=== PATIENT | female | born 1945 | race Caucasian/White ===

== ENCOUNTER 2016-12-03 13:10 | Inpatient (IN) | payer OTHER ==
[2016-12-03 13:33] VITALS: BMI 25.6
--- NOTE | 2016-12-03 13:40 | CT ---
CT HEAD WITHOUT CONTRAST CLINICAL HISTORY: 71-year-old female status post fall with loss of memory and combativeness. COMPARISON: CT head December 05, 2011. TECHNIQUE: Multiple, non-contrasted axial CT images were obtained from the skull base to the crania l vertex. Coronal and sagittal reformats were performed. FINDINGS: There are no abnormal intra- or extra-axial fluid collections, midline shift, or mass effe ct. Milton-white differentiation is normal. Global cortical involutional changes are present that are advanced for the patient's stated age. The ventricular system is enlarged but commensurate with the degree of sulcal prominence. Periventricular and supraventricular white matter hypodensity is presen t that is nonspecific in appearance, but most likely to represent microvascular ischemic changes. At herosclerotic vascular calcification is present within the carotid siphons and distal vertebral rosana morgan. The paranasal sinuses, mastoid air cells, and tympanic spaces are clear. Hyperostosis frontalis inte rna. IMPRESSION: 1. No definite evidence of an acute intracranial process. If clinical concern persists, consider MRI /MRA brain. 2. Moderate microvascular white matter ischemic changes, with associated volume loss. Reported By:
[2016-12-03] MEDS ORDERED: ADACEL TDaP IM ONE ×2 (13:58→14:42)
[2016-12-03] MEDS ORDERED: NS 1000 ML 1,000 ML IV SCH (14:00)
--- NOTE | 2016-12-03 14:07 | DR.AMS ---
HPI - Time Seen Time seen: 14:00 - PCP Primary Care Physician: DARREN MARQUEZ - Complaint Cheif Complaint Doctors Comments: EMS states they were called to unresponsive non breathing patient but when they got there the patient appeared post-ictal. Spouse state patient was walking by the tv and fell and hit her head and cut her right arm. States they are unsure of her last tetanus. EMS states patient became alert and was answering questions appropiately and they stated and IV and begin the load her in the truck and she had another unresponsive spell, hyperextended body, left facial drop with garbled speach. States patient became combative; pulled out her IV with garabled speech. Family members denies previous history of seizures. Spouse states the patient has been complaining of a headache for the past two days. Presently patient complains of hurting no matter where she is touched. Family states speech is back to normal. Patient denies nausea or vomiting. Chief Complaint:: EMS BRINGS IN PT. WITH AMS. THEY STATE UPON THEIR ARRIVAL, PT. WAS LYING IN THE FLOOR WITH AMS AND APPEARED TO HAVE A SEIZURE. AFTER EPISODE, PT. BECAME ALERT AND WAS SPEAKING WITH EMS PERSONNEL. PT. THEN HAD ANOTHER EPISODE AND HAD LEFT SIDED FACIAL DROOPING. AFTER 2ND EPSIODE, PT. BECAME COMBATIVE AND HAD GARBLED SPEECH. SPOUSE STATES PT. FELL THIS MORNING AND HIT HER HEAD AND HAD BEEN C/O HEADACHE. UNKNOWN LAST TIME NORMAL. - Reviewed Nurses Notes Reviewed: Yes - Source History Provided: Patient, Family Member, EMS - Mode of Arrival Mode of Arrival: EMS - Timing Onset of Chief Complaint: 12/03/16 Came On: Suddenly Symptom Onset: Unknown - Duration Duration: Intermittent How lon Duration: Days - Quality Quality: Decreased Alertness, Change in Behavior, Confusion - Severity Severity: Moderate, Unresponsive - Context Recent: Trauma (fell at home and hit head) History Of: None - Associated Signs and Symptoms Associated Signs and Symptoms: Headache, Slurred Speech, Change in Behavior, Unresponsiveness, Seizure PMH - PMH Past Medical History: Yes Past Medical History: Diabetes, Hypertension Past Surgical History: Yes Surgical History: Cholecystectomy, Hysterectomy Past Surgical History Comment: PACEMAKER - Family History History of Family Medical Conditions: Yes Family Medical History Comment: CVA - Social History Does patient currently use any type of tobacco product: No Have you used tobacco products in the last 12 months: No Type of Tobacco Use: None Does any household member use tobacco: No Alcohol Use: None Do you use any recreational Drugs:: No Lives With: Spouse Lives Where: Home - infectious screening In the last 2 months have you had wt loss of >10#?: NO Have you had fever, night sweats or hemotysis?: No Have you traveled outside the country in the last 6 months?: No Isolation: Standard ROS - Review of Systems Constitutional: No Symptoms Reported. negative: See HPI, Chills, Diaphoresis, Fever, Malaise, Weakness, Irritable, Fatigue, Loss of Appetite, Other Eyes: No Symptoms Reported ENTM: No Symptoms Reported. negative: See HPI, Ear Pain, Ear Discharge, Pulling on Ears, Hearing Loss, Nose Pain, Nose Discharge, Epistaxis, Nose Congestion, Mouth Pain, Mouth Swelling, Loose Teeth, Drooling, Throat Pain, Throat Swelling, Ear Foreign Body Respiratoy: No Symptoms Reported. negative: See HPI, Productive Cough, Non- Productive Cough, Moist Cough, Dry Cough, Hacking Cough, Barking Cough, Brassy Cough, Orthopnea, Short of Breath, Stridor, Wheezing, Hemoptysis, Other Cardiovascular: No Symptoms Reported Gastrointestinal/Abdominal: No Symptoms Reported. negative: See HPI, Abdominal Pain, Constipation, Diarrhea, Nausea, Vomiting, Food Intolerance, Other Genitourinary: No Symptoms Reported Neurological: No Symptoms Reported, Seizure, Speech Problem Musculoskeletal: Right, Forearm (6 cm linear laceration right arm) Integumentary: No Symptoms Reported, Wound (right arm with laceration) Hematologic/Lymphatic: No Symptoms Reported Endocrine: No Symptoms Reported Psychiatric: No Symptoms Reported. negative: See HPI, Anxiety, Depression, Hallucinations, Excessive crying, Suicidal, Other PE - Vitals Vital Signs: Pulse Pulse Resp BP BP Pulse Ox 12/03/16 15:11 86 18 146/77 97 12/03/16 14:17 103 H 20 137/78 97 12/03/16 13:47 99 H 20 139/79 100 12/03/16 13:25 121 H 17 142/66 96 07/16/15 16:40 165/94 - General Limitations: No Limitations General Appearance: Alert, In No Apparent Distress - Head Head Exam: Normal Inspection, Normocephalic. negative: Atraumatic (right forehead with ecchymotic area 3 cm; right parietal nodule) Head Exam Physical: Contusion, Hematoma. negative: Laceration, Abrasion, Raccoon Eyes, Amado's Sign, Tenderness of Temporal Artery, CSF Rhinorrhea, CSF Otorrhea, Other - Eyes Eye exam: Normal Appearance, PERRL, EOMI. negative: Scleral Icterus, Conjunctival Injection, Nystagmus, Miosis, Mydrasis, Periorbital Swelling, Periorbital Tenderness, Other Pupils: Regular, Round: Bilateral - ENT ENT Exam: Normal Exam, Normal Oropharynx, Normal External Ear Exam, Mucous Membranes Moist, TM's Normal Bilaterally External Ear Exam: Normal External Inspection TM/Canal Exam: Bilateral Normal Nose Exam: Normal Nose Exam Mouth Exam: Normal Inspection Throat Exam: Normal Inspection - Neck Neck Exam: Normal Inspection, Full ROM, Trachea Midline. negative: Tenderness, Meningismus, Lymphadenopathy, Thyromegaly, Other - Chest Chest Inspection: Normal Inspection, Symmetric Chest Wall Rise - Respiratory Respiratory Exam: Normal Lung Sounds Bilat Respiratory Exam: Bilateral Clear to Auscultation - Cardiovascular Cardiovascular Exam: Regular Rate, Normal Rhythm, Normal Heart Sounds - Abdominal Exam Abdominal Exam: Normal Inspection, Normal Bowel Sounds, Soft. negative: Distention, Tenderness, Guarding, Rebound, Rigidity, Dimnished Bowel Sounds, Hyperactive Bowel Sounds, Hypoactive Bowel Sounds, Organomegaly, Trauma, Incision, Ascites, Mass, Bruit, Pulsatile Mass, Hernia, Other Abdominal Tenderness: negative: RUQ, RLQ, LUQ, LLQ, Epigastrium, Suprapubic, Diffuse, Mild, Moderate, Severe, Other - Extremities Extremities Exam: Normal Inspection, Full ROM, Tenderness (right arm with 6 cm laceration), Normal Capillary Refill. negative: Edema, Joint Swelling, Calf Tenderness, Other - Back Back Exam: Normal Inspection, Full ROM. negative: Tenderness, (R) CVA Tenderness, (L) CVA Tenderness, Muscle Spasm, Paraspinal Tenderness, Vertebral Tenderness, Rashes, (R) Sciatic Notch Tenderness, (L) Sciatic Notch Tendern, (R ) Straight Leg Raise, (L) Straight Leg Raise, Other - Neurological Neurological Exam: Alert, CN II-XII Intact, Reflexes Normal. negative: Oriented X3 (orientated to person and olace), Normal Gait (gait not tested), Motor Sensory Deficit Patient Oriented To: Person, Place Speech: Expressive Aphasia Cranial Nerve Exam: EOM Function (II, III, IV, ): Normal, Facial Sensation (V) : Normal, Facial Palsy (VII): Normal, Gag reflex (XI): Normal, Spinal Accessory Function (XI): Normal, Tongue Deviation: Normal Cerebellar Function: negative: Normal Gait (gait not tested) Motor Strength - LUE: 5/5 Motor Strength - RUE: 5/5 Motor Strength - LLE: 5/5 Motor Strength - RLE: 5/5 Upper Motor Neuron Exam: Babinski Sign: Normal Sensory Exam Upper Extremity: Light Touch: Normal, Pin Prick: Normal DTR: achilles tendon (L): 2+, achilles tendon (R): 2+, Patellar (L): 2+, patellar (R): 2+ - Psychological Psychiatric Exam: Normal Affect, Normal Mood, Flat Affect. negative: Depressed , Agitated, Anxious, Manic, Homicidal Ideation, Suicidal Ideation, Other Expanded Psychiatric Exam: Confabulating - Skin Skin Exam: Warm, Dry, Intact, Normal Color Course - Consultation Called: 16:04 Call Returned: 16:04 (Dr. Hidalgo to admit) - Education/Counseling Education/Counseling: Patient, Family Educated On: Treatment, Diagnosis, Needs for Follow Up ROR - Labs Reviewed Laboratory Results Reviewed?: Yes (all labs and x-ray results reviewed and discussed with patient and family) Result Diagrams: 12/03/16 13:35 12/03/16 13:35 Laboratory: WBC 11.2 X10^3/uL (3.6-10.0) H 12/03/16 13:35 RBC 4.29 X10^6/uL (3.5-5.4) 12/03/16 13:35 Hgb 12.4 g/dL (12.0-16.0) 12/03/16 13:35 Hct 36.9 % (36.0-47.0) 12/03/16 13:35 MCV 86.2 fL (80.0-100.0) 12/03/16 13:35 MCH 28.9 pg (27.0-34.0) 12/03/16 13:35 MCHC 33.6 g/dL (33.0-35.0) 12/03/16 13:35 RDW 13.7 % (11.6-16.5) 12/03/16 13:35 Plt Count 328 X10^3/uL (150.0-450.0) 12/03/16 13:35 MPV 7.0 fL (7.4-11.0) L 12/03/16 13:35 Neut % 83.4 % (42.0-75.0) H 12/03/16 13:35 Lymph % 12.2 % (21.0-51.0) L 12/03/16 13:35 [place] % 4.1 % (0.0-13.0) 12/03/16 13:35 Eos % 0.0 % (0.9-2.9) L 12/03/16 13:35 Baso % 0.3 % (0.2-1.0) 12/03/16 13:35 Neut # 9.3 x10^3/uL (2.2-4.8) H 12/03/16 13:35 Lymph # 1.4 X10^3/uL (1.3-2.9) 12/03/16 13:35 [place] # 0.5 x10^3/uL (0.3-0.8) 12/03/16 13:35 Eos # 0.0 x10^3/uL (0.0-0.2) 12/03/16 13:35 Baso # 0.0 X10^3/uL (0.0-0.1) 12/03/16 13:35 Absolute Nucleated RBC 0.0 /100WBC 12/03/16 13:35 INR Target Range - 12/03/16 13:35 INR 1.28 (0.8-1.3) 12/03/16 13:35 PTT 23.5 SECONDS (22.9-36.5) 12/03/16 13:35 PTT Comment - 12/03/16 13:35 Sodium 141 mmol/L (136-145) 12/03/16 13:35 Corrected Sodium 143 mmol/L (136-145) 12/03/16 13:35 Potassium 2.9 mmol/L (3.5-5.1) L* 12/03/16 13:35 Chloride 103 mmol/L (98-107) 12/03/16 13:35 Carbon Dioxide 16.4 mmol/L (21-32) L 12/03/16 13:35 BUN 15 mg/dL (7-18) 12/03/16 13:35 Creatinine 1.46 mg/dL (0.55-1.02) H 12/03/16 13:35 Est GFR (MDRD) Af Amer 45 (>60) L 12/03/16 13:35 Est GFR (MDRD) Non-Af 38 (>60) L 12/03/16 13:35 Glucose 202 mg/dL (65-99) H 12/03/16 13:35 Calcium 8.2 mg/dL (8.5-10.1) L 12/03/16 13:35 Corrected Calcium TNP 12/03/16 13:35 Magnesium 2.4 mg/dL (1.7-2.9) 12/03/16 13:35 Total Bilirubin 1.40 mg/dL (0.2-1.0) H 12/03/16 13:35 AST 51 Units/L (15-37) H 12/03/16 13:35 ALT 47 Units/L (12-78) 12/03/16 13:35 Alkaline Phosphatase 110 Units/L (46-116) 12/03/16 13:35 Creatine Kinase 132 Units/L (26-192) 12/03/16 13:35 CK-MB (CK-2) 3.5 ng/mL (0-4.0) 12/03/16 13:35 CK/CKMB % Calc 2.7 % (<4) 12/03/16 13:35 Troponin I 0.35 ng/mL (0-1.5) 12/03/16 13:35 Total Protein 8.1 g/dL (6.4-8.2) 12/03/16 13:35 Albumin 3.8 g/dL (3.4-5.0) 12/03/16 13:35 Globulin 4.3 g/dL (2.5-4.5) 12/03/16 13:35 Albumin/Globulin Ratio 0.9 Ratio (1.1-2.1) L 12/03/16 13:35 Specimen Type Catherized urine 12/03/16 14:11 Urine Color Yellow (YELLOW) 12/03/16 14:11 Urine Appearance Clear (CLEAR) 12/03/16 14:11 Urine pH 6.5 (5.0 - 8.0) 12/03/16 14:11 Ur Specific [place] 1.020 (1.000-1.030) 12/03/16 14:11 Urine Protein 2+ (NEGATIVE) 12/03/16 14:11 Urine Glucose (UA) Negative (NEGATIVE) 12/03/16 14:11 Urine Ketones 1+ (NEGATIVE) 12/03/16 14:11 Urine Occult Blood 4+ (NEGATIVE) 12/03/16 14:11 Urine Nitrite Negative (NEGATIVE) 12/03/16 14:11 Urine Bilirubin Negative (NEGATIVE) 12/03/16 14:11 Urine Urobilinogen 2+ (NORMAL) 12/03/16 14:11 Ur Leukocyte Esterase 1+ (NEGATIVE) 12/03/16 14:11 Urine RBC 02 - 04 /HPF (NEGATIVE) 12/03/16 14:11 Urine WBC 01 - 04 /HPF (NEGATIVE) 12/03/16 14:11 Ur Squamous Epith Cells Few /HPF (NEGATIVE) 12/03/16 14:11 Ur Renal Epithelial Cell Rare /HPF (NEGATIVE) 12/03/16 14:11 Amorphous Sediment 1+ /HPF (NEGATIVE) 12/03/16 14:11 Urine Bacteria Negative /HPF (NEGATIVE) 12/03/16 14:11 Urine Mucus Moderate /HPF (NEGATIVE) 12/03/16 14:11 Ur Culture Indicated? No/not indicated 12/03/16 14:11 - XRAY XRAY Interpreted by: Radiologist (CT head: No definite evidence of acute intracranial process. Moderate microvasculat white matter ischemic changes.) XRAY Findings: CXR: No radiographic evidence of acute cardiopulmonary process - Diagnosis Discharge Problem: Prob seizure disorder, new onset, Hypokalemia, Contusion of head, Laceration of right upper arm, Fall against object, Chronic kidney disease Altered mental status Qualifiers: Altered mental status type: transient alteration of awareness Qualified Code(s) : R40.4 - Transient alteration of awareness - Discharge Plan Disposition: ADMITTED INPATIENT Condition: Stable - Follow ups/Referrals Follow ups/Referrals: DARREN MARQUEZ [Primary Care Provider] - 3 days - Instructions
[2016-12-03 14:12] LABS: BASOPHILS % (AUTO) 0.3 % (0.2-1.0); HEMATOCRIT 36.9 % (36.0-47.0); HEMOGLOBIN 12.4 g/dL (12.0-16.0); LYMPHOCYTES # (AUTO) 1.4 X10^3/uL (1.3-2.9); LYMPHOCYTES % (AUTO) 12.2 % (21.0-51.0); MEAN CORPUSCULAR HEMOGLOBIN 28.9 pg (27.0-34.0); MEAN CORPUSCULAR HGB CONC 33.6 g/dL (33.0-35.0); MEAN CORPUSCULAR VOLUME 86.2 fL (80.0-100.0); MONOCYTES # (AUTO) 0.5 x10^3/uL (0.3-0.8); MONOCYTES % (AUTO) 4.1 % (0.0-13.0); NEUTROPHILS # (AUTO) 9.3 x10^3/uL (2.2-4.8); NEUTROPHILS % (AUTO) 83.4 % (42.0-75.0); PLATELET COUNT 328 X10^3/uL (150.0-450.0); RED BLOOD COUNT 4.29 X10^6/uL (3.5-5.4); RED CELL DISTRIBUTION WIDTH 13.7 % (11.6-16.5); WHITE BLOOD COUNT 11.2 X10^3/uL (3.6-10.0)
[2016-12-03 14:21] LABS: BILIRUBIN,URINE NEGATIVE (NEGATIVE); BLOOD/HEMOGLOBIN,URINE 4+ (NEGATIVE); GLUCOSE, URINE NEGATIVE (NEGATIVE); KETONES,URINE 1+ (NEGATIVE); LEUKOCYTE ESTERASE ,URINE 1+ (NEGATIVE); NITRITES,URINE NEGATIVE (NEGATIVE); PH,URINE 6.5 (5.0 - 8.0); PROTEIN,URINE 2+ (NEGATIVE); UROBILINOGEN,URINE 2+ (NORMAL)
[2016-12-03 14:26] LABS: ALANINE AMINOTRANSFERASE 47 Units/L (12-78); ALBUMIN 3.8 g/dL (3.4-5.0); ALKALINE PHOSPHATASE 110 Units/L (46-116); ASPARTATE AMINO TRANSFERASE 51 Units/L (15-37); BLOOD UREA NITROGEN 15 mg/dL (7-18); CALCIUM 8.2 mg/dL (8.5-10.1); CARBON DIOXIDE 16.4 mmol/L (21-32); CHLORIDE 103 mmol/L (98-107); CKMB % 2.7 % (<4); COR NA(FOR HYPERGLY) 143 mmol/L (136-145); CREATINE KINASE 132 Units/L (26-192); CREATINE KINASE MB 3.5 ng/mL (0-4.0); CREATININE 1.46 mg/dL (0.55-1.02); GLUCOSE 202 mg/dL (65-99); MAGNESIUM 2.4 mg/dL (1.7-2.9); SODIUM 141 mmol/L (136-145); TOTAL PROTEIN 8.1 g/dL (6.4-8.2); TROPONIN I 0.35 ng/mL (0-1.5); eGFR BLACK RACES 45 (>60); eGFR NON BLACK RACES 38 (>60)
[2016-12-03 14:33] LABS: APPEARANCE,URINE CLEAR (CLEAR); COLOR,URINE YELLOW (YELLOW)
[2016-12-03 14:37] LABS: AMORPHOUS SEDIMENT,UR 1+ /HPF (NEGATIVE); BACTERIA,URINE NEGATIVE /HPF (NEGATIVE); MUCUS,URINE MODERATE /HPF (NEGATIVE); RENAL EPITHELIAL CELLS,URINE RARE /HPF (NEGATIVE); SQUAMOUS EPITHELIAL CELL,UR FEW /HPF (NEGATIVE)
[2016-12-03] MEDS ORDERED: ZOFRAN INJ 4 MG VIAL IVP ONE (14:41)
[2016-12-03] MEDS ORDERED: ZOFRAN INJ 4 MG VIAL ONE (14:42)
--- NOTE | 2016-12-03 15:03 | RAD ---
HISTORY: Chest pain. Status post fall, altered mental status. Study: AP chest Comparison: 12/05/2011 Findings: There is a dual lead pacemaker device present. No acute displaced rib fractures are demonstrated, ho wever nondisplaced rib fractures may be radiographically occult. The lungs are clear. No consolidation. There are no pleural effusions. The tushar and cardiomediastinal silhouette appear normal. IMPRESSION: 1. No radiographic evidence of an acute cardiopulmonary process. Reported By:
[2016-12-03] MEDS ORDERED: NS 1/2 1000 ML IV 1,000 ML IV ONE (15:25)
[2016-12-03] MEDS: K-LYTE EFFERVESCENT PO SCH (15:36)
[2016-12-03] MEDS: NS 1/2 + KCL 20 MEQ/L 1,000 ML IV SCH (15:36)
[2016-12-03] MEDS ORDERED: HumuLIN R SC PRN (16:13)
[2016-12-03] MEDS: PROTONIX INJ 40 MG VIAL IVP SCH (17:18)
[2016-12-03] MEDS ORDERED: CEREBYX IVP ONE ×2 (21:30)
[2016-12-03] MEDS ORDERED: NS IVP ONE ×2 (21:30)
[2016-12-03] MEDS ORDERED: ATIVAN INJ 2 MG VIAL IVP PRN (22:24)
[2016-12-04] MEDS ORDERED: ZOFRAN INJ 4 MG VIAL IVP PRN (00:18)
[2016-12-04] MEDS: NS 1/2 + KCL 20 MEQ/L 1,000 ML IV SCH ×3 (00:33→15:54)
[2016-12-04 05:52] LABS: BASOPHILS # (AUTO) 0.1 X10^3/uL (0.0-0.1); BASOPHILS % (AUTO) 0.5 % (0.2-1.0); EOSINOPHILS % (AUTO) 0.2 % (0.9-2.9); HEMATOCRIT 34.7 % (36.0-47.0); HEMOGLOBIN 11.8 g/dL (12.0-16.0); LYMPHOCYTES # (AUTO) 1.2 X10^3/uL (1.3-2.9); LYMPHOCYTES % (AUTO) 8.3 % (21.0-51.0); MEAN CORPUSCULAR HEMOGLOBIN 28.8 pg (27.0-34.0); MEAN CORPUSCULAR VOLUME 84.8 fL (80.0-100.0); MEAN PLATELET VOLUME 7.4 fL (7.4-11.0); MONOCYTES # (AUTO) 0.9 x10^3/uL (0.3-0.8); MONOCYTES % (AUTO) 6.6 % (0.0-13.0); NEUTROPHILS # (AUTO) 11.7 x10^3/uL (2.2-4.8); NEUTROPHILS % (AUTO) 84.4 % (42.0-75.0); PLATELET COUNT 279 X10^3/uL (150.0-450.0); RED BLOOD COUNT 4.09 X10^6/uL (3.5-5.4); RED CELL DISTRIBUTION WIDTH 13.8 % (11.6-16.5); WHITE BLOOD COUNT 13.9 X10^3/uL (3.6-10.0)
[2016-12-04 06:16] LABS: ALANINE AMINOTRANSFERASE 46 Units/L (12-78); ALBUMIN 3.7 g/dL (3.4-5.0); ALKALINE PHOSPHATASE 99 Units/L (46-116); ASPARTATE AMINO TRANSFERASE 65 Units/L (15-37); BLOOD UREA NITROGEN 20 mg/dL (7-18); CALCIUM 8.1 mg/dL (8.5-10.1); CARBON DIOXIDE 26.2 mmol/L (21-32); CHLORIDE 102 mmol/L (98-107); CHOLESTEROL 147 mg/dL (0-200); COR NA(FOR HYPERGLY) 138 mmol/L (136-145); CREATININE 1.48 mg/dL (0.55-1.02); GLUCOSE 125 mg/dL (65-99); HDL CHOLESTEROL 49 mg/dL (40-60); SODIUM 137 mmol/L (136-145); TOTAL PROTEIN 7.8 g/dL (6.4-8.2); TRIGLYCERIDES 59 mg/dL (0-150); TROPONIN I 0.26 ng/mL (0-1.5); eGFR BLACK RACES 45 (>60); eGFR NON BLACK RACES 37 (>60)
[2016-12-04 06:22] LABS: CKMB % 0.3 % (<4); CREATINE KINASE MB 6.3 ng/mL (0-4.0)
[2016-12-04 06:23] LABS: CREATINE KINASE 2268 Units/L (26-192)
[2016-12-04] MEDS: K-LYTE EFFERVESCENT PO SCH (08:16)
[2016-12-04] MEDS: PROTONIX INJ 40 MG VIAL IVP SCH (08:27)
[2016-12-04] MEDS ORDERED: ATIVAN INJ 2 MG VIAL IVP PRN (08:59)
[2016-12-05] MEDS: NS 1/2 + KCL 20 MEQ/L 1,000 ML IV SCH ×4 (00:10→20:39)
[2016-12-05 05:01] LABS: BASOPHILS % (AUTO) 0.4 % (0.2-1.0); EOSINOPHILS % (AUTO) 0.1 % (0.9-2.9); HEMATOCRIT 33.1 % (36.0-47.0); HEMOGLOBIN 11.3 g/dL (12.0-16.0); LYMPHOCYTES # (AUTO) 1.3 X10^3/uL (1.3-2.9); LYMPHOCYTES % (AUTO) 14.8 % (21.0-51.0); MEAN CORPUSCULAR VOLUME 85.3 fL (80.0-100.0); MEAN PLATELET VOLUME 7.7 fL (7.4-11.0); MONOCYTES # (AUTO) 0.6 x10^3/uL (0.3-0.8); MONOCYTES % (AUTO) 7.1 % (0.0-13.0); NEUTROPHILS # (AUTO) 7.1 x10^3/uL (2.2-4.8); NEUTROPHILS % (AUTO) 77.6 % (42.0-75.0); PLATELET COUNT 220 X10^3/uL (150.0-450.0); RED BLOOD COUNT 3.88 X10^6/uL (3.5-5.4); RED CELL DISTRIBUTION WIDTH 13.7 % (11.6-16.5); WHITE BLOOD COUNT 9.1 X10^3/uL (3.6-10.0)
[2016-12-05 05:10] LABS: ALANINE AMINOTRANSFERASE 49 Units/L (12-78); ALBUMIN 3.3 g/dL (3.4-5.0); ALKALINE PHOSPHATASE 85 Units/L (46-116); ASPARTATE AMINO TRANSFERASE 74 Units/L (15-37); BLOOD UREA NITROGEN 21 mg/dL (7-18); CALCIUM 7.8 mg/dL (8.5-10.1); CARBON DIOXIDE 24.6 mmol/L (21-32); CHLORIDE 105 mmol/L (98-107); COR CA(FOR HYPOALB) 8.4 mg/dL (8.5-10.1); CREATININE 1.33 mg/dL (0.55-1.02); GLUCOSE 93 mg/dL (65-99); SODIUM 137 mmol/L (136-145); eGFR BLACK RACES 51 (>60); eGFR NON BLACK RACES 42 (>60)
[2016-12-05 05:48] LABS: TROPONIN I 0.25 ng/mL (0-1.5)
[2016-12-05 05:51] LABS: CKMB % 0.3 % (<4)
[2016-12-05 05:53] LABS: CREATINE KINASE MB 8.1 ng/mL (0-4.0)
[2016-12-05] MEDS: PROTONIX INJ 40 MG VIAL IVP SCH (08:06)
[2016-12-05] MEDS: K-LYTE EFFERVESCENT PO SCH (08:08)
[2016-12-05] MEDS ORDERED: ATIVAN INJ 2 MG VIAL IVP PRN (08:51)
[2016-12-05] MEDS ORDERED: SNACK - Diabetic Appropriate PO SCH (20:00)
[2016-12-06 05:21] LABS: BASOPHILS % (AUTO) 0.3 % (0.2-1.0); EOSINOPHILS % (AUTO) 0.3 % (0.9-2.9); HEMATOCRIT 34.2 % (36.0-47.0); HEMOGLOBIN 11.6 g/dL (12.0-16.0); LYMPHOCYTES # (AUTO) 1.1 X10^3/uL (1.3-2.9); LYMPHOCYTES % (AUTO) 11.5 % (21.0-51.0); MEAN CORPUSCULAR VOLUME 85.2 fL (80.0-100.0); MEAN PLATELET VOLUME 7.6 fL (7.4-11.0); MONOCYTES # (AUTO) 0.6 x10^3/uL (0.3-0.8); MONOCYTES % (AUTO) 6.7 % (0.0-13.0); NEUTROPHILS # (AUTO) 7.9 x10^3/uL (2.2-4.8); NEUTROPHILS % (AUTO) 81.2 % (42.0-75.0); PLATELET COUNT 253 X10^3/uL (150.0-450.0); RED BLOOD COUNT 4.01 X10^6/uL (3.5-5.4); RED CELL DISTRIBUTION WIDTH 13.5 % (11.6-16.5); WHITE BLOOD COUNT 9.7 X10^3/uL (3.6-10.0)
[2016-12-06 05:32] LABS: ALANINE AMINOTRANSFERASE 62 Units/L (12-78); ALBUMIN 3.4 g/dL (3.4-5.0); ALKALINE PHOSPHATASE 85 Units/L (46-116); ASPARTATE AMINO TRANSFERASE 103 Units/L (15-37); BLOOD UREA NITROGEN 21 mg/dL (7-18); CALCIUM 8.1 mg/dL (8.5-10.1); CARBON DIOXIDE 21.6 mmol/L (21-32); CHLORIDE 104 mmol/L (98-107); GLUCOSE 92 mg/dL (65-99); SODIUM 137 mmol/L (136-145); TOTAL PROTEIN 7.3 g/dL (6.4-8.2); eGFR BLACK RACES > 60 (>60); eGFR NON BLACK RACES 52 (>60)
[2016-12-06] MEDS: NS 1/2 + KCL 20 MEQ/L 1,000 ML IV SCH ×2 (06:23→08:11)
[2016-12-06] MEDS: K-LYTE EFFERVESCENT PO SCH (08:05)
[2016-12-06] MEDS: PROTONIX INJ 40 MG VIAL IVP SCH (08:11)
[2016-12-06 08:13] VITALS: BP 150/69
== END 2016-12-06 10:30 | disposition home or self-care (01) | DRG 884 ==
LOC: ER 13:12 → ICU 16:10 → OBSVTOIN 12-04 08:30
PROVIDERS: ADMIT Obstetrics & Gynecology Obstetrics; ATTEND Obstetrics & Gynecology Obstetrics
PROC: 3E0234Z Introduction of Serum, Toxoid and Vaccine into Muscle, Percutaneous Approach (ICD-10-PCS; principal; 2016-12-03)
DX: R40.4 Transient alteration of awareness (principal); S00.83XA Contusion of other part of head, initial encounter; S41.111A Laceration without foreign body of right upper arm, initial encounter; G40.802 Other epilepsy, not intractable, without status epilepticus; R51 Headache; W18.09XA Striking against other object with subsequent fall, initial encounter; E11.65 Type 2 diabetes mellitus with hyperglycemia; I12.9 Hypertensive chronic kidney disease with stage 1 through stage 4 chronic kidney disease, or unspecified chronic kidney disease; Z95.0 Presence of cardiac pacemaker; D72.828 Other elevated white blood cell count; E87.6 Hypokalemia; Y92.098 Other place in other non-institutional residence as the place of occurrence of the external cause; N18.9 Chronic kidney disease, unspecified; R94.4 Abnormal results of kidney function studies; F19.931 Other psychoactive substance use, unspecified with withdrawal delirium; R26.89 Other abnormalities of gait and mobility; Z23 Encounter for immunization
CPT/HCPCS: 36415; 51702; 70450; 71010; 80053; 80061; 80307; 81001; 82550; 82553; 83735; 84132; 84484; 85025; 85610; 85730; 93005; 93010; 96365; 96372; 96374; 99284; A4222; C9113; J7030; S0078; G0378; G0434; J1815; J2060; J2405

== ENCOUNTER 2016-12-11 07:08 | Emergency (ER) | payer OTHER ==
[2016-12-11 07:16] VITALS: BP 164/92; BMI 23.4
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
[2016-12-11 08:06] LABS: BASOPHILS # (AUTO) 0.1 X10^3/uL (0.0-0.1); BASOPHILS % (AUTO) 0.9 % (0.2-1.0); EOSINOPHILS # (AUTO) 0.1 x10^3/uL (0.0-0.2); EOSINOPHILS % (AUTO) 1.1 % (0.9-2.9); HEMATOCRIT 36.7 % (36.0-47.0); HEMOGLOBIN 12.9 g/dL (12.0-16.0); LYMPHOCYTES # (AUTO) 1.8 X10^3/uL (1.3-2.9); LYMPHOCYTES % (AUTO) 20.7 % (21.0-51.0); MEAN CORPUSCULAR HEMOGLOBIN 29.4 pg (27.0-34.0); MEAN CORPUSCULAR HGB CONC 35.2 g/dL (33.0-35.0); MEAN CORPUSCULAR VOLUME 83.4 fL (80.0-100.0); MEAN PLATELET VOLUME 7.5 fL (7.4-11.0); MONOCYTES # (AUTO) 0.6 x10^3/uL (0.3-0.8); MONOCYTES % (AUTO) 7.2 % (0.0-13.0); NEUTROPHILS # (AUTO) 6.2 x10^3/uL (2.2-4.8); NEUTROPHILS % (AUTO) 70.1 % (42.0-75.0); PLATELET COUNT 336 X10^3/uL (150.0-450.0); RED CELL DISTRIBUTION WIDTH 13.6 % (11.6-16.5); WHITE BLOOD COUNT 8.9 X10^3/uL (3.6-10.0)
--- NOTE | 2016-12-11 08:11 | RAD ---
HISTORY: Chest pain. Study: Portable chest. Comparison: Chest x-ray dated December 03, 2016. Findings: Study is slightly limited secondary to the lung apices off the field of view. Stable cardiac silhoue tte. Multilead left chest cardiac pacemaker appears unchanged. No obvious focal consolidation, pleur al effusion, or pneumothorax. The osseous structures appear unchanged. Moderate-sized hiatal hernia. IMPRESSION: 1. No acute cardiopulmonary disease. Reported By:
--- NOTE | 2016-12-11 08:14 | CT ---
HISTORY: Fall. Study: CT brain without contrast Comparison: CT head dated December 05, 2011. Technique: Multiple axial images of the brain were obtained from the skull base to the vertex without administr ation of IV contrast. Dose reduction techniques including Automated Exposure Control (AEC) and adju stment of mA and kV were utilized. Findings: Age related cortical atrophy and chronic small vessel ischemic changes. No acute intraparenchymal he morrhage or mass can be identified. No extra-axial fluid collections are seen. No alteration in th e attenuation of the brain parenchyma can be identified to suggest acute or subacute ischemic change . The ventricular system is symmetric and nondilated. The extracranial structures are grossly unre markable. IMPRESSION: 1. No acute intracranial process can be identified. Reported By:
[2016-12-11 08:31] LABS: ALANINE AMINOTRANSFERASE 70 Units/L (12-78); ALKALINE PHOSPHATASE 83 Units/L (46-116); ASPARTATE AMINO TRANSFERASE 35 Units/L (15-37); BLOOD UREA NITROGEN 19 mg/dL (7-18); CALCIUM 8.4 mg/dL (8.5-10.1); CARBON DIOXIDE 27.7 mmol/L (21-32); CHLORIDE 103 mmol/L (98-107); CKMB % 1.1 % (<4); CREATINE KINASE 123 Units/L (26-192); CREATINE KINASE MB 1.4 ng/mL (0-4.0); CREATININE 0.94 mg/dL (0.55-1.02); GLUCOSE 125 mg/dL (65-99); TOTAL PROTEIN 7.6 g/dL (6.4-8.2); eGFR BLACK RACES > 60 (>60); eGFR NON BLACK RACES > 60 (>60)
--- NOTE | 2016-12-11 08:31 | CT ---
HISTORY: Fall. Study: CT cervical spine without contrast Comparison: None. Technique: Multiple axial images of the cervical spine were obtained from the skull base to the thor acic inlet without administration of IV contrast. Sagittal and coronal reformats were performed and reviewed. Dose reduction techniques including Automated Exposure Control (AEC) and adjustment of mA and kV were utilized. Findings: Anatomic alignment without acute fracture or listhesis. The vertebral body heights and disc spaces a re maintained. No significant neural foraminal narrowing or spinal canal stenosis. The prevertebral soft tissues and lung apices appear normal. IMPRESSION: 1. No evidence for traumatic injury of the cervical spine. Reported By:
[2016-12-11 08:47] LABS: ALBUMIN 3.8 g/dL (3.4-5.0); MAGNESIUM 1.6 mg/dL (1.7-2.9); TROPONIN I 0.19 ng/mL (0-1.5)
[2016-12-11 08:55] LABS: COR NA(FOR HYPERGLY) 142 mmol/L (136-145); SODIUM 141 mmol/L (136-145)
[2016-12-11] MEDS ORDERED: K-LYTE EFFERVESCENT ONE (09:18)
[2016-12-11] MEDS ORDERED: NS 1000 ML 1,000 ML IV ONE (09:27)
[2016-12-11] MEDS ORDERED: NS 1000 ML 1,000 ML ONE (09:36)
[2016-12-11] MEDS ORDERED: MICRO K EXTEN CAP 10 MEQ PO ONE (09:48)
[2016-12-11] MEDS ORDERED: NS 1000 ML 1,000 ML IV SCH (10:00)
[2016-12-12] MEDS ORDERED: K-LYTE EFFERVESCENT PO ONE (09:17)
== END 2016-12-11 11:05 | disposition home or self-care (01) ==
LOC: ER 07:11
DX: E87.6 Hypokalemia (principal); R79.1 Abnormal coagulation profile; R51 Headache; I10 Essential (primary) hypertension; W19.XXXA Unspecified fall, initial encounter; Y92.009 Unspecified place in unspecified non-institutional (private) residence as the place of occurrence of the external cause
CPT/HCPCS: 36415; 70450; 71010; 72125; 80053; 82550; 82553; 83735; 84484; 85025; 85610; 85730; 93005; 93010; 96374; 99283; A4222

== ENCOUNTER 2017-02-09 10:31 | Emergency (ER) | payer OTHER ==
[2017-02-09 10:43] VITALS: BMI 20.7
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
[2017-02-09] MEDS ORDERED: ADACEL TDaP IM ONE ×2 (11:56→11:58)
[2017-02-09] MEDS ORDERED: XYLOCAINE 1 % (PLAIN) ONE (13:13)
[2017-02-09 15:49] VITALS: BP 116/81
== END 2017-02-09 15:51 | disposition home or self-care (01) ==
LOC: ER 10:35
DX: S01.81XA Laceration without foreign body of other part of head, initial encounter (principal); S00.83XA Contusion of other part of head, initial encounter; H11.31 Conjunctival hemorrhage, right eye; S09.8XXA Other specified injuries of head, initial encounter; W19.XXXA Unspecified fall, initial encounter; Y92.9 Unspecified place or not applicable
CPT/HCPCS: 70450; 70486; 90471; 99282; 99283; J2001

== ENCOUNTER 2017-08-14 00:31 | Emergency (ER) | payer OTHER ==
[2017-08-14 00:39] VITALS: BMI 20.7
[2017-08-14] MEDS ORDERED: ATIVAN INJ 2 MG VIAL ONE (00:46)
[2017-08-14] MEDS ORDERED: ATIVAN INJ 2 MG VIAL IVP ONE (00:55)
[2017-08-14 01:06] LABS: BILIRUBIN,URINE NEGATIVE (NEGATIVE); BLOOD/HEMOGLOBIN,URINE 2+ (NEGATIVE); GLUCOSE, URINE NEGATIVE (NEGATIVE); KETONES,URINE 1+ (NEGATIVE); LEUKOCYTE ESTERASE ,URINE NEGATIVE (NEGATIVE); NITRITES,URINE NEGATIVE (NEGATIVE); PROTEIN,URINE 2+ (NEGATIVE); UROBILINOGEN,URINE NORMAL (NORMAL)
[2017-08-14 01:11] LABS: APPEARANCE,URINE CLEAR (CLEAR); COLOR,URINE YELLOW (YELLOW)
[2017-08-14 01:12] LABS: BACTERIA,URINE NEGATIVE /HPF (NEGATIVE); RBC,URINE 0-2 /HPF (NONE SEEN); SQUAMOUS EPITHELIAL CELL,UR RARE /HPF (NEGATIVE)
--- NOTE | 2017-08-14 01:17 | DR.GENAD ---
HPI - PCP Primary Care Physician: sg - HPI Comment HPI Comment: SHE IS NOT FEELING GOOD AND IS CONFUSE IN ED. NO FEVER. NAUSEA BUT NO VOMITING. DURING EXAMINATION, PATIENT TONIC, CLONIC SEIZURE AND WAS POST ICTAL. ON METHADON AND XANAX FOR CHRONIC PAIN AND ANXIETY. - Complaint/Symptoms Chief Complaint Doctors Comments: HERE VIA EMS FOR POSSIBLE STROKE. PATIENT DONT FEEL GOOD. Chief Complaint:: EMS CALLED TO POSSIBLE STROKE PT HAS EQUAL HAND DOCK BOSS NO WEAKNESS OR FACIAL DROOP PT STATES" I JUST DON'T FEEL GOOD" - Nurses notes reviewed Nurses Notes Review: Yes - Source History Provided: EMS - Mode of Arrival Mode of Arrival: EMS - Timing Onset of Chief Complaint: 08/14/17 Came on: Gradually - Duration Duration: Intermittent Duration: Hours - Severity Severity: Moderate PMH - PMH Past Medical History: Yes Past Medical History: Diabetes, Hypertension Past Surgical History: Yes Surgical History: Cholecystectomy, Hysterectomy - Family History History of Family Medical Conditions: Yes Family Medical History: Diabetes Mellitus, Cancer, [place], Hypertension - Social History Do you use any recreational Drugs:: No Lives With: Family Lives Where: Home - infectious screening In the last 2 months have you had wt loss of >10#?: NO Have you had fever, night sweats or hemotysis?: No Have you traveled outside the country in the last 6 months?: No Isolation: Standard ROS - Review of Systems Constitutional: Weakness, Fatigue, Other (POST IC) Eyes: No Symptoms Reported. negative: Eye Pain, Discharge ENTM: negative: Ear Pain, Nose Discharge, Nose Congestion, Throat Pain Respiratoy: Non-Productive Cough. negative: Productive Cough, Short of Breath, Wheezing, Hemoptysis Cardiovascular: Chest Pain. negative: Edema, Palpitations Gastrointestinal/Abdominal: No Symptoms Reported. negative: Abdominal Pain, Constipation, Diarrhea, Nausea, Vomiting Genitourinary: negative: Dysuria, Hematuria Neurological: No Symptoms Reported, Headache, Weakness, Dizziness Musculoskeletal: Back Pain, Muscle Pain, Back Integumentary: No Symptoms Reported. negative: Change in Color Hematologic/Lymphatic: No Symptoms Reported Endocrine: No Symptoms Reported All Other Systems: Reviewed and Negative PE - Vital Signs Vitals: Temperature 98.4 F Pulse Rate [Apical] 87 Pulse Rate 62 Respiratory Rate 24 Blood Pressure [Left Arm] 147/82 Blood Pressure 134/85 O2 Sat by Pulse Oximetry 100 - General Limitations: Altered Mental Status General Appearance: Alert - Head Head Exam: Atraumatic - Eyes Eye exam: PERRL. negative: Scleral Icterus, Conjunctival Injection - ENT ENT Exam: Normal Oropharynx, Normal External Ear Exam, TM's Normal Bilaterally External Ear Exam: Normal External Inspection TM/Canal Exam: Bilateral Normal Nose Exam: Normal Nose Exam Mouth Exam: Normal Inspection. negative: Tongue Swelling Throat Exam: Normal Inspection. negative: Tonsillar Erythema, Tonsillomegaly - Neck Neck Exam: Trachea Midline. negative: Tenderness, Meningismus, Lymphadenopathy - Chest Chest Inspection: Symmetric Chest Wall Rise - Respiratory Respiratory Exam: Normal Lung Sounds Bilat Respiratory Exam: Bilateral Rhonchi, Upper Rhonchi, Lower Rhonchi - Cardiovascular Cardiovascular Exam: Regular Rate, Normal Rhythm, Normal Heart Sounds - Abdominal Exam Abdominal Exam: Normal Bowel Sounds, Soft. negative: Tenderness - Extremities Extremities Exam: negative: Edema, Calf Tenderness - Back Back Exam: Tenderness (LOWER BACK TENDERNESS.) - Neurologic Neurological Exam: Alert, Other (CONFUSE.). negative: Motor Sensory Deficit - Psychiatric Psychiatric Exam: Anxious - Skin Skin Exam: Erythema MDM - Additional Information Additional Information Obtained From: Family - Differential Diagnosis Differential Diagnosis: SEIZURE, AMS, MD, CVA, TIA, UTI Course - Treatment Treatment: SEE ORDERS. - Consultation Consultation Comments: DR. BEST AT [facility] ACCEPTED PATIENT FOR TRANSFER. - Education/Counseling Education/Counseling: Patient, Family Educated On: Diagnosis ROR - Labs Reviewed Laboratory Results Reviewed?: Yes Result Diagrams: 08/14/17 01:15 08/14/17 01:15 Laboratory: WBC 9.7 X10^3/uL (3.6-10.0) 08/14/17 01:15 RBC 4.23 X10^6/uL (3.5-5.4) 08/14/17 01:15 Hgb 12.5 g/dL (12.0-16.0) 08/14/17 01:15 Hct 37.5 % (36.0-47.0) 08/14/17 01:15 MCV 88.6 fL (80.0-100.0) 08/14/17 01:15 MCH 29.6 pg (27.0-34.0) 08/14/17 01:15 MCHC 33.4 g/dL (33.0-35.0) 08/14/17 01:15 RDW 13.5 % (11.6-16.5) 08/14/17 01:15 Plt Count 359 X10^3/uL (150.0-450.0) 08/14/17 01:15 MPV 7.0 fL (7.4-11.0) L 08/14/17 01:15 Neut % (Auto) 73.3 % (42.0-75.0) 08/14/17 01:15 Lymph % (Auto) 18.9 % (21.0-51.0) L 08/14/17 01:15 Delta % (Auto) 7.2 % (0.0-13.0) 08/14/17 01:15 Eos % (Auto) 0.2 % (0.9-2.9) L 08/14/17 01:15 Baso % (Auto) 0.4 % (0.2-1.0) 08/14/17 01:15 Neut # (Auto) 7.1 x10^3/uL (2.2-4.8) H 08/14/17 01:15 Lymph # (Auto) 1.8 X10^3/uL (1.3-2.9) 08/14/17 01:15 Delta # (Auto) 0.7 x10^3/uL (0.3-0.8) 08/14/17 01:15 Eos # (Auto) 0.0 x10^3/uL (0.0-0.2) 08/14/17 01:15 Baso # (Auto) 0.0 X10^3/uL (0.0-0.1) 08/14/17 01:15 Absolute Nucleated RBC 0.0 /100WBC 08/14/17 01:15 Sodium 138 mmol/L (136-145) 08/14/17 01:15 Corrected Sodium 140 mmol/L (136-145) 08/14/17 01:15 Potassium 3.4 mmol/L (3.5-5.1) L 08/14/17 01:15 Chloride 100 mmol/L (98-107) 08/14/17 01:15 Carbon Dioxide 12.2 mmol/L (21-32) L* 08/14/17 01:15 BUN 14 mg/dL (7-18) 08/14/17 01:15 Creatinine 1.41 mg/dL (0.55-1.02) H 08/14/17 01:15 Est GFR (MDRD) Af Amer 47 (>60) L 08/14/17 01:15 Est GFR (MDRD) Non-Af 39 (>60) L 08/14/17 01:15 Glucose 170 mg/dL (65-99) H 08/14/17 01:15 Calcium 8.8 mg/dL (8.5-10.1) 08/14/17 01:15 Corrected Calcium TNP 08/14/17 01:15 Total Bilirubin 1.00 mg/dL (0.2-1.0) 08/14/17 01:15 AST 27 Units/L (15-37) 08/14/17 01:15 ALT 23 Units/L (12-78) 08/14/17 01:15 Alkaline Phosphatase 92 Units/L (46-116) 08/14/17 01:15 Creatine Kinase 71 Units/L (26-192) 08/14/17 03:35 CK-MB (CK-2) 1.6 ng/mL (0-4.0) 08/14/17 03:35 CK/CKMB % Calc 2.3 % (<4) 08/14/17 03:35 Troponin I 0.31 ng/mL (0-1.5) 08/14/17 03:35 Total Protein 8.5 g/dL (6.4-8.2) H 08/14/17 01:15 Albumin 4.2 g/dL (3.4-5.0) 08/14/17 01:15 Globulin 4.3 g/dL (2.5-4.5) 08/14/17 01:15 Albumin/Globulin Ratio 1.0 Ratio (1.1-2.1) L 08/14/17 01:15 Specimen Type Catherized urine 08/14/17 00:55 Urine Color Yellow (YELLOW) 08/14/17 00:55 Urine Appearance Clear (CLEAR) 08/14/17 00:55 Urine pH 5.0 (5.0 - 8.0) 08/14/17 00:55 Ur Specific [place] 1.020 (1.000-1.030) 08/14/17 00:55 Urine Protein 2+ (NEGATIVE) 08/14/17 00:55 Urine Glucose (UA) Negative (NEGATIVE) 08/14/17 00:55 Urine Ketones 1+ (NEGATIVE) 08/14/17 00:55 Urine Occult Blood 2+ (NEGATIVE) 08/14/17 00:55 Urine Nitrite Negative (NEGATIVE) 08/14/17 00:55 Urine Bilirubin Negative (NEGATIVE) 08/14/17 00:55 Urine Urobilinogen Normal (NORMAL) 08/14/17 00:55 Ur Leukocyte Esterase Negative (NEGATIVE) 08/14/17 00:55 Urine RBC 0-2 /HPF (NONE SEEN) 08/14/17 00:55 Urine WBC None seen /HPF (NONE SEEN) 08/14/17 00:55 Ur Squamous Epith Cells Rare /HPF (NEGATIVE) 08/14/17 00:55 Urine Bacteria Negative /HPF (NEGATIVE) 08/14/17 00:55 Ur Culture Indicated? No/not indicated 08/14/17 00:55 Urine Opiates Screen Negative (NEG=<300) 08/14/17 00:44 Urine Methadone Screen Positive (NEG=<300) A 08/14/17 00:44 Ur Barbiturates Screen Negative (NEG=<200) 08/14/17 00:44 Ur Phencyclidine Scrn Negative (NEG=<25) 08/14/17 00:44 Ur Amphetamines Screen Negative (NEG=<1000) 08/14/17 00:44 U Benzodiazepines Scrn Negative (NEG=<200) 08/14/17 00:44 Urine Cocaine Screen Negative (NEG=<300) 08/14/17 00:44 U Marijuana (THC) Screen Negative (NEG=<50) 08/14/17 00:44 - XRAY XRAY Interpreted by: Radiologist XRAY Findings: REPORT DISCUSS WITH PATIENT AND HER DAUGHTER. - EKG Rhythm: NSR ST: Ischemia (EKG NOTED.) - Diagnosis Discharge Problem: Seizure, Abnormal cardiac enzyme level Altered mental status Qualifiers: Altered mental status type: transient alteration of awareness Qualified Code(s) : R40.4 - Transient alteration of awareness - Discharge Plan Disposition: XFER OTHER Condition: Stable - Follow ups/Referrals Follow ups/Referrals: DARLINE GILLILAND [Primary Care Provider] - 3 days - Instructions
[2017-08-14 01:34] LABS: BASOPHILS % (AUTO) 0.4 % (0.2-1.0); EOSINOPHILS % (AUTO) 0.2 % (0.9-2.9); HEMATOCRIT 37.5 % (36.0-47.0); HEMOGLOBIN 12.5 g/dL (12.0-16.0); LYMPHOCYTES # (AUTO) 1.8 X10^3/uL (1.3-2.9); LYMPHOCYTES % (AUTO) 18.9 % (21.0-51.0); MEAN CORPUSCULAR HEMOGLOBIN 29.6 pg (27.0-34.0); MEAN CORPUSCULAR HGB CONC 33.4 g/dL (33.0-35.0); MEAN CORPUSCULAR VOLUME 88.6 fL (80.0-100.0); MONOCYTES # (AUTO) 0.7 x10^3/uL (0.3-0.8); MONOCYTES % (AUTO) 7.2 % (0.0-13.0); NEUTROPHILS # (AUTO) 7.1 x10^3/uL (2.2-4.8); NEUTROPHILS % (AUTO) 73.3 % (42.0-75.0); PLATELET COUNT 359 X10^3/uL (150.0-450.0); RED BLOOD COUNT 4.23 X10^6/uL (3.5-5.4); RED CELL DISTRIBUTION WIDTH 13.5 % (11.6-16.5); WHITE BLOOD COUNT 9.7 X10^3/uL (3.6-10.0)
[2017-08-14 01:52] LABS: ALANINE AMINOTRANSFERASE 23 Units/L (12-78); ALBUMIN 4.2 g/dL (3.4-5.0); ALKALINE PHOSPHATASE 92 Units/L (46-116); ASPARTATE AMINO TRANSFERASE 27 Units/L (15-37); BLOOD UREA NITROGEN 14 mg/dL (7-18); CALCIUM 8.8 mg/dL (8.5-10.1); CHLORIDE 100 mmol/L (98-107); CKMB % 2.2 % (<4); COR NA(FOR HYPERGLY) 140 mmol/L (136-145); CREATINE KINASE 49 Units/L (26-192); CREATINE KINASE MB 1.1 ng/mL (0-4.0); CREATININE 1.41 mg/dL (0.55-1.02); SODIUM 138 mmol/L (136-145); TOTAL PROTEIN 8.5 g/dL (6.4-8.2); TROPONIN I 0.19 ng/mL (0-1.5); eGFR BLACK RACES 47 (>60); eGFR NON BLACK RACES 39 (>60)
[2017-08-14 01:54] LABS: CARBON DIOXIDE 12.2 mmol/L (21-32)
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
[2017-08-14 04:16] LABS: CKMB % 2.3 % (<4); CREATINE KINASE MB 1.6 ng/mL (0-4.0); TROPONIN I 0.31 ng/mL (0-1.5)
[2017-08-14 05:02] VITALS: BP 147/82
[2017-08-14] MEDS ORDERED: ASPIRIN 81 MG CHEWTAB ONE (05:06)
--- NOTE | 2017-08-14 05:43 | RAD ---
Chest AP portable Indication altered mental status and seizure Comparison: 12/11/2016 Findings: There is no pneumothorax or effusion. There is no consolidation. Heart size is normal. Pace maker leads project as expected. Monitoring leads obscure some detail. Impression: COPD change without other acute abnormality. Reported By:
[2017-08-14] MEDS ORDERED: ASPIRIN 81 MG CHEWTAB PO SCH (06:00)
== END 2017-08-14 05:33 | disposition short-term general hospital (02) ==
LOC: ER 00:31
DX: R40.4 Transient alteration of awareness (principal); R74.8 Abnormal levels of other serum enzymes; R56.9 Unspecified convulsions; J44.9 Chronic obstructive pulmonary disease, unspecified
CPT/HCPCS: 36415; 51702; 70450; 71045; 80053; 80307; 81001; 82550; 82553; 84484; 85025; 93005; 93010; 93041; 96365; 96374; 99285; G0434; J2060

== ENCOUNTER 2017-11-02 19:51 | Inpatient (IN) ==
[2017-11-02] MEDS ORDERED: NARCAN INJ ONE (19:54)
[2017-11-02] MEDS ORDERED: NARCAN INJ IVP ONE ×2 (19:59→21:35)
--- NOTE | 2017-11-02 20:03 | DR.AMS ---
HPI - Time Seen Time seen: 19:55 - HPI Comment HPI Comment: HERE VIA EMS ON NR [facility] AND SEMI RESPONSIVE. PATIENT FALLING FREQUENTLY PAST SEVERAL DAYS. RELATIVES SHE SLEEP ALL DAY YERTERDAY AND TODAY. SHE WAS FOUND TONIGHT UNRESPONSIVE. RELATIVE CONCERN SHE MAY HAVE TAKEN MORE PAIN MED THAN SHE IS PRESCRIBE. SHE IS CONFUSE AND NOT SPEAKING CLEARLY. NO FEVER. - Complaint Cheif Complaint Doctors Comments: AMS, UNRESPONSIVE AT HOME. - Reviewed Nurses Notes Reviewed: Yes - Source History Provided: Patient, Family Member, EMS - Mode of Arrival Mode of Arrival: Stretcher - Timing Came On: Suddenly Symptoms: Worsening - Duration Duration: Constant Duration: Days - Quality Quality: Change in Behavior, Confusion - Severity Severity: Unresponsive - Context Recent: None History Of: None - Associated Signs and Symptoms Associated Signs and Symptoms: Generalized Weakness, Slurred Speech, Change in Behavior, Confusion, Decreased LOC, Unresponsiveness PMH - PMH Past Medical History: Diabetes, Hypertension Past Surgical History: Yes Surgical History: Cholecystectomy, Hysterectomy - Family History Family Medical History: Diabetes Mellitus, Cancer, [place], Hypertension - Social History Do you use any recreational Drugs:: No ROS - Review of Systems Constitutional: Weakness, Fatigue, Loss of Appetite. negative: Chills, Fever Eyes: Other (SLEEPY). negative: Eye Pain, Discharge ENTM: negative: Ear Pain, Nose Discharge, Nose Congestion, Throat Pain Respiratoy: Moist Cough, Short of Breath, Wheezing, Other (PATIENT HAVE SECREATIONS AT BACK OF HER MOUTH.). negative: Hemoptysis Cardiovascular: Palpitations. negative: Edema Gastrointestinal/Abdominal: negative: Abdominal Pain, Constipation, Diarrhea, Nausea, Vomiting Genitourinary: Other (URINARY INCONTINENCE.) Neurological: Headache, Weakness, Dizziness Musculoskeletal: Back Pain, Muscle Pain Integumentary: Change in Color, Dryness Hematologic/Lymphatic: Easy Bleeding, Easy Bruising Endocrine: No Symptoms Reported All Other Systems: Reviewed and Negative PE - General Limitations: No Limitations General Appearance: Alert - Head Head Exam: Other (OLD BRUISES ON FACE.) Head Exam Physical: Other - Eyes Eye exam: PERRL Pupils: Regular, Round: Bilateral, Reactive: Bilateral - ENT ENT Exam: Normal External Ear Exam External Ear Exam: Normal External Inspection TM/Canal Exam: Bilateral Normal Nose Exam: Normal Nose Exam Mouth Exam: Normal Inspection Throat Exam: Normal Inspection - Neck Neck Exam: Trachea Midline - Chest Chest Inspection: Symmetric Chest Wall Rise - Respiratory Respiratory Exam: Normal Lung Sounds Bilat Respiratory Exam: Bilateral Wheezing, Bilateral Rhonchi, Right Rhonchi, Upper Rhonchi, Lower Wheezing, Lower Rhonchi - Cardiovascular Cardiovascular Exam: Tachycardia - Abdominal Exam Abdominal Exam: Normal Bowel Sounds, Soft. negative: Tenderness - Extremities Extremities Exam: Edema (TRACE) - Back Back Exam: Paraspinal Tenderness - Neurological Neurological Exam: Other (SLEEPY) Patient Oriented To: negative: Person, Place, Time Speech: Other (SPEECH NOT CLEAR.) Cranial Nerve Exam: Gag reflex (XI): Normal - Psychological Psychiatric Exam: Other (SLEEPY) - Skin Skin Exam: Erythema - Vitals Vital Signs: Pulse Pulse Resp BP BP Pulse Ox 11/02/17 20:50 102 H 24 120/69 88 L 11/02/17 20:40 100 H 98/63 11/02/17 20:38 102 H 100/60 83 L 11/02/17 20:10 105 H 117/68 96 11/02/17 20:00 120 H 132/70 96 11/02/17 19:51 113 H 16 139/81 95 08/14/17 05:00 147/82 147/82 [facility] - Additional Information Obtained Additional Information Obtained From: Family - Differential Diagnosis Metabolic: Dehydration, Hypercalcemia, Hypernatremia, Hypoglycemia, Hyponatremia , Hypoxemia, Post-ictal Structural: C-spine Injury, Closed Head Injury, CVA, Mass Lesion Toxicologic: Drug Overdose Infectious: Sepsis, UTI Course - Treatment Treatment: SEE ORDERS. - Education/Counseling Education/Counseling: Patient, Family, Education Educated On: Diagnosis, Needs for Follow Up ROR - Labs Reviewed Laboratory Results Reviewed?: Yes Result Diagrams: 11/03/17 08:20 11/03/17 08:20 - XRAY XRAY Interpreted by: Radiologist XRAY Findings: REPORT DISCUSS WITH FAMILY. - EKG Rhythm: NSR (EKG NOTED) - Labs Reviewed Laboratory: WBC 10.1 X10^3/uL (3.6-10.0) H 11/02/17 19:54 RBC 4.10 X10^6/uL (3.5-5.4) 11/02/17 19:54 Hgb 12.3 g/dL (12.0-16.0) 11/02/17 19:54 Hct 36.8 % (36.0-47.0) 11/02/17 19:54 MCV 89.9 fL (80.0-100.0) 11/02/17 19:54 MCH 30.1 pg (27.0-34.0) 11/02/17 19:54 MCHC 33.5 g/dL (33.0-35.0) 11/02/17 19:54 RDW 13.7 % (11.6-16.5) 11/02/17 19:54 Plt Count 276 X10^3/uL (150.0-450.0) 11/02/17 19:54 MPV 6.7 fL (7.4-11.0) L 11/02/17 19:54 Neut % (Auto) 88.4 % (42.0-75.0) H 11/02/17 19:54 Lymph % (Auto) 5.1 % (21.0-51.0) L 11/02/17 19:54 [place] % (Auto) 6.1 % (0.0-13.0) 11/02/17 19:54 Eos % (Auto) 0.0 % (0.9-2.9) L 11/02/17 19:54 Baso % (Auto) 0.4 % (0.2-1.0) 11/02/17 19:54 Neut # (Auto) 8.9 x10^3/uL (2.2-4.8) H 11/02/17 19:54 Lymph # (Auto) 0.5 X10^3/uL (1.3-2.9) L 11/02/17 19:54 [place] # (Auto) 0.6 x10^3/uL (0.3-0.8) 11/02/17 19:54 Eos # (Auto) 0.0 x10^3/uL (0.0-0.2) 11/02/17 19:54 Baso # (Auto) 0.0 X10^3/uL (0.0-0.1) 11/02/17 19:54 Absolute Nucleated RBC 0.0 /100WBC 11/02/17 19:54 Sample Site Rbra 11/02/17 19:58 ABG pH 7.280 (7.35-7.45) L 11/02/17 19:58 ABG pCO2 62.0 mmHg (35.0-45.0) H* 11/02/17 19:58 ABG pO2 72.0 mmHg (80.0-100.0) L 11/02/17 19:58 ABG HCO3 29.1 mmol/L (22-26) H 11/02/17 19:58 ABG O2 Saturation 92.0 % (90-100) 11/02/17 19:58 ABG Base Excess 1.0 mmol/L (-2.0-2.0) 11/02/17 19:58 Roberto Test Na 11/02/17 19:58 A-a Gradient 421.0 mmHg 11/02/17 19:58 FiO2 80.000 11/02/17 19:58 Blood Gas Comments Sheila abg well-mtf 11/02/17 19:58 Sodium 136 mmol/L (136-145) 11/02/17 19:54 Corrected Sodium 138 mmol/L (136-145) 11/02/17 19:54 Potassium 5.1 mmol/L (3.5-5.1) 11/02/17 19:54 Chloride 100 mmol/L (98-107) 11/02/17 19:54 Carbon Dioxide 27.5 mmol/L (21-32) 11/02/17 19:54 BUN 18 mg/dL (7-18) 11/02/17 19:54 Creatinine 0.99 mg/dL (0.55-1.02) 11/02/17 19:54 Est GFR (MDRD) Af Amer > 60 (>60) 11/02/17 19:54 Est GFR (MDRD) Non-Af 59 (>60) 11/02/17 19:54 Glucose 167 mg/dL (65-99) H 11/02/17 19:54 Lactic Acid 1.3 mmol/L (0.4-2.0) 11/02/17 19:54 Calcium 8.5 mg/dL (8.5-10.1) 11/02/17 19:54 Corrected Calcium TNP 11/02/17 19:54 Total Bilirubin 2.20 mg/dL (0.2-1.0) H 11/02/17 19:54 AST 196 Units/L (15-37) H 11/02/17 19:54 ALT 84 Units/L (12-78) H 11/02/17 19:54 Alkaline Phosphatase 88 Units/L (46-116) 11/02/17 19:54 Creatine Kinase 3399 Units/L (26-192) H 11/02/17 19:54 CK-MB (CK-2) 26.6 ng/mL (0-4.0) H* 11/02/17 19:54 CK/CKMB % Calc 0.8 % (<4) 11/02/17 19:54 Troponin I 0.17 ng/mL (0-1.5) 11/02/17 19:54 C-Reactive Protein 56.60 mg/L (0-3.0) H 11/02/17 19:54 Total Protein 7.4 g/dL (6.4-8.2) 11/02/17 19:54 Albumin 3.5 g/dL (3.4-5.0) 11/02/17 19:54 Globulin 3.9 g/dL (2.5-4.5) 11/02/17 19:54 Albumin/Globulin Ratio 0.9 Ratio (1.1-2.1) L 11/02/17 19:54 Specimen Type Catherized urine 11/02/17 20:20 Urine Color Yellow (YELLOW) 11/02/17 20:20 Urine Appearance Clear (CLEAR) 11/02/17 20:20 Urine pH 5.0 (5.0 - 8.0) 11/02/17 20:20 Ur Specific [place] 1.020 (1.000-1.030) 11/02/17 20:20 Urine Protein 1+ (NEGATIVE) 11/02/17 20:20 Urine Glucose (UA) Negative (NEGATIVE) 11/02/17 20:20 Urine Ketones Negative (NEGATIVE) 11/02/17 20:20 Urine Occult Blood 2+ (NEGATIVE) 11/02/17 20:20 Urine Nitrite Negative (NEGATIVE) 11/02/17 20:20 Urine Bilirubin Negative (NEGATIVE) 11/02/17 20:20 Urine Urobilinogen Normal (NORMAL) 11/02/17 20:20 Ur Leukocyte Esterase Negative (NEGATIVE) 11/02/17 20:20 Urine RBC 0-2 /HPF (NONE SEEN) 11/02/17 20:20 Urine WBC 0-2 /HPF (NONE SEEN) 11/02/17 20:20 Ur Squamous Epith Cells Few /HPF (NEGATIVE) 11/02/17 20:20 Urine Bacteria Negative /HPF (NEGATIVE) 11/02/17 20:20 Ur Culture Indicated? No/not indicated 11/02/17 20:20 Urine Opiates Screen Negative (NEG=<300) 11/02/17 20:20 Urine Methadone Screen Positive (NEG=<300) A 11/02/17 20:20 Ur Barbiturates Screen Negative (NEG=<200) 11/02/17 20:20 Ur Phencyclidine Scrn Negative (NEG=<25) 11/02/17 20:20 Ur Amphetamines Screen Negative (NEG=<1000) 11/02/17 20:20 U Benzodiazepines Scrn Positive (NEG=<200) A 11/02/17 20:20 Urine Cocaine Screen Negative (NEG=<300) 11/02/17 20:20 U Marijuana (THC) Screen Negative (NEG=<50) 11/02/17 20:20 - Diagnosis Discharge Problem: Respiratory insufficiency, Bronchitis Altered mental status Qualifiers: Altered mental status type: transient alteration of awareness Qualified Code(s) : R40.4 - Transient alteration of awareness Aspiration into airway Qualifiers: Encounter type: subsequent encounter Qualified Code(s): T17.908D - Unspecified foreign body in respiratory tract, part unspecified causing other injury, subsequent encounter - Discharge Plan Disposition: ADMITTED INPATIENT Condition: Stable
[2017-11-02 20:08] LABS: ABG HCO3 29.1 mmol/L (22-26)
[2017-11-02] MEDS ORDERED: NS 1000 ML 1,000 ML ONE (20:09)
[2017-11-02] MEDS: NS 1000 ML 1,000 ML IV SCH (20:12)
[2017-11-02 20:22] LABS: BASOPHILS % (AUTO) 0.4 % (0.2-1.0); HEMATOCRIT 36.8 % (36.0-47.0); HEMOGLOBIN 12.3 g/dL (12.0-16.0); LYMPHOCYTES # (AUTO) 0.5 X10^3/uL (1.3-2.9); LYMPHOCYTES % (AUTO) 5.1 % (21.0-51.0); MEAN CORPUSCULAR HEMOGLOBIN 30.1 pg (27.0-34.0); MEAN CORPUSCULAR HGB CONC 33.5 g/dL (33.0-35.0); MEAN CORPUSCULAR VOLUME 89.9 fL (80.0-100.0); MEAN PLATELET VOLUME 6.7 fL (7.4-11.0); MONOCYTES # (AUTO) 0.6 x10^3/uL (0.3-0.8); MONOCYTES % (AUTO) 6.1 % (0.0-13.0); NEUTROPHILS # (AUTO) 8.9 x10^3/uL (2.2-4.8); NEUTROPHILS % (AUTO) 88.4 % (42.0-75.0); PLATELET COUNT 276 X10^3/uL (150.0-450.0); RED CELL DISTRIBUTION WIDTH 13.7 % (11.6-16.5); WHITE BLOOD COUNT 10.1 X10^3/uL (3.6-10.0)
[2017-11-02 20:32] LABS: BLOOD UREA NITROGEN 18 mg/dL (7-18); CALCIUM 8.5 mg/dL (8.5-10.1); CARBON DIOXIDE 27.5 mmol/L (21-32); CHLORIDE 100 mmol/L (98-107); COR NA(FOR HYPERGLY) 138 mmol/L (136-145); CREATININE 0.99 mg/dL (0.55-1.02); SODIUM 136 mmol/L (136-145); TROPONIN I 0.17 ng/mL (0-1.5); eGFR NON BLACK RACES 59 (>60)
[2017-11-02 20:38] LABS: BILIRUBIN,URINE NEGATIVE (NEGATIVE); BLOOD/HEMOGLOBIN,URINE 2+ (NEGATIVE); GLUCOSE, URINE NEGATIVE (NEGATIVE); KETONES,URINE NEGATIVE (NEGATIVE); LEUKOCYTE ESTERASE ,URINE NEGATIVE (NEGATIVE); NITRITES,URINE NEGATIVE (NEGATIVE); PROTEIN,URINE 1+ (NEGATIVE); UROBILINOGEN,URINE NORMAL (NORMAL)
--- NOTE | 2017-11-02 20:41 | RAD ---
AP chest. Indication: Unresponsive Comparison: 08/14/2017 Findings: There is subsegmental atelectasis within both lung bases. No focal airspace opacity, pleura l effusion or pneumothorax. Heart size is within normal limits with stable positioning of left chest wall pacemaker. No acute osseous abnormality. Impression: No acute cardiopulmonary abnormality or significant change from prior exam. Reported By:
--- NOTE | 2017-11-02 20:41 | CT ---
HISTORY: Unresponsive. Study: CT brain without contrast. Comparison: 08/14/2017. Technique: Multiple axial images of the brain were obtained from the skull base to the vertex without administra tion of IV contrast. Findings: No acute intraparenchymal hemorrhage or mass can be identified. [place]-white differentiation is main[place]on. No extra-axial fluid collections are seen. No alteration in the attenuation of the brain paren chyma can be identified to suggest acute or subacute ischemic change. The basilar cisterns are patent . The ventricular system is symmetric and nondilated. The extracranial structures are grossly unrem arkable. IMPRESSION: No acute intracranial process can be identified. Reported By:
[2017-11-02 20:45] LABS: APPEARANCE,URINE CLEAR (CLEAR); BACTERIA,URINE NEGATIVE /HPF (NEGATIVE); COLOR,URINE YELLOW (YELLOW); RBC,URINE 0-2 /HPF (NONE SEEN); SQUAMOUS EPITHELIAL CELL,UR FEW /HPF (NEGATIVE)
[2017-11-02 20:58] LABS: ALANINE AMINOTRANSFERASE 84 Units/L (12-78); ALBUMIN 3.5 g/dL (3.4-5.0); ALKALINE PHOSPHATASE 88 Units/L (46-116); ASPARTATE AMINO TRANSFERASE 196 Units/L (15-37); CKMB % 0.8 % (<4); CREATINE KINASE 3399 Units/L (26-192); TOTAL PROTEIN 7.4 g/dL (6.4-8.2)
[2017-11-02 21:00] LABS: CREATINE KINASE MB 26.6 ng/mL (0-4.0)
[2017-11-02 21:16] LABS: LACTIC ACID 1.3 mmol/L (0.4-2.0)
[2017-11-02] MEDS ORDERED: NS 1000 ML 1,000 ML IV ONE (21:42)
[2017-11-02 22:15] LABS: ABG BASE EXCESS 0.9 mmol/L (-2.0-2.0); ABG HCO3 28.2 mmol/L (22-26)
[2017-11-02] MEDS: ROCEPHIN 1 GRAM IV PREMIX IV SCH (23:00)
[2017-11-02] MEDS: CLEOCIN 300 MG IV PREMIX 300 MG/50 ML BAG IV SCH (23:09)
[2017-11-03] MEDS: DUONEB 0.5 MG/3 MG NEB SCH ×6 (01:19→21:40)
[2017-11-03 03:06] LABS: TROPONIN I 0.15 ng/mL (0-1.5)
[2017-11-03 03:14] LABS: CREATINE KINASE MB 19.4 ng/mL (0-4.0)
[2017-11-03 03:15] LABS: CKMB % 0.7 % (<4)
[2017-11-03] MEDS: CLEOCIN 300 MG IV PREMIX 300 MG/50 ML BAG IV SCH (05:34)
[2017-11-03] MEDS: NS 1000 ML 1,000 ML IV SCH ×3 (05:34→21:45)
[2017-11-03 08:28] LABS: BASOPHILS % (AUTO) 0.2 % (0.2-1.0); HEMATOCRIT 32.2 % (36.0-47.0); HEMOGLOBIN 11.1 g/dL (12.0-16.0); LYMPHOCYTES # (AUTO) 0.6 X10^3/uL (1.3-2.9); LYMPHOCYTES % (AUTO) 5.5 % (21.0-51.0); MEAN CORPUSCULAR HEMOGLOBIN 30.8 pg (27.0-34.0); MEAN CORPUSCULAR HGB CONC 34.5 g/dL (33.0-35.0); MEAN CORPUSCULAR VOLUME 89.5 fL (80.0-100.0); MEAN PLATELET VOLUME 6.8 fL (7.4-11.0); MONOCYTES # (AUTO) 0.8 x10^3/uL (0.3-0.8); MONOCYTES % (AUTO) 8.1 % (0.0-13.0); NEUTROPHILS # (AUTO) 8.9 x10^3/uL (2.2-4.8); NEUTROPHILS % (AUTO) 86.2 % (42.0-75.0); PLATELET COUNT 165 X10^3/uL (150.0-450.0); RED CELL DISTRIBUTION WIDTH 14.1 % (11.6-16.5); WHITE BLOOD COUNT 10.3 X10^3/uL (3.6-10.0)
[2017-11-03 08:49] LABS: ALANINE AMINOTRANSFERASE 80 Units/L (12-78); ALKALINE PHOSPHATASE 73 Units/L (46-116); ASPARTATE AMINO TRANSFERASE 150 Units/L (15-37); BLOOD UREA NITROGEN 19 mg/dL (7-18); CALCIUM 7.8 mg/dL (8.5-10.1); CARBON DIOXIDE 31.4 mmol/L (21-32); CHLORIDE 104 mmol/L (98-107); COR CA(FOR HYPOALB) 8.6 mg/dL (8.5-10.1); COR NA(FOR HYPERGLY) 138 mmol/L (136-145); CREATININE 0.81 mg/dL (0.55-1.02); MAGNESIUM 1.8 mg/dL (1.7-2.9); SODIUM 138 mmol/L (136-145); TOTAL PROTEIN 6.4 g/dL (6.4-8.2); eGFR NON BLACK RACES > 60 (>60)
[2017-11-03] MEDS ORDERED: ROCEPHIN VIAL 1 GRAM ONE (08:51)
[2017-11-03] MEDS ORDERED: NS 100 ML IV + SPIKE MINIBAG* 100 ML IV ONE (08:53)
[2017-11-03] MEDS ORDERED: ROCEPHIN VIAL 1 GRAM IM SCH (09:00)
[2017-11-03] MEDS ORDERED: ROCEPHIN VIAL 1 GRAM IV SCH (09:00)
[2017-11-03] MEDS: ROCEPHIN 1 GRAM IV PREMIX IV SCH ×3 (09:03→09:04)
[2017-11-03 09:17] LABS: TROPONIN I 0.22 ng/mL (0-1.5)
[2017-11-03 09:35] LABS: CKMB % 0.5 % (<4)
[2017-11-03 09:38] LABS: CREATINE KINASE MB 12.4 ng/mL (0-4.0)
[2017-11-04] MEDS: DUONEB 0.5 MG/3 MG NEB SCH ×5 (00:27→16:05)
[2017-11-04 05:20] LABS: BASOPHILS % (AUTO) 0.2 % (0.2-1.0); EOSINOPHILS % (AUTO) 1.1 % (0.9-2.9); HEMATOCRIT 23.9 % (36.0-47.0); HEMOGLOBIN 8.4 g/dL (12.0-16.0); LYMPHOCYTES # (AUTO) 0.7 X10^3/uL (1.3-2.9); LYMPHOCYTES % (AUTO) 15.7 % (21.0-51.0); MEAN CORPUSCULAR HEMOGLOBIN 31.5 pg (27.0-34.0); MEAN CORPUSCULAR HGB CONC 35.3 g/dL (33.0-35.0); MEAN CORPUSCULAR VOLUME 89.1 fL (80.0-100.0); MEAN PLATELET VOLUME 7.2 fL (7.4-11.0); MONOCYTES # (AUTO) 0.4 x10^3/uL (0.3-0.8); NEUTROPHILS # (AUTO) 3.5 x10^3/uL (2.2-4.8); PLATELET COUNT 120 X10^3/uL (150.0-450.0); RED BLOOD COUNT 2.68 X10^6/uL (3.5-5.4); RED CELL DISTRIBUTION WIDTH 14.2 % (11.6-16.5); WHITE BLOOD COUNT 4.6 X10^3/uL (3.6-10.0)
[2017-11-04 05:37] LABS: ALANINE AMINOTRANSFERASE 59 Units/L (12-78); ALBUMIN 2.4 g/dL (3.4-5.0); ALKALINE PHOSPHATASE 54 Units/L (46-116); ASPARTATE AMINO TRANSFERASE 97 Units/L (15-37); BLOOD UREA NITROGEN 11 mg/dL (7-18); CALCIUM 7.5 mg/dL (8.5-10.1); CARBON DIOXIDE 28.4 mmol/L (21-32); CHLORIDE 108 mmol/L (98-107); COR CA(FOR HYPOALB) 8.8 mg/dL (8.5-10.1); CREATININE 0.57 mg/dL (0.55-1.02); SODIUM 141 mmol/L (136-145); TOTAL PROTEIN 5.3 g/dL (6.4-8.2); eGFR NON BLACK RACES > 60 (>60)
[2017-11-04] MEDS: NS 1000 ML 1,000 ML IV SCH ×3 (06:04→22:15)
--- NOTE | 2017-11-04 06:46 | RAD ---
Examination: Portable AP chest History: Bronchitis Comparison reference 11/02/2017 Findings: Continued normal heart size. Essentially clear lungs. There may be a small developing infil trate in the medial right lung base. No consolidation, pulmonary edema or pleural fluid. Impression: Probably no acute findings. See above description of right lower lung. Follow-up suggeste d as appropriate. Reported By:
--- NOTE | 2017-11-04 07:10 | DR.H&P ---
H&P - History & Physical for Day of: H&P Date: 11/02/17 - Chief Complaint Chief Complaint: unresponsive - History of Present Illness History of Present Illness: is a 71 year old patient of ours who presented to the emergency room via EMS with reports of being unresponsive. On arrival to patients home by EMS, EMS reports oxygen saturation of less than 50% . Patients family reports patient has been falling frequently over the last couple of days and has been semi responsive, however, they report that patient was found unresponsive tonight. They fear that she may have taken too much pain medication. On arrival to the hospital, patient responds to painful stimuli only. She is noted with slurred speech. Medical History includes: Cataracts, Glaucoma, Seizures, Pacemaker, Hypertension, Pneumonia, COPD, Gerd, Pancreatitis , UTIs, Muscle Weakness, Rheumatoid Arthritis, DM type II, Anxiety. On arrival , vitals were 98.8, 113, 16, 80% Non-Rebreather, 139/81. Two doses of Narcan was administered and patient became more alert. On auscultation of lung kennedy patient noted with coarse wheezing and rhonchi throughout. Carter catheter inserted on arrival noted to be light perry in color with a strong odor. Patients family reports patient has been having frequent falls recently and has lost about 30 pounds this year due to decreased appetite. Labs were obtained. Abnormal Labs include the following: WBC 10.1, MPV 6.7, Neut% 88.4, Lymph% 5.1, Eos% 0.0, Neut# 8.9, Lymph# 0.5, Glucose 167, Total Bilirubin 2.20, AST 196, ALT 84, Creatine Kinase 3399, 2963, CKMB 26.6, 19.4, CRP 56.60, A/G Ratio 0.9. Toxicology: Methadone Screen Positive; Benzodiazepines Screen Positive. Urinalysis: Catherized, Protein 1+, Occult Blood 2+, RBC 0-2, WBC 0- 2. Blood Cultures x2 Pending. ABG: @1958 pH 7.280, pCO2 62.0, pO2 72.0, HCO3 29.1; @2205 pH 7.310, pCO2 56.0, pO2 58.0, HCO3 28.2, O2 Sat 87.0. EKG: Sinus Tachycardia. Hujx=820. Brain CT revealed: No acute intracranial process can be identified. Chest X-Ray revealed: No acute cardiopulmonary abnormality or significant change from prior exam. We admitted her to ICU and placed on continuous quality assurance monitor final, NIBP and pulse oximetry. Patient placed on Bi-Pap at 16/8 at 50%. She was started on IV fluids and IV antibiotics. Will follow up with labs in the morning. - Past Medical History Past Medical History: Diabetes, Hypertension - Past Surgical History Surgical History: Cholecystectomy, Hysterectomy - Family History Family Medical History: Diabetes Mellitus, Cancer, HI, Hypertension - Social History Does patient currently use any type of tobacco product: No Have you used tobacco products in the last 12 months: No Type of Tobacco Use: None Does any household member use tobacco: No Alcohol Use: None Drug Use: None - Medications Home Medications: prochlorperazine [From Compazine] Allergy (Verified 12/11/16 07:10) CONTINUE taking the following medications alprazolam 1 tab PO QID 11/03/17 [History] citalopram [Celexa] 1 tab PO DAILY 11/03/17 [History] methadone 1 tab PO TID 11/03/17 [History] - Review of Systems Constitutional: Weakness Eyes: No Symptoms Reported ENT: No Symptoms Reported Respiratory: Cough, Shortness of Breath, Wheezing Cardiovascular: No Symptoms Reported Gastrointestinal: No Symptoms Reported Musculoskeletal: No Symptoms Reported Skin: No Symptoms Reported Neurological: See HPI, Weakness, Incoordination, Change in Speech, Confusion - Physical Exam Vital Signs: Temperature 99.1 F Pulse Rate [Apical] 90 Pulse Rate 87 Respiratory Rate 21 Blood Pressure [Left Arm] 103/55 Blood Pressure 139/81 O2 Sat by Pulse Oximetry 100 Oriented: Unable to test Eyes: Normal Ear: Normal Nose: Normal Throat: Normal Respiratory: Rhonchi Throughout, Wheezes Throughout Cardiovascular: Tachycardia. negative: S3, S4, Murmur : Normal Auscultation: Bowel Sounds: Normal Palpation: Normal Tenderness: Normal Skin: Normal Musculoskeletal: Right, Left, Leg, Tender Psychiatric: Normal Mood Description: Flat Affect: Flat Speech Pattern: Inappropriate, Delayed, Slurred - Assessment/Plan (1) Respiratory insufficiency Status: Acute Plan: admit, bipap, quality assurance monitor final, iv fluids, iv antibiotics, continue to monitor (2) Altered mental status Qualifiers: Altered mental status type: transient alteration of awareness Qualified Code(s): R40.4 - Transient alteration of awareness Status: Acute (3) Bronchitis Status: Acute Plan: iv antibiotics, bipap/supplemental oxygen, continue to monitor (4) Rhabdomyolysis Qualifiers: Rhabdomyolysis type: non-traumatic Qualified Code(s): M62.82 - Rhabdomyolysis Status: Acute Plan: normal saline at 125ml/hr, continue to monitor - Allergies Allergies/Adverse Reactions: Allergies Allergy/AdvReac Type Severity Reaction Status Date / Time prochlorperazine Allergy Verified 12/11/16 07:10 [From Compazine]
[2017-11-04 08:34] LABS: TROPONIN I 0.23 ng/mL (0-1.5)
[2017-11-04] MEDS: ROCEPHIN VIAL 1 GRAM 1 G in NS 100 ML IV + SPIKE MINIBAG* 100 ML IV SCH (08:44)
[2017-11-04 08:49] LABS: CKMB % 0.3 % (<4); CREATINE KINASE MB 4.9 ng/mL (0-4.0)
[2017-11-04 10:03] VITALS: BMI 22.3
[2017-11-04] MEDS: ZOFRAN INJ 4 MG VIAL IVP PRN (20:25)
[2017-11-04 23:13] LABS: HEMATOCRIT 25.9 % (36.0-47.0); HEMOGLOBIN 8.9 g/dL (12.0-16.0)
[2017-11-05] MEDS: DUONEB 0.5 MG/3 MG NEB SCH ×5 (00:08→20:10)
[2017-11-05] MEDS ORDERED: TYLENOL 325 MG TAB PO PRN (04:10)
[2017-11-05] MEDS: NS 1000 ML 1,000 ML IV SCH ×3 (06:12→21:35)
[2017-11-05] MEDS ORDERED: AYR NASAL DROPS PRN (06:13)
[2017-11-05 07:00] LABS: BASOPHILS % (AUTO) 0.3 % (0.2-1.0); EOSINOPHILS # (AUTO) 0.1 x10^3/uL (0.0-0.2); EOSINOPHILS % (AUTO) 2.1 % (0.9-2.9); HEMATOCRIT 24.4 % (36.0-47.0); HEMOGLOBIN 8.5 g/dL (12.0-16.0); LYMPHOCYTES # (AUTO) 0.6 X10^3/uL (1.3-2.9); LYMPHOCYTES % (AUTO) 16.2 % (21.0-51.0); MEAN CORPUSCULAR HEMOGLOBIN 30.9 pg (27.0-34.0); MEAN CORPUSCULAR HGB CONC 34.7 g/dL (33.0-35.0); MEAN CORPUSCULAR VOLUME 89.2 fL (80.0-100.0); MONOCYTES # (AUTO) 0.4 x10^3/uL (0.3-0.8); MONOCYTES % (AUTO) 9.7 % (0.0-13.0); NEUTROPHILS # (AUTO) 2.9 x10^3/uL (2.2-4.8); NEUTROPHILS % (AUTO) 71.7 % (42.0-75.0); PLATELET COUNT 166 X10^3/uL (150.0-450.0); RED BLOOD COUNT 2.74 X10^6/uL (3.5-5.4); RED CELL DISTRIBUTION WIDTH 13.9 % (11.6-16.5)
--- NOTE | 2017-11-05 07:03 | RAD ---
Examination: Portable AP chest History: SOB Comparison reference 11/04/2017 Findings: Continued normal heart size. The lungs are essentially clear. There is no convincing eviden ce for infiltrate or atelectasis. No developing pleural fluid or complicating pneumothorax. Impression: No acute chest findings at this time. Reported By:
[2017-11-05 07:46] LABS: BLOOD UREA NITROGEN 2 mg/dL (7-18); CALCIUM 7.8 mg/dL (8.5-10.1); CARBON DIOXIDE 27.4 mmol/L (21-32); CHLORIDE 107 mmol/L (98-107); CREATININE 0.67 mg/dL (0.55-1.02); SODIUM 140 mmol/L (136-145); eGFR NON BLACK RACES > 60 (>60)
[2017-11-05] MEDS: ROCEPHIN VIAL 1 GRAM 1 G in NS 100 ML IV + SPIKE MINIBAG* 100 ML IV SCH (09:00)
[2017-11-05 12:14] LABS: ALANINE AMINOTRANSFERASE 58 Units/L (12-78); ALBUMIN 2.5 g/dL (3.4-5.0); ALKALINE PHOSPHATASE 60 Units/L (46-116); ASPARTATE AMINO TRANSFERASE 68 Units/L (15-37); TOTAL PROTEIN 5.6 g/dL (6.4-8.2)
[2017-11-05 12:35] LABS: CKMB % 0.2 % (<4); CREATINE KINASE MB 1.6 ng/mL (0-4.0); TROPONIN I 0.1 ng/mL (0-1.5)
[2017-11-05] MEDS ORDERED: XANAX PO PRN (17:38)
[2017-11-05] MEDS: NORCO 7.5/325 MG TAB PO PRN (17:49)
[2017-11-05] MEDS: ZESTRIL TAB 10 MG PO SCH (17:49)
[2017-11-05] MEDS ORDERED: POTASSIUM CHL 60 MEQ/NS 0.45% 500 ML IV PRN (19:41)
[2017-11-05] MEDS ORDERED: POTASSIUM CHLORIDE LIQ 20 MEQ UDC PO PRN (19:41)
[2017-11-05] MEDS ORDERED: POTASSIUM CHL 40 MEQ/NS 0.45% 500 ML IV PRN (19:41)
[2017-11-05] MEDS ORDERED: K-LYTE EFFERVESCENT PO PRN (19:41)
--- NOTE | 2017-11-05 20:37 | PCM.PROG ---
Progress Note - Progress Note for Day of Date of Exam: 11/03/17 - Subjective Subjective: is being treated for acute bronchitis, AMS, and rhabdomyolysis. Today, she is alert and oriented, lying in bed on morning rounds. Patient noted with continued shortness of breath and a non-productive cough. She also complains of weakness and bilateral lower extremity cramps. Patient remained on the Bi-Pap during the night and transitioned this morning to nasal cannula at 3L/min. Patient noted with a temperature of 100 degrees at midnight. Labs were obtained this morning. Abnormal lab values include the following: WBC 10.3, Hgb 11.1, Hct 32.2, MPV 6.8, Neut% 86.2, Lymph% 5.5, Eos% 0.0, Neut# 8.9, Lymph# 0.6, BUN 19, Glucose 120, Calcium 7.8, Total Bilirubin 1.20, AST 150, ALT 80, Creatine Kinase 2539, CKMB 12.4, Albumin 3.0, A/G ratio 0.9. Her vitals this morning are 99.0-85-14-100%-85/51. Lungs are noted with scattered wheezing this morning. Today, we will continue with IV fluids, IV antibiotics and aggressive neb treatments. Otherwise, we will follow up with AM labs and continue to monitor patient. - Past Medical Family Social History Past Med/Fam/Surg Hx: No changes since H&P Allergies: Allergies prochlorperazine [From Compazine] Allergy (Verified 12/11/16 07:10) - Review of Systems ROS: No change since H&P - Vital Signs and I&O's Vital Signs: Temperature 98.1 F Pulse Rate [Apical] 94 Pulse Rate 92 Respiratory Rate 19 Blood Pressure [Left Arm] 165/80 Blood Pressure 139/81 O2 Sat by Pulse Oximetry 100 Intake and Output: Intake & Output 11/03/17 11/04/17 11/05/17 11/06/17 11:59 11:59 11:59 11:59 Intake Total 2095 / 2095 5408 / 5408 5254 / 5254 2079 / 2079 Output Total 400 / 400 3250 / 3250 4725 / 4725 2400 / 2400 Balance 1695 / 1695 2158 / 2158 529 / 529 -320 / -320 - Physical Exam Oriented: Normal Eyes: Normal Ear: Normal Nose: Normal Throat: Normal Respiratory: Generalized, Wheezes Cardiovascular: Normal. negative: S3, S4, Murmur : Normal Auscultation: Bowel Sounds: Normal Palpation: Normal Tenderness: Normal Skin: Normal Musculoskeletal: Right, Left, Leg, Tender Psychiatric: Normal Mood Description: Flat Affect: Flat Speech Pattern: Clear, Appropriate - Laboratory and Diagnostics Result Diagrams: 11/05/17 06:33 11/05/17 06:33 Labs: 11/02/17 20:48 Blood Blood Culture - Preliminary Laboratory WBC 4.0 X10^3/uL (3.6-10.0) 11/05/17 06:33 RBC 2.74 X10^6/uL (3.5-5.4) L 11/05/17 06:33 Hgb 8.5 g/dL (12.0-16.0) L 11/05/17 06:33 Hct 24.4 % (36.0-47.0) L 11/05/17 06:33 MCV 89.2 fL (80.0-100.0) 11/05/17 06:33 MCH 30.9 pg (27.0-34.0) 11/05/17 06:33 MCHC 34.7 g/dL (33.0-35.0) 11/05/17 06:33 RDW 13.9 % (11.6-16.5) 11/05/17 06:33 Plt Count 166 X10^3/uL (150.0-450.0) 11/05/17 06:33 MPV 7.0 fL (7.4-11.0) L 11/05/17 06:33 Neut % (Auto) 71.7 % (42.0-75.0) 11/05/17 06:33 Lymph % (Auto) 16.2 % (21.0-51.0) L 11/05/17 06:33 [place] % (Auto) 9.7 % (0.0-13.0) 11/05/17 06:33 Eos % (Auto) 2.1 % (0.9-2.9) 11/05/17 06:33 Baso % (Auto) 0.3 % (0.2-1.0) 11/05/17 06:33 Neut # (Auto) 2.9 x10^3/uL (2.2-4.8) 11/05/17 06:33 Lymph # (Auto) 0.6 X10^3/uL (1.3-2.9) L 11/05/17 06:33 [place] # (Auto) 0.4 x10^3/uL (0.3-0.8) 11/05/17 06:33 Eos # (Auto) 0.1 x10^3/uL (0.0-0.2) 11/05/17 06:33 Baso # (Auto) 0.0 X10^3/uL (0.0-0.1) 11/05/17 06:33 Absolute Nucleated RBC 0.1 /100WBC 11/05/17 06:33 Sample Site Rbra 11/02/17 22:05 ABG pH 7.310 (7.35-7.45) L 11/02/17 22:05 ABG pCO2 56.0 mmHg (35.0-45.0) H* 11/02/17 22:05 ABG pO2 58.0 mmHg (80.0-100.0) L 11/02/17 22:05 ABG HCO3 28.2 mmol/L (22-26) H 11/02/17 22:05 ABG O2 Saturation 87.0 % (90-100) L 11/02/17 22:05 ABG Base Excess 0.9 mmol/L (-2.0-2.0) 11/02/17 22:05 Roberto Test Na 11/02/17 22:05 A-a Gradient 229.0 mmHg 11/02/17 22:05 FiO2 50.000 11/02/17 22:05 Blood Gas Comments Sheila abg well-mtf 11/02/17 22:05 Sodium 140 mmol/L (136-145) 11/05/17 06:33 Corrected Sodium TNP 11/05/17 06:33 Potassium 3.5 mmol/L (3.5-5.1) 11/05/17 06:33 Chloride 107 mmol/L (98-107) 11/05/17 06:33 Carbon Dioxide 27.4 mmol/L (21-32) 11/05/17 06:33 BUN 2 mg/dL (7-18) L 11/05/17 06:33 Creatinine 0.67 mg/dL (0.55-1.02) 11/05/17 06:33 Est GFR (MDRD) Af Amer > 60 (>60) 11/05/17 06:33 Est GFR (MDRD) Non-Af > 60 (>60) 11/05/17 06:33 Glucose 93 mg/dL (65-99) 11/05/17 06:33 Lactic Acid 1.3 mmol/L (0.4-2.0) 11/02/17 19:54 Calcium 7.8 mg/dL (8.5-10.1) L 11/05/17 06:33 Corrected Calcium 9.0 mg/dL (8.5-10.1) 11/05/17 06:33 Magnesium 1.6 mg/dL (1.7-2.9) L 11/05/17 06:33 Total Bilirubin 0.50 mg/dL (0.2-1.0) 11/05/17 06:33 AST 68 Units/L (15-37) H 11/05/17 06:33 ALT 58 Units/L (12-78) 11/05/17 06:33 Alkaline Phosphatase 60 Units/L (46-116) 11/05/17 06:33 Creatine Kinase 843 Units/L (26-192) H 11/05/17 06:33 CK-MB (CK-2) 1.6 ng/mL (0-4.0) 11/05/17 06:33 CK/CKMB % Calc 0.2 % (<4) 11/05/17 06:33 Troponin I 0.10 ng/mL (0-1.5) 11/05/17 06:33 C-Reactive Protein 56.60 mg/L (0-3.0) H 11/02/17 19:54 Total Protein 5.6 g/dL (6.4-8.2) L 11/05/17 06:33 Albumin 2.5 g/dL (3.4-5.0) L 11/05/17 06:33 Globulin 3.1 g/dL (2.5-4.5) 11/05/17 06:33 Albumin/Globulin Ratio 0.8 Ratio (1.1-2.1) L 11/05/17 06:33 Specimen Type Catherized urine 11/02/17 20:20 Urine Color Yellow (YELLOW) 11/02/17 20:20 Urine Appearance Clear (CLEAR) 11/02/17 20:20 Urine pH 5.0 (5.0 - 8.0) 11/02/17 20:20 Ur Specific [place] 1.020 (1.000-1.030) 11/02/17 20:20 Urine Protein 1+ (NEGATIVE) 11/02/17 20:20 Urine Glucose (UA) Negative (NEGATIVE) 11/02/17 20:20 Urine Ketones Negative (NEGATIVE) 11/02/17 20:20 Urine Occult Blood 2+ (NEGATIVE) 11/02/17 20:20 Urine Nitrite Negative (NEGATIVE) 11/02/17 20:20 Urine Bilirubin Negative (NEGATIVE) 11/02/17 20:20 Urine Urobilinogen Normal (NORMAL) 11/02/17 20:20 Ur Leukocyte Esterase Negative (NEGATIVE) 11/02/17 20:20 Urine RBC 0-2 /HPF (NONE SEEN) 11/02/17 20:20 Urine WBC 0-2 /HPF (NONE SEEN) 11/02/17 20:20 Ur Squamous Epith Cells Few /HPF (NEGATIVE) 11/02/17 20:20 Urine Bacteria Negative /HPF (NEGATIVE) 11/02/17 20:20 Ur Culture Indicated? 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
[2017-11-05] MEDS: MAGNESIUM SULFATE 1 GRAM/100 mL PREMIX 1 GM/100 ML BAG IV PRN ×2 (21:35→23:19)
[2017-11-05] MEDS: K-RIDER 10 MEQ/NS 100 ML 10 MEQ/100 ML BAG IV PRN ×2 (21:40→23:31)
[2017-11-05] MEDS ORDERED: BACITRACIN ZINC ONE (21:47)
--- NOTE | 2017-11-05 22:06 | PCM.PROG ---
Progress Note - Progress Note for Day of Date of Exam: 11/05/17 - Subjective Subjective: 71YO WF ADMITTED FOR ACUTE BRONCHITIS AND RHABDO. IS RESTING QUIETLY IN BED. AROUSES EASILY. REMAINS IN ICU SETTING. STATES SHE IS FEELLING BETTER. DENIES SOB, CP OR MUSCLE CRAMPS. DOES ASK TO HAVE METHADONE CHANGED TO NORCO. STATES SHE DOESN'T LIKE THE WAY SHE FEELS WITH IT. DENIES ANY OTHER COMPLAINTS. - Past Medical Family Social History Past Med/Fam/Surg Hx: No changes since H&P Allergies: Allergies prochlorperazine [From Compazine] Allergy (Verified 12/11/16 07:10) - Review of Systems ROS: No change since H&P - Vital Signs and I&O's Vital Signs: Temperature 98.1 F Pulse Rate [Apical] 94 Pulse Rate 92 Respiratory Rate 19 Blood Pressure [Left Arm] 165/80 Blood Pressure 139/81 O2 Sat by Pulse Oximetry 100 Intake and Output: Intake & Output 11/03/17 11/04/17 11/05/17 11/06/17 11:59 11:59 11:59 11:59 Intake Total 5 / 5 5408 / 5408 5254 / 5254 2079 / 2079 Output Total 400 / 400 3250 / 3250 4725 / 4725 2400 / 2400 Balance 1695 / 1695 2158 / 2158 529 / 529 -320 / -320 - Physical Exam Oriented: Normal Eyes: Normal Ear: Normal Nose: Normal Throat: Normal Respiratory: Generalized, Diminished Cardiovascular: Normal. negative: S3, S4, Murmur : Normal Auscultation: Bowel Sounds: Normal Palpation: Normal Tenderness: Normal Skin: Normal Musculoskeletal: Right, Left, Leg, Tender Psychiatric: Normal Mood Description: Calm Affect: Flat Speech Pattern: Clear, Appropriate - Laboratory and Diagnostics Result Diagrams: 11/05/17 06:33 11/05/17 06:33 Labs: 11/02/17 20:48 Blood Blood Culture - Preliminary Laboratory WBC 4.0 X10^3/uL (3.6-10.0) 11/05/17 06:33 RBC 2.74 X10^6/uL (3.5-5.4) L 11/05/17 06:33 Hgb 8.5 g/dL (12.0-16.0) L 11/05/17 06:33 Hct 24.4 % (36.0-47.0) L 11/05/17 06:33 MCV 89.2 fL (80.0-100.0) 11/05/17 06:33 MCH 30.9 pg (27.0-34.0) 11/05/17 06:33 MCHC 34.7 g/dL (33.0-35.0) 11/05/17 06:33 RDW 13.9 % (11.6-16.5) 11/05/17 06:33 Plt Count 166 X10^3/uL (150.0-450.0) 11/05/17 06:33 MPV 7.0 fL (7.4-11.0) L 11/05/17 06:33 Neut % (Auto) 71.7 % (42.0-75.0) 11/05/17 06:33 Lymph % (Auto) 16.2 % (21.0-51.0) L 11/05/17 06:33 [place] % (Auto) 9.7 % (0.0-13.0) 11/05/17 06:33 Eos % (Auto) 2.1 % (0.9-2.9) 11/05/17 06:33 Baso % (Auto) 0.3 % (0.2-1.0) 11/05/17 06:33 Neut # (Auto) 2.9 x10^3/uL (2.2-4.8) 11/05/17 06:33 Lymph # (Auto) 0.6 X10^3/uL (1.3-2.9) L 11/05/17 06:33 [place] # (Auto) 0.4 x10^3/uL (0.3-0.8) 11/05/17 06:33 Eos # (Auto) 0.1 x10^3/uL (0.0-0.2) 11/05/17 06:33 Baso # (Auto) 0.0 X10^3/uL (0.0-0.1) 11/05/17 06:33 Absolute Nucleated RBC 0.1 /100WBC 11/05/17 06:33 Sample Site Rbra 11/02/17 22:05 ABG pH 7.310 (7.35-7.45) L 11/02/17 22:05 ABG pCO2 56.0 mmHg (35.0-45.0) H* 11/02/17 22:05 ABG pO2 58.0 mmHg (80.0-100.0) L 11/02/17 22:05 ABG HCO3 28.2 mmol/L (22-26) H 11/02/17 22:05 ABG O2 Saturation 87.0 % (90-100) L 11/02/17 22:05 ABG Base Excess 0.9 mmol/L (-2.0-2.0) 11/02/17 22:05 Roberto Test Na 11/02/17 22:05 A-a Gradient 229.0 mmHg 11/02/17 22:05 FiO2 50.000 11/02/17 22:05 Blood Gas Comments Sheila abg well-mtf 11/02/17 22:05 Sodium 140 mmol/L (136-145) 11/05/17 06:33 Corrected Sodium TNP 11/05/17 06:33 Potassium 3.5 mmol/L (3.5-5.1) 11/05/17 06:33 Chloride 107 mmol/L (98-107) 11/05/17 06:33 Carbon Dioxide 27.4 mmol/L (21-32) 11/05/17 06:33 BUN 2 mg/dL (7-18) L 11/05/17 06:33 Creatinine 0.67 mg/dL (0.55-1.02) 11/05/17 06:33 Est GFR (MDRD) Af Amer > 60 (>60) 11/05/17 06:33 Est GFR (MDRD) Non-Af > 60 (>60) 11/05/17 06:33 Glucose 93 mg/dL (65-99) 11/05/17 06:33 Lactic Acid 1.3 mmol/L (0.4-2.0) 11/02/17 19:54 Calcium 7.8 mg/dL (8.5-10.1) L 11/05/17 06:33 Corrected Calcium 9.0 mg/dL (8.5-10.1) 11/05/17 06:33 Magnesium 1.6 mg/dL (1.7-2.9) L 11/05/17 06:33 Total Bilirubin 0.50 mg/dL (0.2-1.0) 11/05/17 06:33 AST 68 Units/L (15-37) H 11/05/17 06:33 ALT 58 Units/L (12-78) 11/05/17 06:33 Alkaline Phosphatase 60 Units/L (46-116) 11/05/17 06:33 Creatine Kinase 843 Units/L (26-192) H 11/05/17 06:33 CK-MB (CK-2) 1.6 ng/mL (0-4.0) 11/05/17 06:33 CK/CKMB % Calc 0.2 % (<4) 11/05/17 06:33 Troponin I 0.10 ng/mL (0-1.5) 11/05/17 06:33 C-Reactive Protein 56.60 mg/L (0-3.0) H 11/02/17 19:54 Total Protein 5.6 g/dL (6.4-8.2) L 11/05/17 06:33 Albumin 2.5 g/dL (3.4-5.0) L 11/05/17 06:33 Globulin 3.1 g/dL (2.5-4.5) 11/05/17 06:33 Albumin/Globulin Ratio 0.8 Ratio (1.1-2.1) L 11/05/17 06:33 Specimen Type Catherized urine 11/02/17 20:20 Urine Color Yellow (YELLOW) 11/02/17 20:20 Urine Appearance Clear (CLEAR) 11/02/17 20:20 Urine pH 5.0 (5.0 - 8.0) 11/02/17 20:20 Ur Specific [place] 1.020 (1.000-1.030) 11/02/17 20:20 Urine Protein 1+ (NEGATIVE) 11/02/17 20:20 Urine Glucose (UA) Negative (NEGATIVE) 11/02/17 20:20 Urine Ketones Negative (NEGATIVE) 11/02/17 20:20 Urine Occult Blood 2+ (NEGATIVE) 11/02/17 20:20 Urine Nitrite Negative (NEGATIVE) 11/02/17 20:20 Urine Bilirubin Negative (NEGATIVE) 11/02/17 20:20 Urine Urobilinogen Normal (NORMAL) 11/02/17 20:20 Ur Leukocyte Esterase Negative (NEGATIVE) 11/02/17 20:20 Urine RBC 0-2 /HPF (NONE SEEN) 11/02/17 20:20 Urine WBC 0-2 /HPF (NONE SEEN) 11/02/17 20:20 Ur Squamous Epith Cells Few /HPF (NEGATIVE) 11/02/17 20:20 Urine Bacteria Negative /HPF (NEGATIVE) 11/02/17 20:20 Ur Culture Indicated? No/not indicated 11/02/17 20:20 Urine Opiates Screen Negative (NEG=<300) 11/02/17 20:20 Urine Methadone Screen Positive (NEG=<300) A 11/02/17 20:20 Ur Barbiturates Screen Negative (NEG=<200) 11/02/17 20:20 Ur Phencyclidine Scrn Negative (NEG=<25) 11/02/17 20:20 Ur Amphetamines Screen Negative (NEG=<1000) 11/02/17 20:20 U Benzodiazepines Scrn Positive (NEG=<200) A 11/02/17 20:20 Urine Cocaine Screen Negative (NEG=<300) 11/02/17 20:20 U Marijuana (THC) Screen Negative (NEG=<50) 11/02/17 20:20 Radiology Reviewed: Yes EKG Reviewed: Yes - Plan (1) Anemia Status: Acute Plan: MONITOR CBC (2) Altered mental status Status: Resolved Qualifiers: Altered mental status type: transient alteration of awareness Qualified Code(s): R40.4 - Transient alteration of awareness (3) Respiratory insufficiency Status: Acute Plan: supplemental oxygen, case monitor, iv fluids, iv antibiotics, continue to monitor (4) Bronchitis Status: Acute Plan: iv antibiotics, bipap/supplemental oxygen, continue to monitor (5) Rhabdomyolysis Status: Acute Qualifiers: Rhabdomyolysis type: non-traumatic Qualified Code(s): M62.82 - Rhabdomyolysis Plan: normal saline at 75ml/hr, continue to monitor
[2017-11-06] MEDS: DUONEB 0.5 MG/3 MG NEB SCH ×4 (00:54→11:47)
[2017-11-06] MEDS: NORCO 7.5/325 MG TAB PO PRN ×2 (02:20→12:02)
[2017-11-06] MEDS: ZOFRAN INJ 4 MG VIAL IVP PRN (04:32)
[2017-11-06] MEDS: NS 1000 ML 1,000 ML IV SCH (04:32)
[2017-11-06 05:15] LABS: BASOPHILS % (AUTO) 0.3 % (0.2-1.0); EOSINOPHILS # (AUTO) 0.1 x10^3/uL (0.0-0.2); EOSINOPHILS % (AUTO) 1.9 % (0.9-2.9); HEMATOCRIT 24.3 % (36.0-47.0); HEMOGLOBIN 8.6 g/dL (12.0-16.0); LYMPHOCYTES # (AUTO) 0.6 X10^3/uL (1.3-2.9); LYMPHOCYTES % (AUTO) 13.4 % (21.0-51.0); MEAN CORPUSCULAR HEMOGLOBIN 31.1 pg (27.0-34.0); MEAN CORPUSCULAR HGB CONC 35.2 g/dL (33.0-35.0); MEAN CORPUSCULAR VOLUME 88.6 fL (80.0-100.0); MEAN PLATELET VOLUME 6.8 fL (7.4-11.0); MONOCYTES # (AUTO) 0.4 x10^3/uL (0.3-0.8); MONOCYTES % (AUTO) 8.3 % (0.0-13.0); NEUTROPHILS # (AUTO) 3.6 x10^3/uL (2.2-4.8); NEUTROPHILS % (AUTO) 76.1 % (42.0-75.0); PLATELET COUNT 202 X10^3/uL (150.0-450.0); RED BLOOD COUNT 2.75 X10^6/uL (3.5-5.4); RED CELL DISTRIBUTION WIDTH 14.3 % (11.6-16.5); WHITE BLOOD COUNT 4.8 X10^3/uL (3.6-10.0)
[2017-11-06 05:48] LABS: ALANINE AMINOTRANSFERASE 47 Units/L (12-78); ALBUMIN 2.4 g/dL (3.4-5.0); ALKALINE PHOSPHATASE 60 Units/L (46-116); ASPARTATE AMINO TRANSFERASE 44 Units/L (15-37); BLOOD UREA NITROGEN 7 mg/dL (7-18); CALCIUM 7.6 mg/dL (8.5-10.1); CARBON DIOXIDE 25.4 mmol/L (21-32); CHLORIDE 108 mmol/L (98-107); CKMB % 0.3 % (<4); COR CA(FOR HYPOALB) 8.9 mg/dL (8.5-10.1); CREATINE KINASE 381 Units/L (26-192); CREATININE 0.66 mg/dL (0.55-1.02); SODIUM 142 mmol/L (136-145); TOTAL PROTEIN 5.5 g/dL (6.4-8.2); TROPONIN I 0.12 ng/mL (0-1.5); eGFR NON BLACK RACES > 60 (>60)
--- NOTE | 2017-11-06 07:11 | RAD ---
HISTORY: Shortness of breath Study: Chest AP portable Comparison: 11/05/2016, 11/04/2016 Findings: The patient is rotated to the left. There is a pacemaker present on the left. The heart is within nor mal limits in size. There has been interval development since the prior examination of a right lower lobe infiltrate most consistent with pneumonia. The remainder of the lung kennedy are clear. No pleura l effusions are identified. The bony thorax is unremarkable. IMPRESSION: Interval development since the prior examination of right lower lobe infiltrate most consistent with pneumonia. Reported By:
[2017-11-06] MEDS: ZESTRIL TAB 10 MG PO SCH (08:56)
[2017-11-06] MEDS: ROCEPHIN VIAL 1 GRAM 1 G in NS 100 ML IV + SPIKE MINIBAG* 100 ML IV SCH (08:57)
[2017-11-06] MEDS ORDERED: CELEXA PO SCH (09:00)
[2017-11-06 13:06] VITALS: BP 159/83
--- NOTE | 2017-11-21 20:37 | DR.CARTERD ---
- Discharge Summary for: Discharge Summary for Date of:: 11/06/17 - Admission Date Date of Admission: 11/02/17 - Admission Diagnoses Admission Diagnosis: (1) Unresponsive (2) Respiratory distress (3) Hypoxia (4) Rhabdomyolysis (5) Altered mental status (6) Bronchitis - Discharge Date Discharge Date: 11/06/17 - Discharge Diagnoses Discharge Diagnosis: (1) Unresponsive (2) Respiratory distress (3) Hypoxia (4) Rhabdomyolysis (5) Altered mental status (6) Bronchitis - Hospital Course Hospital Course: Day one, Ms. Sanders is a 71 year old patient of ours who presented to the emergency room via EMS with reports of being unresponsive. On arrival to patients home by EMS, EMS reports oxygen saturation of less than 50%. Patient s family reported patient had been falling frequently over the last couple of days and had been semi responsive; however, they reported that patient was found unresponsive earlier this night. They feared that she may have taken too much pain medication. On arrival to the hospital, patient responded to painful stimuli only. She was noted with slurred speech. Medical History included: Cataracts, Glaucoma, Seizures, Pacemaker, Hypertension, Pneumonia, COPD, Gerd, Pancreatitis, UTIs, Muscle Weakness, Rheumatoid Arthritis, DM type II, Anxiety. On arrival, vitals were 98.8, 113, 16, 80% Non-Rebreather, 139/81. Two doses of Narcan were administered and patient became more alert. On auscultation of lung kennedy patient noted with coarse wheezing and rhonchi throughout. Carter catheter inserted on arrival noted to be light [place] in color with a strong odor. Patients family reported patient had been having frequent falls recently and had lost about 30 pounds this year due to decreased appetite. Labs were obtained. Abnormal Labs included the following: WBC 10.1, MPV 6.7, Neut% 88.4, Lymph% 5.1, Eos% 0.0, Neut# 8.9, Lymph# 0.5, Glucose 167, Total Bilirubin 2.20, AST 196, ALT 84, Creatine Kinase 3399, 2963, CKMB 26.6, 19.4, CRP 56.60, A/G Ratio 0.9. Toxicology: Methadone Screen Positive; Benzodiazepines Screen Positive. Urinalysis: Catherized, Protein 1+, Occult Blood 2+, RBC 0-2, WBC 0-2. Blood Cultures x2 Pending. ABG: @1958 pH 7.280, pCO2 62.0, pO2 72.0, HCO3 29.1; @2205 pH 7.310, pCO2 56.0, pO2 58.0, HCO3 28.2, O2 Sat 87.0. EKG: Sinus Tachycardia, islg=143. Brain CT revealed: No acute intracranial process can be identified. Chest X-Ray revealed: No acute cardiopulmonary abnormality or significant change from prior exam. We admitted her to ICU and placed on continuous potline monitor, NIBP, and pulse oximetry. Patient placed on Bi-Pap at 16/8 at 50%. She was started on IV fluids and IV antibiotics. Day two, Patient noted with continued shortness of breath and a non-productive cough. She was alert and oriented. She also complained of weakness and bilateral lower extremity cramps. Patient remained on the Bi-Pap during the night and transitioned earlier this day to nasal cannula at 3L/min. Patient noted with a temperature of 100 degrees at midnight. Labs were obtained. Abnormal lab values included the following: WBC 10.3, Hgb 11.1, Hct 32.2, MPV 6.8, Neut% 86.2, Lymph% 5.5, Eos% 0.0, Neut# 8.9, Lymph# 0.6, BUN 19, Glucose 120, Calcium 7.8, Total Bilirubin 1.20, AST 150, ALT 80, Creatine Kinase 2539, CKMB 12.4, Albumin 3.0, A/G ratio 0.9. Her vitals were 99.0-85-14-100%-85/51. Lungs were noted with scattered wheezing. We continued with IV fluids, IV antibiotics, and aggressive neb treatments. Day three and four, Dr. Mercer covered: Patient continued treatment for Rhabdomyolysis and acute bronchitis. Patient aroused easily. She remained in ICU for close monitoring. She stated that she was feeling better. She denied shortness of breath, chest pain, or muscle cramps. She denied any other complaints. Treatment was continued. Day five, Patient was doing well. No acute distress was noted. Vital signs stable. Labs wnl. Patient reported she was feeling much better. She denied shortness of breath or chest pain. We planned for discharge. Instructions for medications and follow up were discussed with patient and family, both voiced understanding. Patient discharged home in stable condition with family. - Discharge Medications Discharge Medications: Home Medication List alprazolam 1 tab PO QID 11/03/17 [History] citalopram [Celexa] 1 tab PO DAILY 11/03/17 [History] methadone 1 tab PO TID 11/03/17 [History] dextromethorphan-guaifenesin [Mucinex DM] 1 tab PO Q12H PRN #20 tab 11/06/17 [Rx ] ipratropium-albuterol 1 ea NEB TID #50 ml 11/06/17 [Rx] levofloxacin [Levaquin] 750 mg PO DAILY #10 tab 11/06/17 [Rx] Prescriptions: dextromethorphan-guaifenesin [Mucinex DM] Viraj Wilkins ipratropium-albuterol Viraj Wilkins levofloxacin [Levaquin] Viraj Wilkins amoxicillin-pot clavulanate [Augmentin] 1 tab PO BID #10 tab 11/10/17 - Discharge Disposition Discharge Disposition: Patient is to follow up in our office in one week.
== END 2017-11-06 12:50 | disposition home or self-care (01) | DRG 202 ==
LOC: ER 19:51 → ICU 22:10
PROVIDERS: ADMIT Internal Medicine; ATTEND Internal Medicine
DX: J20.9 Acute bronchitis, unspecified; M62.82 Rhabdomyolysis; R06.89 Other abnormalities of breathing; E83.51 Hypocalcemia; R47.81 Slurred speech; R26.81 Unsteadiness on feet; E11.8 Type 2 diabetes mellitus with unspecified complications; R82.99 Other abnormal findings in urine; R06.02 Shortness of breath; Z91.81 History of falling; R41.82 Altered mental status, unspecified; I10 Essential (primary) hypertension
CPT/HCPCS: 36415; 36600; 51702; 70450; 71010; 71045; 80053; 80307; 81001; 82550; 82553; 82803; 83605; 83735; 84484; 85014; 85018; 85025; 86140; 87040; 93005; 93041; 94640; 94660; 96365; 96367; 96374; 96375; 97163; 97167; 99231; 99284; 99285; A4218; A4222; A4618; A7030; S0077; G0434; J0696; J2310; J2405; J3475; J3480; J3490; J7030; J7050; J7620; J8499

== ENCOUNTER 2018-04-07 20:01 | Observation (INO) ==
--- NOTE | 2018-04-07 20:43 | DR.SEIZA ---
HPI - Time Seen Time seen: 20:42 - Complaints Chief Complaint Doctors Comments: Patient dropped off by family members stating she had a seizure yesterday around 4pm but refused to go with EMS. Family states she has not been acting right and has been confused. patient denies history of seizures and states she has been having chest pain and headache. She denies any recent trauma. Family members not with patient. Family member states she was drinking coffee yesterday and she threw the cup in the air and started shaking all over with her hands drawn up. States patient urinated on her self during the episode. Patient denies seizure activity. Family states she has had several episodes but she is not on any medicine for seizures. States she has been taking out of her head and did not know her after the seizure episode. - Reviewed Nurses Notes Reviewed: Yes - Source History Provided: Patient, Family Member - Mode of Arrival Mode of Arrival: Wheelchair - Duration Since Onset: Intermittent Duration: Days - Quality Quality: Shaking - Location Location: Generalized - Context Prior to Seizure:: Normal During Seizure: None Immediately After Seizure: Confusion History of:: None Medication Compliance: Yes - Associated Signs and Symptoms Associated Signs and Symptoms:: Headache - Severity Subjective or Unknown: Unknown PMH - PMH Past Medical History: Hypertension, Diabetes Past Surgical History: Yes Surgical History: Cholecystectomy, Hysterectomy - Family History Family Medical History: Diabetes Mellitus, Cancer, ID, Hypertension - Social History Do you use any recreational Drugs:: No ROS - Review of Systems Constitutional: No Symptoms Reported Eyes: No Symptoms Reported ENTM: No Symptoms Reported Respiratoy: No Symptoms Reported, Non-Productive Cough Cardiovascular: No Symptoms Reported, Chest Pain Gastrointestinal/Abdominal: No Symptoms Reported, Abdominal Pain Genitourinary: No Symptoms Reported Neurological: No Symptoms Reported, Headache Musculoskeletal: No Symptoms Reported Integumentary: No Symptoms Reported Hematologic/Lymphatic: No Symptoms Reported Endocrine: No Symptoms Reported Psychiatric: No Symptoms Reported PE - General Limitations: No Limitations General Appearance: Alert, In No Apparent Distress - Head Head Exam: Normal Inspection, Atraumatic, Normocephalic Head Exam Physical: negative: Laceration, Abrasion, Contusion, Hematoma, Raccoon Eyes, Amado's Sign, Tenderness of Temporal Artery, CSF Rhinorrhea, CSF Otorrhea, Other - Eyes Eye exam: Normal Appearance, PERRL, EOMI. negative: Scleral Icterus, Conjunctival Injection, Nystagmus, Miosis, Mydrasis, Periorbital Swelling, Periorbital Tenderness, Other Eyelids: Normal Inspection: Bilateral Pupils: Regular, Round: Bilateral Sclera/Conjunctival: Normal Inspection: Bilateral Anterior Chamber: Normal Inspection: Bilateral - ENT ENT Exam: Normal Exam, Normal Oropharynx, Normal External Ear Exam, Mucous Mem branes Moist, TM's Normal Bilaterally Mouth Exam: Normal Inspection - Neck Neck Exam: Normal Inspection, Full ROM, Trachea Midline - Chest Chest Inspection: Normal Inspection, Symmetric Chest Wall Rise - Respiratory Respiratory Exam: Normal Lung Sounds Bilat Respiratory Exam: Bilateral Clear to Auscultation - Cardiovascular Cardiovascular Exam: Regular Rate, Normal Rhythm, Normal Heart Sounds - Abdominal Exam Abdominal Exam: Normal Inspection, Normal Bowel Sounds, Soft Abdominal Tenderness: Epigastrium, Mild - Extremities Extremities Exam: Normal Inspection, Full ROM, Normal Capillary Refill. negative: Tenderness, Edema, Joint Swelling, Calf Tenderness, Other - Back Back Exam: Normal Inspection, Full ROM - Neurologic Neurological Exam: Alert, Oriented X3, CN II-XII Intact, Reflexes Normal Patient Oriented To: Person, Place, Time Speech: Fluid Speech Cranial Nerve Exam: EOM Function (II, III, IV, ): Normal, Facial Sensation (V): Normal, Facial Palsy (VII): Normal, Spinal Accessory Function (XI): Normal, Tongue Deviation: Normal Motor Strength - LUE: 5/5 Motor Strength - RUE: 5/5 Motor Strength - LLE: 5/5 Motor Strength - RLE: 5/5 Upper Motor Neuron Exam: Babinski Sign: Normal Sensory Exam Upper Extremity: Light Touch: Normal DTR: achilles tendon (L): 2+, achilles tendon (R): 2+, bicep (L): 2+, bicep (R): 2+ - Psychiatric Psychiatric Exam: Normal Affect, Normal Mood - Skin Skin Exam: Warm, Dry, Intact, Normal Color - Vital Signs Vitals: Temperature 98.6 F Pulse Rate [Left] 80 Pulse Rate 85 Respiratory Rate 18 Blood Pressure [Left Arm] 162/84 Blood Pressure 171/84 O2 Sat by Pulse Oximetry 99 Course - Reevaluation 1st: Improved - Consultation Called: 23:17 Call Returned: 23:17 (Dr. Wilkins to admit) - Education/Counseling Education/Counseling: Patient, Family Educated On: Treatment, Diagnosis, Needs for Follow Up ROR - Labs Reviewed Laboratory Results Reviewed?: Yes (All labs and x-ray results reviewed and discussed with patient) Result Diagrams: 04/07/18 21:07 04/07/18 21:07 - XRAY XRAY Interpreted by: Radiologist (CT head: No acute intracranial pathology.) XRAY Findings: CXR: no acute cardiopulmonary changes noted - Labs Reviewed Laboratory: WBC 12.3 X10^3/uL (3.6-10.0) H 04/07/18 21:07 RBC 3.78 X10^6/uL (3.5-5.4) 04/07/18 21:07 Hgb 11.1 g/dL (12.0-16.0) L 04/07/18 21:07 Hct 32.4 % (36.0-47.0) L 04/07/18 21:07 MCV 85.7 fL (80.0-100.0) 04/07/18 21:07 MCH 29.3 pg (27.0-34.0) 04/07/18 21:07 MCHC 34.2 g/dL (33.0-35.0) 04/07/18 21:07 RDW 15.5 % (11.6-16.5) 04/07/18 21:07 Plt Count 335 X10^3/uL (150.0-450.0) 04/07/18 21:07 Plt Count Comment Adequate (ADEQUATE) 04/07/18 21:07 MPV 6.8 fL (7.4-11.0) L 04/07/18 21:07 Neut % (Auto) 78.6 % (42.0-75.0) H 04/07/18 21:07 Lymph % (Auto) 12.9 % (21.0-51.0) L 04/07/18 21:07 [place] % (Auto) 7.2 % (0.0-13.0) 04/07/18 21:07 Eos % (Auto) 0.1 % (0.9-2.9) L 04/07/18 21:07 Baso % (Auto) 1.2 % (0.2-1.0) H 04/07/18 21:07 Neut # (Auto) 9.7 x10^3/uL (2.2-4.8) H 04/07/18 21:07 Lymph # (Auto) 1.6 X10^3/uL (1.3-2.9) 04/07/18 21:07 [place] # (Auto) 0.9 x10^3/uL (0.3-0.8) H 04/07/18 21:07 Eos # (Auto) 0.0 x10^3/uL (0.0-0.2) 04/07/18 21:07 Baso # (Auto) 0.1 X10^3/uL (0.0-0.1) 04/07/18 21:07 Absolute Nucleated RBC 0.0 /100WBC 04/07/18 21:07 Plt Morphology Comment Normal (NORMAL) 04/07/18 21:07 RBC Morphology Normal (NORMAL) 04/07/18 21:07 INR Target Range - 04/07/18 21:07 INR 1.02 (0.8-1.3) 04/07/18 21:07 APTT 20.0 SECONDS (22.9-36.5) L 04/07/18 21:07 PTT Comment - 04/07/18 21:07 Sodium 139 mmol/L (136-145) 04/07/18 21:07 Corrected Sodium 139 mmol/L (136-145) 04/07/18 21:07 Potassium 3.2 mmol/L (3.5-5.1) L 04/07/18 21:07 Chloride 102 mmol/L (98-107) 04/07/18 21:07 Carbon Dioxide 20.5 mmol/L (21-32) L 04/07/18 21:07 BUN 14 mg/dL (7-18) 04/07/18 21:07 Creatinine 0.67 mg/dL (0.55-1.02) 04/07/18 21:07 Est GFR (MDRD) Af Amer > 60 (>60) 04/07/18 21:07 Est GFR (MDRD) Non-Af > 60 (>60) 04/07/18 21:07 Glucose 120 mg/dL (65-99) H 04/07/18 21:07 Calcium 8.4 mg/dL (8.5-10.1) L 04/07/18 21:07 Corrected Calcium TNP 04/07/18 21:07 Magnesium 1.9 mg/dL (1.7-2.9) 04/07/18 21:07 Total Bilirubin 1.10 mg/dL (0.2-1.0) H 04/07/18 21:07 AST 18 Units/L (15-37) 04/07/18 21:07 ALT 23 Units/L (12-78) 04/07/18 21:07 Alkaline Phosphatase 77 Units/L (46-116) 04/07/18 21:07 Creatine Kinase 83 Units/L (26-192) 04/07/18 21:07 CK-MB (CK-2) 1.1 ng/mL (0-4.0) 04/07/18 21:07 CK/CKMB % Calc 1.3 % (<4) 04/07/18 21:07 Troponin I 0.14 ng/mL (0-1.5) 04/07/18 21:07 Total Protein 7.5 g/dL (6.4-8.2) 04/07/18 21:07 Albumin 3.9 g/dL (3.4-5.0) 04/07/18 21:07 Globulin 3.6 g/dL (2.5-4.5) 04/07/18 21:07 Albumin/Globulin Ratio 1.1 Ratio (1.1-2.1) 04/07/18 21:07 - Diagnosis Discharge Problem: Altered mental status, Seizure disorder, secondary, Essential hypertension, Hypokalemia, Hiatal hernia, Chest pain, Seizure disorder - Discharge Plan Disposition: ADMITTED INPATIENT Condition: Stable - Follow ups/Referrals Follow ups/Referrals: Viraj Wilkins [Primary Care Provider] - 3 days - Instructions
[2018-04-07 21:23] LABS: BASOPHILS # (AUTO) 0.1 X10^3/uL (0.0-0.1); BASOPHILS % (AUTO) 1.2 % (0.2-1.0); EOSINOPHILS % (AUTO) 0.1 % (0.9-2.9); HEMATOCRIT 32.4 % (36.0-47.0); HEMOGLOBIN 11.1 g/dL (12.0-16.0); LYMPHOCYTES # (AUTO) 1.6 X10^3/uL (1.3-2.9); LYMPHOCYTES % (AUTO) 12.9 % (21.0-51.0); MEAN CORPUSCULAR HEMOGLOBIN 29.3 pg (27.0-34.0); MEAN CORPUSCULAR HGB CONC 34.2 g/dL (33.0-35.0); MEAN CORPUSCULAR VOLUME 85.7 fL (80.0-100.0); MEAN PLATELET VOLUME 6.8 fL (7.4-11.0); MONOCYTES # (AUTO) 0.9 x10^3/uL (0.3-0.8); MONOCYTES % (AUTO) 7.2 % (0.0-13.0); NEUTROPHILS # (AUTO) 9.7 x10^3/uL (2.2-4.8); NEUTROPHILS % (AUTO) 78.6 % (42.0-75.0); PLATELET COUNT 335 X10^3/uL (150.0-450.0); RED BLOOD COUNT 3.78 X10^6/uL (3.5-5.4); RED CELL DISTRIBUTION WIDTH 15.5 % (11.6-16.5); WHITE BLOOD COUNT 12.3 X10^3/uL (3.6-10.0)
[2018-04-07] MEDS: NS 1000 ML 1,000 ML IV SCH (21:25)
--- NOTE | 2018-04-07 21:31 | CT ---
HISTORY: Seizure and fall yesterday. Study: CT brain without contrast Comparison: CT head dated March 21, 2018. Technique: Multiple axial images of the brain were obtained from the skull base to the vertex without administration of IV contrast. Dose reduction techniques including Automated Exposure Control (AEC) and adjustment of mA and kV were utilized. Findings: Age-related cortical atrophy and chronic small vessel ischemic changes. No acute intraparenchymal hemorrhage or mass can be identified. No extra-axial fluid collections are seen. No alteration in the attenuation of the brain parenchyma can be identified to suggest acute or subacute ischemic change. The ventricular system is symmetric and nondilated. The extracranial structures are grossly unremarkable. IMPRESSION: No obvious acute intracranial pathology. If clinically concerned for acute ischemia/infarction MRI brain is more sensitive. Reported By:
[2018-04-07 21:34] LABS: BLOOD UREA NITROGEN 14 mg/dL (7-18); CALCIUM 8.4 mg/dL (8.5-10.1); CARBON DIOXIDE 20.5 mmol/L (21-32); CHLORIDE 102 mmol/L (98-107); COR NA(FOR HYPERGLY) 139 mmol/L (136-145); CREATININE 0.67 mg/dL (0.55-1.02); SODIUM 139 mmol/L (136-145); TROPONIN I 0.14 ng/mL (0-1.5); eGFR NON BLACK RACES > 60 (>60)
[2018-04-07 21:38] LABS: ALANINE AMINOTRANSFERASE 23 Units/L (12-78); ALBUMIN 3.9 g/dL (3.4-5.0); ALKALINE PHOSPHATASE 77 Units/L (46-116); ASPARTATE AMINO TRANSFERASE 18 Units/L (15-37); CKMB % 1.3 % (<4); CREATINE KINASE 83 Units/L (26-192); CREATINE KINASE MB 1.1 ng/mL (0-4.0); MAGNESIUM 1.9 mg/dL (1.7-2.9); TOTAL PROTEIN 7.5 g/dL (6.4-8.2)
--- NOTE | 2018-04-07 21:38 | RAD ---
HISTORY: Seizure and fall yesterday. Study: Portable chest. Comparison: Chest x-ray dated March 21, 2018. Findings: The trachea is midline. The cardiac silhouette is at the upper limits of normal. Stable appearance of a multi lead left chest cardiac pacemaker. Large hiatal hernia appears unchanged given technique. No obvious focal consolidation, pleural effusion, or pneumothorax. The bony thorax is unremarkable. IMPRESSION: No acute cardiopulmonary disease. Reported By:
[2018-04-07 21:49] LABS: PLATELET MORPHOLOGY COMMENT NORMAL (NORMAL)
[2018-04-07] MEDS ORDERED: K-LYTE EFFERVESCENT PO STA (21:59)
[2018-04-07] MEDS ORDERED: K-LYTE EFFERVESCENT ONE (22:25)
[2018-04-08 03:45] LABS: CHOL/HDL RATIO 3.1 (0.0-5.0); CKMB % 1.9 % (<4); CREATINE KINASE MB 1.5 ng/mL (0-4.0)
[2018-04-08 03:59] LABS: TROPONIN I 0.13 ng/mL (0-1.5)
[2018-04-08 06:19] LABS: BASOPHILS # (AUTO) 0.1 X10^3/uL (0.0-0.1); BASOPHILS % (AUTO) 1.1 % (0.2-1.0); EOSINOPHILS % (AUTO) 0.4 % (0.9-2.9); HEMATOCRIT 30.8 % (36.0-47.0); HEMOGLOBIN 10.7 g/dL (12.0-16.0); LYMPHOCYTES # (AUTO) 1.6 X10^3/uL (1.3-2.9); LYMPHOCYTES % (AUTO) 16.1 % (21.0-51.0); MEAN CORPUSCULAR HGB CONC 34.6 g/dL (33.0-35.0); MEAN CORPUSCULAR VOLUME 86.7 fL (80.0-100.0); MEAN PLATELET VOLUME 7.3 fL (7.4-11.0); MONOCYTES # (AUTO) 0.7 x10^3/uL (0.3-0.8); MONOCYTES % (AUTO) 6.9 % (0.0-13.0); NEUTROPHILS # (AUTO) 7.4 x10^3/uL (2.2-4.8); NEUTROPHILS % (AUTO) 75.5 % (42.0-75.0); PLATELET COUNT 250 X10^3/uL (150.0-450.0); RED BLOOD COUNT 3.55 X10^6/uL (3.5-5.4); RED CELL DISTRIBUTION WIDTH 15.6 % (11.6-16.5)
[2018-04-08 06:46] LABS: ALANINE AMINOTRANSFERASE 21 Units/L (12-78); ALBUMIN 3.6 g/dL (3.4-5.0); ALKALINE PHOSPHATASE 73 Units/L (46-116); ASPARTATE AMINO TRANSFERASE 18 Units/L (15-37); BLOOD UREA NITROGEN 13 mg/dL (7-18); CALCIUM 8.2 mg/dL (8.5-10.1); CARBON DIOXIDE 21.1 mmol/L (21-32); CHLORIDE 103 mmol/L (98-107); COR NA(FOR HYPERGLY) 138 mmol/L (136-145); CREATININE 0.64 mg/dL (0.55-1.02); SODIUM 138 mmol/L (136-145); WHITE BLOOD COUNT 9.8 X10^3/uL (3.6-10.0); eGFR NON BLACK RACES > 60 (>60)
[2018-04-08 06:47] LABS: GIANT PLATELET RARE; PLATELET MORPHOLOGY COMMENT ABNORMAL (NORMAL)
[2018-04-08] MEDS ORDERED: K-DUR TAB 20 MEQ PO PRN (09:22)
[2018-04-08] MEDS ORDERED: MICRO K EXTEN CAP 10 MEQ PO PRN (09:22)
[2018-04-08] MEDS ORDERED: K-RIDER 10 MEQ/NS 100 ML 10 MEQ/100 ML BAG IV PRN (09:22)
[2018-04-08] MEDS ORDERED: KLOR-CON PO PRN (09:22)
[2018-04-08] MEDS ORDERED: POTASSIUM CHL 60 MEQ/NS 0.45% 500 ML IV PRN (09:22)
[2018-04-08] MEDS ORDERED: POTASSIUM CHL 40 MEQ/NS 0.45% 500 ML IV PRN (09:22)
[2018-04-08] MEDS ORDERED: POTASSIUM CHLORIDE LIQ 20 MEQ UDC PO PRN (09:22)
[2018-04-08] MEDS: PROTONIX INJ 40 MG VIAL IVP SCH (09:27)
[2018-04-08 09:37] LABS: CKMB % 2.4 % (<4); CREATINE KINASE MB 2.1 ng/mL (0-4.0); TROPONIN I 0.13 ng/mL (0-1.5)
[2018-04-08] MEDS ORDERED: KLOR-CON PO ONE (10:07)
[2018-04-08] MEDS: NS 1000 ML 1,000 ML IV SCH ×2 (11:21→20:10)
[2018-04-08] MEDS ORDERED: CELEXA ONE (16:28)
[2018-04-08] MEDS ORDERED: METHADONE HCL PO ONE (16:29)
[2018-04-08] MEDS: METHADONE HCL PO SCH ×2 (16:36→21:36)
[2018-04-08] MEDS: CELEXA PO SCH (16:38)
[2018-04-08] MEDS: XANAX PO SCH ×2 (17:55→21:35)
[2018-04-08] MEDS: DEPAKOTE D.R. TAB PO SCH (21:35)
[2018-04-09] MEDS ORDERED: APRESOLINE TAB 10 MG PO ONE ×2 (00:30→23:30)
[2018-04-09] MEDS ORDERED: APRESOLINE TAB 10 MG ONE (01:07)
[2018-04-09] MEDS: NS 1000 ML 1,000 ML IV SCH ×4 (01:17→22:10)
[2018-04-09 05:26] LABS: BASOPHILS % (AUTO) 0.3 % (0.2-1.0); EOSINOPHILS # (AUTO) 0.1 x10^3/uL (0.0-0.2); EOSINOPHILS % (AUTO) 1.1 % (0.9-2.9); HEMATOCRIT 29.7 % (36.0-47.0); HEMOGLOBIN 10.5 g/dL (12.0-16.0); LYMPHOCYTES # (AUTO) 1.7 X10^3/uL (1.3-2.9); LYMPHOCYTES % (AUTO) 15.9 % (21.0-51.0); MEAN CORPUSCULAR HEMOGLOBIN 30.6 pg (27.0-34.0); MEAN CORPUSCULAR HGB CONC 35.3 g/dL (33.0-35.0); MEAN CORPUSCULAR VOLUME 86.9 fL (80.0-100.0); MEAN PLATELET VOLUME 6.8 fL (7.4-11.0); MONOCYTES # (AUTO) 0.6 x10^3/uL (0.3-0.8); MONOCYTES % (AUTO) 5.6 % (0.0-13.0); NEUTROPHILS # (AUTO) 8.3 x10^3/uL (2.2-4.8); NEUTROPHILS % (AUTO) 77.1 % (42.0-75.0); PLATELET COUNT 244 X10^3/uL (150.0-450.0); RED BLOOD COUNT 3.41 X10^6/uL (3.5-5.4); RED CELL DISTRIBUTION WIDTH 15.1 % (11.6-16.5); WHITE BLOOD COUNT 10.8 X10^3/uL (3.6-10.0)
[2018-04-09 05:34] LABS: ALANINE AMINOTRANSFERASE 20 Units/L (12-78); ALBUMIN 3.4 g/dL (3.4-5.0); ALKALINE PHOSPHATASE 66 Units/L (46-116); ASPARTATE AMINO TRANSFERASE 17 Units/L (15-37); BLOOD UREA NITROGEN 12 mg/dL (7-18); CALCIUM 7.7 mg/dL (8.5-10.1); CARBON DIOXIDE 20.4 mmol/L (21-32); CHLORIDE 107 mmol/L (98-107); CREATININE 0.74 mg/dL (0.55-1.02); SODIUM 140 mmol/L (136-145); TOTAL PROTEIN 6.7 g/dL (6.4-8.2); eGFR NON BLACK RACES > 60 (>60)
[2018-04-09] MEDS: METHADONE HCL PO SCH ×3 (05:58→21:18)
[2018-04-09] MEDS: CELEXA PO SCH (08:23)
[2018-04-09] MEDS: PROTONIX INJ 40 MG VIAL IVP SCH (08:24)
[2018-04-09] MEDS: XANAX PO SCH ×4 (08:24→21:17)
--- NOTE | 2018-04-09 10:55 | DR.H&P ---
H&P - History & Physical for Day of: H&P Date: 04/07/18 - Chief Complaint Chief Complaint: CONFUSION, SEIZURE ACTIVITY - History of Present Illness History of Present Illness: IS A 72 YEAR OLD PATIENT OF OURS WHO PRESENTED TO THE EMERGENCY ROOM WITH FAMILY REPORTING ALTERED MENTAL STATUS AND SEIZURE LIKE ACTIVITY. PATIENT DENIED HISTORY OF SEIZURES, BUT REPORTS HAVING CHEST PAIN AND HEADACHE. FAMILY REPORTS THAT PATIENT BECAME INCONTINENT AFTER SEIZURE ACTIVITY. ON ARRIVAL, VITALS WERE 98.6-85-18-98%-171/84. LABS WERE OBTAINED. ABNORMAL LAB VALUES INCLUDE THE FOLLOWING: WBC 12.3, HGB 11.1, HCT 32.4, POTASSIUM 3.2, CARBON DIOXIDE 20.5, GLUCOSE 120, CALCIUM 8.4, TOTAL BILI 1.10. CARDIAC ENZYMES WITHIN NORMAL LIMITS. A CHEST XRAY WAS OBTAINED AND REVEALED: No acute cardiopulmonary disease. BRAIN CT OBTAINED AND REVEALED: No obvious acute intracranial pathology. If clinically concerned for acute ischemia/infarction MRI brain is more sensitive. EKG REVEALED: SINUS RHYTHM WITH HR 73. SHE WAS ADMITTED TO THE HOSPITAL FOR FURTHER EVAULATION AND TREATMENT OF ALTERED MENTAL STATUS AND SEIZURE ACTIVITY. SHE WAS STARTED ON NORMAL SALINE AT 75ML/HR AND HOME MEDICATIONS WERE RESUMED. WE PLAN TO FOLLOW UP WITH AM LABS AND CONTINUE TO MONITOR. 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 Surgery, Hysterectomy, Ortho Surgery - Family History Family Medical History: Diabetes Mellitus, Cancer, MS - Social History Does patient currently use any type of tobacco product: No Have you used tobacco products in the last 12 months: No Type of Tobacco Use: None Does any household member use tobacco: No Alcohol Use: None Drug Use: None - Medications Home Medications: prochlorperazine [From Compazine] Allergy (Verified 04/07/18 21:01) CONTINUE taking the following medications alprazolam 1 mg PO QID 04/08/18 [History] citalopram 20 mg PO DAILY 04/08/18 [History] methadone 10 mg PO TID 04/08/18 [History] potassium chloride [Klor-Con 10] 10 meq PO DAILY 04/08/18 [History] sertraline [Zoloft] 25 mg PO DAILY 04/08/18 [History] - Review of Systems Constitutional: Weakness Eyes: No Symptoms Reported ENT: No Symptoms Reported Respiratory: No Symptoms Reported Cardiovascular: Chest Pain Gastrointestinal: No Symptoms Reported Genitourinary: No Symptoms Reported Musculoskeletal: No Symptoms Reported Skin: No Symptoms Reported Neurological: See HPI, Weakness, Confusion, Seizures - Physical Exam Vital Signs: Temperature 98.3 F Pulse Rate [Left] 64 Pulse Rate 85 Respiratory Rate 14 Blood Pressure [Right Arm] 135/68 Blood Pressure [Left Arm] 152/84 Blood Pressure 171/84 O2 Sat by Pulse Oximetry 93 Oriented: Not Oriented Eyes: Normal Ear: Normal Nose: Normal Throat: Normal Respiratory: Diminished Throughout Cardiovascular: Normal. 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
[2018-04-09] MEDS ORDERED: ZOFRAN INJ 4 MG VIAL IVP PRN (12:00)
[2018-04-09] MEDS: DEPAKOTE D.R. TAB PO SCH (21:22)
--- NOTE | 2018-04-09 21:23 | PCM.PROG ---
Progress Note - Progress Note for Day of Date of Exam: 04/08/18 - Subjective Subjective: WAS ADMITTED FOR SEIZURE ACTIVITY AND ALTERED MENTAL STATUS. TODAY, SHE IS ALERT AND ORIENTED, LYING IN BED ON MORNING ROUNDS. SHE IS NOTED WITH COMPLAINTS OF GENERALIZED WEAKNESS TODAY. ON EXAMINATION, HEART IS REGULAR IN RATE AND RHYTHM. BILATERAL LUNGS ARE NOTED WITH DIMINISHED LUNG SOUNDS THROUGHOUT. ABDOMEN IS ROUND, SOFT, AND NON-TENDER WITH NORMAL BOWEL SOUNDS NOTED IN ALL QUADRANTS. HER VITALS THIS MORNING ARE 99.1-83-29-97%-158/96. LABS WERE OBTAINED. ABNORMAL LAB VALUES INCLUDE THE FOLLOWING: HGB 10.7, HCT 30.8, POTASSIUM 3.3, GLUCOSE 116, CALCIUM 8.2, TOTAL BILI 1.30. CARDIAC ENZYMES WITHIN NORMAL LIMITS. TODAY, WE WILL START DEPAKOTE 250MG PO HS. OTHERWISE, WE WILL CONTINUE WITH CURRENT PLAN OF CARE. WE WILL FOLLOW UP WITH AM LABS AND CONTINUE TO MONITOR. - Past Medical Family Social History Past Med/Fam/Surg Hx: No changes since H&P Allergies: Allergies prochlorperazine [From Compazine] Allergy (Verified 04/07/18 21:01) - Review of Systems ROS: No change since H&P - Vital Signs and I&O's Vital Signs: Temperature 98.4 F Pulse Rate [Left] 73 Pulse Rate 85 Respiratory Rate 17 Blood Pressure [Right Arm] 145/82 Blood Pressure [Left Arm] 152/84 Blood Pressure 171/84 O2 Sat by Pulse Oximetry 96 Intake and Output: Intake & Output 04/07/18 04/08/18 04/09/18 04/10/18 11:59 11:59 11:59 11:59 Intake Total 442 / 442 3406 / 3406 1267 / 1267 Output Total 800 / 800 Balance 442 / 442 2606 / 2606 1267 / 1267 - Physical Exam Oriented: Normal Eyes: Normal Ear: Normal Nose: Normal Throat: Normal Respiratory: Generalized, Diminished Cardiovascular: Normal. negative: S3, S4 : Normal Auscultation: Bowel Sounds: Normal Palpation: Normal Tenderness: Normal Skin: Normal Musculoskeletal: Normal Psychiatric: Normal Mood Description: Calm Affect: Normal Speech Pattern: Clear, Appropriate - Laboratory and Diagnostics Result Diagrams: 04/09/18 04:51 04/09/18 08:42 Labs: Laboratory WBC 10.8 X10^3/uL (3.6-10.0) H 04/09/18 04:51 RBC 3.41 X10^6/uL (3.5-5.4) L 04/09/18 04:51 Hgb 10.5 g/dL (12.0-16.0) L 04/09/18 04:51 Hct 29.7 % (36.0-47.0) L 04/09/18 04:51 MCV 86.9 fL (80.0-100.0) 04/09/18 04:51 MCH 30.6 pg (27.0-34.0) 04/09/18 04:51 MCHC 35.3 g/dL (33.0-35.0) H 04/09/18 04:51 RDW 15.1 % (11.6-16.5) 04/09/18 04:51 Plt Count 244 X10^3/uL (150.0-450.0) 04/09/18 04:51 Plt Count Comment Adequate (ADEQUATE) 04/08/18 05:46 MPV 6.8 fL (7.4-11.0) L 04/09/18 04:51 Neut % (Auto) 77.1 % (42.0-75.0) H 04/09/18 04:51 Lymph % (Auto) 15.9 % (21.0-51.0) L 04/09/18 04:51 Miner % (Auto) 5.6 % (0.0-13.0) 04/09/18 04:51 Eos % (Auto) 1.1 % (0.9-2.9) 04/09/18 04:51 Baso % (Auto) 0.3 % (0.2-1.0) 04/09/18 04:51 Neut # (Auto) 8.3 x10^3/uL (2.2-4.8) H 04/09/18 04:51 Lymph # (Auto) 1.7 X10^3/uL (1.3-2.9) 04/09/18 04:51 Miner # (Auto) 0.6 x10^3/uL (0.3-0.8) 04/09/18 04:51 Eos # (Auto) 0.1 x10^3/uL (0.0-0.2) 04/09/18 04:51 Baso # (Auto) 0.0 X10^3/uL (0.0-0.1) 04/09/18 04:51 Absolute Nucleated RBC 0.0 /100WBC 04/09/18 04:51 Giant Platelets Rare 04/08/18 05:46 Plt Morphology Comment Abnormal (NORMAL) A 04/08/18 05:46 RBC Morphology Normal (NORMAL) 04/08/18 05:46 INR Target Range - 04/07/18 21:07 INR 1.02 (0.8-1.3) 04/07/18 21:07 APTT 20.0 SECONDS (22.9-36.5) L 04/07/18 21:07 PTT Comment - 04/07/18 21:07 Sodium 140 mmol/L (136-145) 04/09/18 04:51 Corrected Sodium TNP 04/09/18 04:51 Potassium 4.0 mmol/L (3.5-5.1) 04/09/18 08:42 Chloride 107 mmol/L (98-107) 04/09/18 04:51 Carbon Dioxide 20.4 mmol/L (21-32) L 04/09/18 04:51 BUN 12 mg/dL (7-18) 04/09/18 04:51 Creatinine 0.74 mg/dL (0.55-1.02) 04/09/18 04:51 Est GFR (MDRD) Af Amer > 60 (>60) 04/09/18 04:51 Est GFR (MDRD) Non-Af > 60 (>60) 04/09/18 04:51 Glucose 100 mg/dL (65-99) H 04/09/18 04:51 Calcium 7.7 mg/dL (8.5-10.1) L 04/09/18 04:51 Corrected Calcium TNP 04/09/18 04:51 Magnesium 1.8 mg/dL (1.7-2.9) 04/09/18 04:51 Total Bilirubin 0.70 mg/dL (0.2-1.0) 04/09/18 04:51 AST 17 Units/L (15-37) 04/09/18 04:51 ALT 20 Units/L (12-78) 04/09/18 04:51 Alkaline Phosphatase 66 Units/L (46-116) 04/09/18 04:51 Creatine Kinase 86 Units/L (26-192) 04/08/18 09:00 CK-MB (CK-2) 2.1 ng/mL (0-4.0) 04/08/18 09:00 CK/CKMB % Calc 2.4 % (<4) 04/08/18 09:00 Troponin I 0.13 ng/mL (0-1.5) 04/08/18 09:00 Total Protein 6.7 g/dL (6.4-8.2) 04/09/18 04:51 Albumin 3.4 g/dL (3.4-5.0) 04/09/18 04:51 Globulin 3.3 g/dL (2.5-4.5) 04/09/18 04:51 Albumin/Globulin Ratio 1.0 Ratio (1.1-2.1) L 04/09/18 04:51 Triglycerides 70 mg/dL (0-150) 04/08/18 03:12 Cholesterol 154 mg/dL (0-200) 04/08/18 03:12 LDL Cholesterol, Calc 91 mg/dL (0-100) 04/08/18 03:12 HDL Cholesterol 49 mg/dL (40-60) 04/08/18 03:12 Cholesterol/HDL Ratio 3.1 (0.0-5.0) 04/08/18 03:12 - Plan (1) Seizure disorder Status: Acute Plan: DEPAKOTE 250MG PO HS, 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
[2018-04-10] MEDS: METHADONE HCL PO SCH (05:40)
[2018-04-10 06:20] LABS: BASOPHILS % (AUTO) 0.4 % (0.2-1.0); EOSINOPHILS # (AUTO) 0.2 x10^3/uL (0.0-0.2); EOSINOPHILS % (AUTO) 2.3 % (0.9-2.9); HEMATOCRIT 28.5 % (36.0-47.0); HEMOGLOBIN 9.9 g/dL (12.0-16.0); LYMPHOCYTES # (AUTO) 1.6 X10^3/uL (1.3-2.9); LYMPHOCYTES % (AUTO) 21.5 % (21.0-51.0); MEAN CORPUSCULAR HEMOGLOBIN 30.6 pg (27.0-34.0); MEAN CORPUSCULAR HGB CONC 34.6 g/dL (33.0-35.0); MEAN CORPUSCULAR VOLUME 88.3 fL (80.0-100.0); MEAN PLATELET VOLUME 6.9 fL (7.4-11.0); MONOCYTES # (AUTO) 0.6 x10^3/uL (0.3-0.8); MONOCYTES % (AUTO) 7.5 % (0.0-13.0); NEUTROPHILS # (AUTO) 5.1 x10^3/uL (2.2-4.8); NEUTROPHILS % (AUTO) 68.3 % (42.0-75.0); PLATELET COUNT 213 X10^3/uL (150.0-450.0); RED BLOOD COUNT 3.23 X10^6/uL (3.5-5.4); RED CELL DISTRIBUTION WIDTH 15.4 % (11.6-16.5); WHITE BLOOD COUNT 7.5 X10^3/uL (3.6-10.0)
[2018-04-10 06:38] LABS: ALANINE AMINOTRANSFERASE 19 Units/L (12-78); ALBUMIN 3.1 g/dL (3.4-5.0); ALKALINE PHOSPHATASE 63 Units/L (46-116); ASPARTATE AMINO TRANSFERASE 15 Units/L (15-37); BLOOD UREA NITROGEN 10 mg/dL (7-18); CALCIUM 7.7 mg/dL (8.5-10.1); CHLORIDE 107 mmol/L (98-107); COR CA(FOR HYPOALB) 8.4 mg/dL (8.5-10.1); SODIUM 140 mmol/L (136-145); TOTAL PROTEIN 6.1 g/dL (6.4-8.2); eGFR NON BLACK RACES > 60 (>60)
[2018-04-10] MEDS: NS 1000 ML 1,000 ML IV SCH (07:04)
[2018-04-10] MEDS: XANAX PO SCH (08:17)
[2018-04-10] MEDS: PROTONIX INJ 40 MG VIAL IVP SCH (08:17)
[2018-04-10] MEDS: CELEXA PO SCH (08:17)
[2018-04-10 10:15] VITALS: BMI 20.1
[2018-04-10 14:33] VITALS: BP 113/57
--- NOTE | 2018-04-10 21:20 | PCM.PROG ---
Progress Note - Progress Note for Day of Date of Exam: 04/09/18 - Subjective Subjective: WAS ADMITTED FOR SEIZURE ACTIVITY AND ALTERED MENTAL STATUS. TODAY, SHE IS ALERT AND ORIENTED, LYING IN BED ON MORNING ROUNDS. SHE CONTINUES WITH COMPLAINTS OF GENERALIZED WEAKNESS TODAY. ON EXAMINATION, HEART IS REGULAR IN RATE AND RHYTHM. BILATERAL LUNGS ARE NOTED WITH DIMINISHED LUNG SOUNDS THROUGHOUT. ABDOMEN IS ROUND, SOFT, AND NON-TENDER WITH NORMAL BOWEL SOUNDS NOTED IN ALL QUADRANTS. HER VITALS THIS MORNING ARE 98.3-64-14-93%-135/68. LABS WERE OBTAINED. ABNORMAL LAB VALUES INCLUDE THE FOLLOWING: WBC 10.8, RBC 3.41, HGB 10.5, HCT 29.7, POTASSIUM 3.3, CARBON DIOXIDE 20.4, GLUCOSE 100, CALCIUM 7.7. TODAY, WE WILL CONTINUE WITH CURRENT PLAN OF CARE AND REPLACE HER POTASSIUM PER THE PROTOCOL. OTHERWISE, WE WILL FOLLOW UP WITH AM LABS AND CONTINUE TO MONITOR. - Past Medical Family Social History Past Med/Fam/Surg Hx: No changes since H&P Allergies: Allergies prochlorperazine [From Compazine] Allergy (Verified 04/07/18 21:01) - Review of Systems ROS: No change since H&P - Vital Signs and I&O's Vital Signs: Temperature 99.3 F Pulse Rate [Left] 76 Pulse Rate 85 Respiratory Rate 11 Blood Pressure [Right Arm] 113/57 Blood Pressure [Left Arm] 152/84 Blood Pressure 171/84 O2 Sat by Pulse Oximetry 95 Intake and Output: Intake & Output 04/08/18 04/09/18 04/10/18 04/11/18 11:59 11:59 11:59 11:59 Intake Total 442 / 442 3406 / 3406 2082 / 2082 Output Total 800 / 800 500 / 500 Balance 442 / 442 2606 / 2606 1582 / 1582 - Physical Exam Oriented: Normal Eyes: Normal Ear: Normal Nose: Normal Throat: Normal Respiratory: Generalized, Diminished Cardiovascular: Normal. negative: S3, S4 : Normal Auscultation: Bowel Sounds: Normal Tenderness: Normal Skin: Normal Musculoskeletal: Normal Psychiatric: Normal Mood Description: Calm Affect: Normal Speech Pattern: Clear, Appropriate - Laboratory and Diagnostics Result Diagrams: 04/10/18 05:19 04/10/18 05:19 Labs: Laboratory WBC 7.5 X10^3/uL (3.6-10.0) 04/10/18 05:19 RBC 3.23 X10^6/uL (3.5-5.4) L 04/10/18 05:19 Hgb 9.9 g/dL (12.0-16.0) L 04/10/18 05:19 Hct 28.5 % (36.0-47.0) L 04/10/18 05:19 MCV 88.3 fL (80.0-100.0) 04/10/18 05:19 MCH 30.6 pg (27.0-34.0) 04/10/18 05:19 MCHC 34.6 g/dL (33.0-35.0) 04/10/18 05:19 RDW 15.4 % (11.6-16.5) 04/10/18 05:19 Plt Count 213 X10^3/uL (150.0-450.0) 04/10/18 05:19 Plt Count Comment Adequate (ADEQUATE) 04/08/18 05:46 MPV 6.9 fL (7.4-11.0) L 04/10/18 05:19 Neut % (Auto) 68.3 % (42.0-75.0) 04/10/18 05:19 Lymph % (Auto) 21.5 % (21.0-51.0) 04/10/18 05:19 Burnet % (Auto) 7.5 % (0.0-13.0) 04/10/18 05:19 Eos % (Auto) 2.3 % (0.9-2.9) 04/10/18 05:19 Baso % (Auto) 0.4 % (0.2-1.0) 04/10/18 05:19 Neut # (Auto) 5.1 x10^3/uL (2.2-4.8) H 04/10/18 05:19 Lymph # (Auto) 1.6 X10^3/uL (1.3-2.9) 04/10/18 05:19 Burnet # (Auto) 0.6 x10^3/uL (0.3-0.8) 04/10/18 05:19 Eos # (Auto) 0.2 x10^3/uL (0.0-0.2) 04/10/18 05:19 Baso # (Auto) 0.0 X10^3/uL (0.0-0.1) 04/10/18 05:19 Absolute Nucleated RBC 0.0 /100WBC 04/10/18 05:19 Giant Platelets Rare 04/08/18 05:46 Plt Morphology Comment Abnormal (NORMAL) A 04/08/18 05:46 RBC Morphology Normal (NORMAL) 04/08/18 05:46 INR Target Range - 04/07/18 21:07 INR 1.02 (0.8-1.3) 04/07/18 21:07 APTT 20.0 SECONDS (22.9-36.5) L 04/07/18 21:07 PTT Comment - 04/07/18 21:07 Sodium 140 mmol/L (136-145) 04/10/18 05:19 Corrected Sodium TNP 04/10/18 05:19 Potassium 3.9 mmol/L (3.5-5.1) 04/10/18 05:19 Chloride 107 mmol/L (98-107) 04/10/18 05:19 Carbon Dioxide 24.0 mmol/L (21-32) 04/10/18 05:19 BUN 10 mg/dL (7-18) 04/10/18 05:19 Creatinine 0.80 mg/dL (0.55-1.02) 04/10/18 05:19 Est GFR (MDRD) Af Amer > 60 (>60) 04/10/18 05:19 Est GFR (MDRD) Non-Af > 60 (>60) 04/10/18 05:19 Glucose 91 mg/dL (65-99) 04/10/18 05:19 Calcium 7.7 mg/dL (8.5-10.1) L 04/10/18 05:19 Corrected Calcium 8.4 mg/dL (8.5-10.1) L 04/10/18 05:19 Magnesium 1.8 mg/dL (1.7-2.9) 04/09/18 04:51 Total Bilirubin 0.40 mg/dL (0.2-1.0) 04/10/18 05:19 AST 15 Units/L (15-37) 04/10/18 05:19 ALT 19 Units/L (12-78) 04/10/18 05:19 Alkaline Phosphatase 63 Units/L (46-116) 04/10/18 05:19 Creatine Kinase 86 Units/L (26-192) 04/08/18 09:00 CK-MB (CK-2) 2.1 ng/mL (0-4.0) 04/08/18 09:00 CK/CKMB % Calc 2.4 % (<4) 04/08/18 09:00 Troponin I 0.13 ng/mL (0-1.5) 04/08/18 09:00 Total Protein 6.1 g/dL (6.4-8.2) L 04/10/18 05:19 Albumin 3.1 g/dL (3.4-5.0) L 04/10/18 05:19 Globulin 3.0 g/dL (2.5-4.5) 04/10/18 05:19 Albumin/Globulin Ratio 1.0 Ratio (1.1-2.1) L 04/10/18 05:19 Triglycerides 70 mg/dL (0-150) 04/08/18 03:12 Cholesterol 154 mg/dL (0-200) 04/08/18 03:12 LDL Cholesterol, Calc 91 mg/dL (0-100) 04/08/18 03:12 HDL Cholesterol 49 mg/dL (40-60) 04/08/18 03:12 Cholesterol/HDL Ratio 3.1 (0.0-5.0) 04/08/18 03:12 - Plan (1) Seizure disorder Status: Acute Plan: DEPAKOTE 250MG PO HS, 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
--- NOTE | 2018-04-29 23:57 | DR.CARTERD ---
- Discharge Summary for: Discharge Summary for Date of:: 04/10/18 - Admission Date Date of Admission: 04/07/18 - Admission Diagnoses Admission Diagnosis: (1) Seizure disorder (2) Altered mental status (3) Hypokalemia (4) Essential hypertension - Discharge Date Discharge Date: 04/10/18 - Discharge Diagnoses Discharge Diagnosis: (1) Seizure disorder (2) Altered mental status (3) Hypokalemia (4) Essential hypertension - Hospital Course Hospital Course: DAY ONE, MS. ANGELES IS A 72 YEAR OLD PATIENT OF OURS WHO PRESENTED TO THE EMERGENCY ROOM WITH FAMILY REPORTING ALTERED MENTAL STATUS AND SEIZURE LIKE ACTIVITY. PATIENT DENIED HISTORY OF SEIZURES, BUT REPORTED HAVING CHEST PAIN AND HEADACHE. FAMILY REPORTED THAT PATIENT BECAME INCONTINENT AFTER SEIZURE ACTIVITY. ON ARRIVAL, VITALS WERE 98.6-85-18-98%-171/84. LABS WERE OBTAINED. ABNORMAL LAB VALUES INCLUDED THE FOLLOWING: WBC 12.3, HGB 11.1, HCT 32.4, POTASSIUM 3.2, CARBON DIOXIDE 20.5, GLUCOSE 120, CALCIUM 8.4, TOTAL BILI 1.10. CARDIAC ENZYMES WITHIN NORMAL LIMITS. A CHEST XRAY WAS OBTAINED AND REVEALED: No acute cardiopulmonary disease. BRAIN CT OBTAINED AND REVEALED: No obvious acute intracranial pathology. If clinically concerned for acute ischemia/infarction MRI brain is more sensitive. EKG REVEALED: SINUS RHYTHM WITH HR 73. SHE WAS ADMITTED TO THE HOSPITAL FOR FURTHER EVAULATION AND TREATMENT OF ALTERED MENTAL STATUS AND SEIZURE ACTIVITY. SHE WAS STARTED ON NORMAL SALINE AT 75ML/HR AND HOME MEDICATIONS WERE RESUMED. WE FOLLOWED UP WITH AM LABS AND CONTINUED TO MONITOR. DAY TWO, SHE WAS ALERT AND ORIENTED, LYING IN BED ON MORNING ROUNDS. SHE WAS NOTED WITH COMPLAINTS OF GENERALIZED WEAKNESS TODAY. ON EXAMINATION, HEART WAS REGULAR IN RATE AND RHYTHM. BILATERAL LUNGS WERE NOTED WITH DIMINISHED LUNG SOUNDS THROUGHOUT. ABDOMEN WAS ROUND, SOFT, AND NON-TENDER WITH NORMAL BOWEL SOUNDS NOTED IN ALL QUADRANTS. HER VITALS THIS MORNING WERE 99.1-83-29-97%-158/96. LABS WERE OBTAINED. ABNORMAL LAB VALUES INCLUDED THE FOLLOWING: HGB 10.7, HCT 30.8, POTASSIUM 3.3, GLUCOSE 116, CALCIUM 8.2, TOTAL BILI 1.30. CARDIAC ENZYMES WITHIN NORMAL LIMITS. TODAY, WE STARTED DEPAKOTE 250MG PO HS. WE CONTINUED WITH CURRENT PLAN OF CARE. WE FOLLOWED UP WITH AM LABS AND CONTINUED TO MONITOR. DAY THREE, SHE WAS ALERT AND ORIENTED, LYING IN BED ON MORNING ROUNDS. SHE CONTINUED WITH COMPLAINTS OF GENERALIZED WEAKNESS TODAY. ON EXAMINATION, HEART WAS REGULAR IN RATE AND RHYTHM. BILATERAL LUNGS WERE NOTED WITH DIMINISHED LUNG SOUNDS THROUGHOUT. ABDOMEN WAS ROUND, SOFT, AND NON-TENDER WITH NORMAL BOWEL SOUNDS NOTED IN ALL QUADRANTS. HER VITALS THIS MORNING WERE 98.3-64-14-93%-135/68. LABS WERE OBTAINED. ABNORMAL LAB VALUES INCLUDED THE F OLLOWING: WBC 10.8, RBC 3.41, HGB 10.5, HCT 29.7, POTASSIUM 3.3, CARBON DIOXIDE 20.4, GLUCOSE 100, CALCIUM 7.7. WE CONTINUED WITH CURRENT PLAN OF CARE AND REPLACED HER POTASSIUM PER THE PROTOCOL. WE FOLLOWED UP WITH AM LABS AND CONTINUED TO MONITOR. DAY FOUR, PATIENT LYING IN BED ALERT AND ORIENTED ON MORNING ROUNDS. NO SIGNS AND SYMPTOMS OF ACUTE DISTRESS NOTED. PATIENT HAS NOT HAD ANY SEIZURE OR SEIZURE TYPE ACTIVITY. CARDIAC ENZYMES WERE NORMAL. VITAL SIGNS WERE STABLE. LABS WERE IN NORMAL RANGE FOR PATIENT. WE PLANNED FOR DISCHARGE. HOME HEALTH WAS SET-UP BY CASE MANAGEMENT. INSTRUCTIONS FOR MEDICATIONS AND FOLLOW UP WERE DISCUSSED WITH PATIENT AND FAMILY, BOTH VOICED UNDERSTANDING. PATIENT WAS DISCHARGED HOME IN STABLE CONDITION WITH FAMILY. - Discharge Medications Discharge Medications: Home Medication List alprazolam 1 mg PO QID 04/08/18 [History] citalopram 20 mg PO DAILY 04/08/18 [History] methadone 10 mg PO TID 04/08/18 [History] potassium chloride [Klor-Con 10] 10 meq PO DAILY 04/08/18 [History] sertraline [Zoloft] 25 mg PO DAILY 04/08/18 [History] divalproex 250 mg PO HS #30 tab 04/10/18 [Rx] Prescriptions: divalproex Viraj Wilkins - Discharge Disposition Discharge Disposition: PATIENT TO FOLLOW UP IN OUR OFFICE IN ONE WEEK.
== END 2018-04-10 13:50 | disposition home health service (06) ==
LOC: ICU 20:04 → ER 20:04 → ICU 23:50
PROVIDERS: ADMIT Internal Medicine; ATTEND Internal Medicine
DX: R07.89 Other chest pain; G40.802 Other epilepsy, not intractable, without status epilepticus; E11.65 Type 2 diabetes mellitus with hyperglycemia; E87.6 Hypokalemia; R26.89 Other abnormalities of gait and mobility; I10 Essential (primary) hypertension; R41.82 Altered mental status, unspecified; R53.1 Weakness; D72.828 Other elevated white blood cell count; R79.1 Abnormal coagulation profile
CPT/HCPCS: 36415; 70450; 71010; 71045; 80053; 80061; 82550; 82553; 83735; 84132; 84484; 85025; 85610; 85730; 93005; 93010; 96365; 96367; 96374; 99284; A4216; A4222; C9113; S0109; G0378; J2405; J7030; J8499

== ENCOUNTER 2019-04-09 11:48 | Observation (INO) ==
[2019-04-09 14:48] LABS: BASOPHILS % (AUTO) 0.6 % (0.2-1.0); EOSINOPHILS % (AUTO) 0.5 % (0.9-2.9); HEMATOCRIT 36.5 % (36.0-47.0); HEMOGLOBIN 12.9 g/dL (12.0-16.0); LYMPHOCYTES # (AUTO) 1.4 X10^3/uL (1.3-2.9); LYMPHOCYTES % (AUTO) 16.1 % (21.0-51.0); MEAN CORPUSCULAR HEMOGLOBIN 30.6 pg (27.0-34.0); MEAN CORPUSCULAR HGB CONC 35.2 g/dL (33.0-35.0); MEAN CORPUSCULAR VOLUME 86.7 fL (80.0-100.0); MEAN PLATELET VOLUME 5.9 fL (7.4-11.0); MONOCYTES # (AUTO) 0.9 x10^3/uL (0.3-0.8); MONOCYTES % (AUTO) 10.2 % (0.0-13.0); NEUTROPHILS # (AUTO) 6.2 x10^3/uL (2.2-4.8); NEUTROPHILS % (AUTO) 72.6 % (42.0-75.0); PLATELET COUNT 416 X10^3/uL (150.0-450.0); RED BLOOD COUNT 4.21 X10^6/uL (3.5-5.4); RED CELL DISTRIBUTION WIDTH 14.5 % (11.6-16.5); WHITE BLOOD COUNT 8.6 X10^3/uL (3.6-10.0)
[2019-04-09 14:59] LABS: ALANINE AMINOTRANSFERASE 20 Units/L (12-78); ALBUMIN 4.4 g/dL (3.4-5.0); ALKALINE PHOSPHATASE 92 Units/L (46-116); ASPARTATE AMINO TRANSFERASE 19 Units/L (15-37); BLOOD UREA NITROGEN 14 mg/dL (7-18); CALCIUM 9.2 mg/dL (8.5-10.1); CHLORIDE 97 mmol/L (98-107); COR NA(FOR HYPERGLY) 133 mmol/L (136-145); CREATININE 0.91 mg/dL (0.55-1.02); SODIUM 133 mmol/L (136-145); TOTAL PROTEIN 8.3 g/dL (6.4-8.2); eGFR NON BLACK RACES > 60 (>60)
[2019-04-09] MEDS: NS 1000 ML 1,000 ML IV SCH ×2 (15:18→21:51)
[2019-04-09] MEDS ORDERED: PROVENTIL NEB TX 0.083% 2.5MG/ 3ML NEB PRN (15:30)
[2019-04-09 15:58] VITALS: BMI 20.2
[2019-04-09 19:13] LABS: BILIRUBIN,URINE NEGATIVE (NEGATIVE); BLOOD/HEMOGLOBIN,URINE NEGATIVE (NEGATIVE); GLUCOSE, URINE NEGATIVE (NEGATIVE); KETONES,URINE NEGATIVE (NEGATIVE); LEUKOCYTE ESTERASE ,URINE NEGATIVE (NEGATIVE); NITRITES,URINE NEGATIVE (NEGATIVE); PROTEIN,URINE NEGATIVE (NEGATIVE); UROBILINOGEN,URINE NORMAL (NORMAL)
[2019-04-09 19:16] LABS: APPEARANCE,URINE CLEAR (CLEAR); COLOR,URINE YELLOW (YELLOW)
[2019-04-09] MEDS ORDERED: TYLENOL 325 MG TAB PO PRN (21:30)
[2019-04-10] MEDS: NS 1000 ML 1,000 ML IV SCH ×4 (05:21→22:23)
[2019-04-10 05:23] LABS: BASOPHILS # (AUTO) 0.1 X10^3/uL (0.0-0.1); BASOPHILS % (AUTO) 0.7 % (0.2-1.0); EOSINOPHILS # (AUTO) 0.3 x10^3/uL (0.0-0.2); EOSINOPHILS % (AUTO) 2.7 % (0.9-2.9); HEMATOCRIT 36.2 % (36.0-47.0); HEMOGLOBIN 12.2 g/dL (12.0-16.0); LYMPHOCYTES # (AUTO) 3.8 X10^3/uL (1.3-2.9); LYMPHOCYTES % (AUTO) 36.1 % (21.0-51.0); MEAN CORPUSCULAR HEMOGLOBIN 30.6 pg (27.0-34.0); MEAN CORPUSCULAR HGB CONC 33.6 g/dL (33.0-35.0); MEAN CORPUSCULAR VOLUME 91.1 fL (80.0-100.0); MEAN PLATELET VOLUME 6.5 fL (7.4-11.0); MONOCYTES # (AUTO) 0.8 x10^3/uL (0.3-0.8); MONOCYTES % (AUTO) 7.8 % (0.0-13.0); NEUTROPHILS # (AUTO) 5.5 x10^3/uL (2.2-4.8); NEUTROPHILS % (AUTO) 52.7 % (42.0-75.0); PLATELET COUNT 460 X10^3/uL (150.0-450.0); RED BLOOD COUNT 3.97 X10^6/uL (3.5-5.4); WHITE BLOOD COUNT 10.5 X10^3/uL (3.6-10.0)
[2019-04-10 05:36] LABS: ALANINE AMINOTRANSFERASE 21 Units/L (12-78); ALBUMIN 3.9 g/dL (3.4-5.0); ALKALINE PHOSPHATASE 83 Units/L (46-116); ASPARTATE AMINO TRANSFERASE 17 Units/L (15-37); BLOOD UREA NITROGEN 13 mg/dL (7-18); CALCIUM 8.4 mg/dL (8.5-10.1); CARBON DIOXIDE 15.6 mmol/L (21-32); CHLORIDE 101 mmol/L (98-107); COR NA(FOR HYPERGLY) 138 mmol/L (136-145); CREATININE 1.24 mg/dL (0.55-1.02); SODIUM 137 mmol/L (136-145); TOTAL PROTEIN 7.7 g/dL (6.4-8.2); eGFR NON BLACK RACES 45 (>60)
[2019-04-10] MEDS ORDERED: KLOR-CON PO PRN (06:11)
[2019-04-10] MEDS ORDERED: K-DUR TAB 20 MEQ PO PRN (06:11)
[2019-04-10] MEDS ORDERED: POTASSIUM CHL 40 MEQ/NS 0.45% 500 ML IV PRN (06:11)
[2019-04-10] MEDS ORDERED: POTASSIUM CHLORIDE LIQ 20 MEQ UDC PO PRN (06:11)
[2019-04-10] MEDS ORDERED: POTASSIUM CHL 60 MEQ/NS 0.45% 500 ML IV PRN (06:11)
[2019-04-10] MEDS ORDERED: MAGNESIUM SULFATE 1 GRAM/100 mL PREMIX 1 GM/100 ML BAG IV PRN (06:11)
[2019-04-10] MEDS ORDERED: K-RIDER 10 MEQ/NS 100 ML 10 MEQ/100 ML BAG IV PRN (06:11)
[2019-04-10] MEDS ORDERED: MICRO K EXTEN CAP 10 MEQ PO PRN (06:11)
[2019-04-10] MEDS: ATIVAN TAB 0.5 MG PO PRN ×2 (11:31→22:21)
[2019-04-10] MEDS: ZyPREXA TAB 5 MG PO SCH ×2 (11:31→18:59)
--- NOTE | 2019-04-10 13:41 | DR.H&P ---
H&P - History & Physical for Day of: H&P Date: 04/09/19 - Chief Complaint Chief Complaint: SYNCOPE, GENERALIZED WEAKNESS, AMS - History of Present Illness History of Present Illness: IS A 73 YEAR OLD PATIENT OF OURS WHO PRESENTED TO THE HOSPITAL A DIRECT ADMISSION DUE TO COMPLAINTS OF SYNCOPE, GENERALIZED WEAKNESS, AND ALTERED MENTAL STATUS. FAMILY REPORTS THAT PATIENT FELL AND HIT HER HEAD EARLIER IN THE MORNING. FAMILY REPORTS LOC. PATIENT REPORTS HEADACHE AND GENERALIZED BODY ACHES. PATIENT WAS SEEN IN THE ER EARLIER THIS MORNING. A BRAIN CT WAS OBTAINED AT THAT TIME AND REVEALED NO ACUTE INTRACRANIAL ABNORMALITY. ON ADMISSION TO THE HOSPITAL, VITALS WERE 98.9-86-20-97%-136/69. LABS WERE OBTAINED. ABNORMAL LAB VALUES INCLUDE THE FOLLOWING: SODIUM 133, CHLORIDE 97, GLUCOSE 114, TOTAL BILI 1.10, TOTAL PROTEIN 8.3. URINALYSIS IS UNREMARKABLE, BUT A CULTURE WAS SET UP. WE WILL START NORMAL SALINE AT 125ML/HR AND RESPIRATORY TX. WE WILL REPEAT A BRAIN CT IN THE MORNING. OTHERWISE, WE WILL FOLLOW UP WITH AM LABS AND CONTINUE TO MONITOR. - Past Medical History Past Medical History: Hypertension, Diabetes, COPD - Past Surgical History Surgical History: Appendectomy, Hysterectomy - Family History Family Medical History: Diabetes Mellitus, Cancer, Hypertension - Social History Does patient currently use any type of tobacco product: No Have you used tobacco products in the last 12 months: No Type of Tobacco Use: None Does any household member use tobacco: No Alcohol Use: None Drug Use: None - Medications Home Medications: prochlorperazine [From Compazine] Allergy (Verified 07/01/18 07:58) CONTINUE taking the following medications eszopiclone 3 mg PO HS 04/09/19 [History] - Review of Systems Constitutional: Weakness Eyes: No Symptoms Reported ENT: No Symptoms Reported Respiratory: No Symptoms Reported Cardiovascular: No Symptoms Reported Gastrointestinal: No Symptoms Reported Genitourinary: No Symptoms Reported Musculoskeletal: No Symptoms Reported Skin: No Symptoms Reported Neurological: Weakness, Confusion - Physical Exam Vital Signs: Temperature 99.6 F Pulse Rate [Left Brachial] 113 Pulse Rate 100 Respiratory Rate 20 Blood Pressure [Left Arm] 135/91 Blood Pressure [Right Arm] 138/73 O2 Sat by Pulse Oximetry 93 Oriented: Not Oriented Eyes: Normal Ear: Normal Nose: Normal Throat: Normal Respiratory: Diminished Throughout Cardiovascular: Normal. negative: S3, S4, Murmur : Normal Auscultation: Bowel Sounds: Normal Palpation: Normal Tenderness: Normal Skin: Decreased Turgur Musculoskeletal: Normal Psychiatric: Normal Mood Description: Anxious Affect: Anxious Speech Pattern: Inappropriate - Assessment/Plan (1) Syncope Qualifiers: Syncope type: unspecified Qualified Code(s): R55 - Syncope and collapse Status: Acute Plan: NORMAL SALINE, REPEAT BRAIN CT IN AM, CONTINUE TO MONITOR (2) Weakness Status: Acute (3) Altered mental status Qualifiers: Altered mental status type: transient alteration of awareness Qualified Code(s): R40.4 - Transient alteration of awareness Status: Acute Plan: REPEAT BRAIN CT IN AM - Allergies Allergies/Adverse Reactions: Allergies Allergy/AdvReac Type Severity Reaction Status Date / Time prochlorperazine Allergy Verified 07/01/18 07:58 [From Compazine]
--- NOTE | 2019-04-10 15:05 | RAD ---
History: Shortness of breathStudy: Upright portable AP chestComparison: November 03, 2018Findings: There is a large hiatal hernia. The heart size is normal with intact pacemaker wire leads via the left subclavian vein. The lungs are grossly clear. There is an old right 8th lateral rib fracture. There is no edema or effusion.Impression: Large hiatal hernia, no acute cardiopulmonary disease.Reported By:
[2019-04-10] MEDS: DIFLUCAN PO SCH (16:20)
[2019-04-10] MEDS ORDERED: ZESTRIL TAB 20 MG PO SCH (22:00)
[2019-04-10] MEDS ORDERED: DEPAKOTE D.R. TAB PO SCH (22:00)
[2019-04-10] MEDS ORDERED: METHADONE 5 MG PO SCH (22:00)
[2019-04-10] MEDS ORDERED: AMBIEN PO PRN (22:06)
[2019-04-10] MEDS ORDERED: AMBIEN PO SCH (22:07)
[2019-04-10] MEDS ORDERED: ZESTRIL TAB 20 MG ONE (22:18)
[2019-04-10] MEDS: NEURONTIN CAP 300 MG PO SCH (22:20)
[2019-04-10] MEDS: METHADONE HCL PO SCH (22:21)
[2019-04-10] MEDS: TOPROL XL PO SCH (22:21)
[2019-04-11 05:42] LABS: BASOPHILS % (AUTO) 0.8 % (0.2-1.0); EOSINOPHILS # (AUTO) 0.4 x10^3/uL (0.0-0.2); EOSINOPHILS % (AUTO) 6.3 % (0.9-2.9); HEMATOCRIT 28.7 % (36.0-47.0); LYMPHOCYTES # (AUTO) 1.8 X10^3/uL (1.3-2.9); LYMPHOCYTES % (AUTO) 30.1 % (21.0-51.0); MEAN CORPUSCULAR HEMOGLOBIN 31.2 pg (27.0-34.0); MEAN CORPUSCULAR HGB CONC 34.8 g/dL (33.0-35.0); MEAN CORPUSCULAR VOLUME 89.4 fL (80.0-100.0); MEAN PLATELET VOLUME 6.1 fL (7.4-11.0); MONOCYTES # (AUTO) 0.5 x10^3/uL (0.3-0.8); MONOCYTES % (AUTO) 8.5 % (0.0-13.0); NEUTROPHILS # (AUTO) 3.3 x10^3/uL (2.2-4.8); NEUTROPHILS % (AUTO) 54.3 % (42.0-75.0); PLATELET COUNT 244 X10^3/uL (150.0-450.0); RED BLOOD COUNT 3.21 X10^6/uL (3.5-5.4); RED CELL DISTRIBUTION WIDTH 14.2 % (11.6-16.5)
[2019-04-11 06:03] LABS: ALANINE AMINOTRANSFERASE 22 Units/L (12-78); ALKALINE PHOSPHATASE 63 Units/L (46-116); ASPARTATE AMINO TRANSFERASE 33 Units/L (15-37); BLOOD UREA NITROGEN 10 mg/dL (7-18); CARBON DIOXIDE 25.5 mmol/L (21-32); CHLORIDE 109 mmol/L (98-107); COR CA(FOR HYPOALB) 8.8 mg/dL (8.5-10.1); SODIUM 140 mmol/L (136-145); eGFR NON BLACK RACES > 60 (>60)
[2019-04-11] MEDS: NS 1000 ML 1,000 ML IV SCH ×3 (06:08→14:31)
[2019-04-11] MEDS: METHADONE HCL PO SCH ×2 (06:08→14:39)
[2019-04-11] MEDS: ZyPREXA TAB 5 MG PO SCH (06:09)
[2019-04-11] MEDS: DIFLUCAN PO SCH (08:51)
[2019-04-11] MEDS: NEURONTIN CAP 300 MG PO SCH (08:51)
[2019-04-11] MEDS: TOPROL XL PO SCH (08:51)
--- NOTE | 2019-04-11 11:30 | PCM.PROG ---
Progress Note - Progress Note for Day of Date of Exam: 04/10/19 - Subjective Subjective: WAS ADMITTED FOR SYNCOPE, GENERALIZED WEAKNESS, AND ALTERED MENTAL STATUS. TODAY, SHE IS DISORIENTED, WALKING AROUND THE ROOM WITH STAFF ASSISTING. STAFF REPORTS THAT SHE HAS BEEN AGITATED THROUGHOUT THE NIGHT. SHE COMPLAINS OF ITCHING TO VAGINAL AREA. ON EXAMINATION, SHE IS NOTED TO BE TACHYCARDIC. BILATERAL LUNGS ARE CLEAR TO AUSCULTATION. ABDOMEN IS ROUND, SOFT, AND NON-TENDER WITH NORMAL BOWEL SOUNDS NOTED IN ALL QUADRNATS. HER VITALS THIS MORNING ARE: 99.0-124-20-94%-136/72. LABS WERE OBTAINED. ABNORMAL LAB VALUES INCLUDE THE FOLLOWING: WBC 10.5, PLT COUNT 460, SODIUM 3.2, CARBON DIOXIDE 15.6, CREATININE 1.24, GLUCOSE 140, CALCIUM 8.4. A URINE CULTURE IS PENDING. A CHEST XRAY WAS OBTAINED TODAY AND REVEALED: LARGE HIATAL HERNIA, NO ACUTE CARDIOPULMONARY DISEASE. TODAY, WE WILL START ATIVAN 0.5MG PO BID AND ZYPREXA 5MG PO BID. WE WILL REPEAT A CT WHEN PATIENT IS MORE COOPERATIVE. WE WILL ALSO START DIFLUCAN 100MG PO DAILY. OTHERWISE, WE WILL FOLLOW UP WITH AM LABS AND CONTINUE TO MONITOR. - Past Medical Family Social History Past Med/Fam/Surg Hx: No changes since H&P Allergies: Allergies Penicillins Allergy (Verified 04/10/19 18:58) prochlorperazine [From Compazine] Allergy (Verified 07/01/18 07:58) - Review of Systems ROS: No change since H&P - Vital Signs and I&O's Vital Signs: Temperature 97.7 F Pulse Rate [Left Brachial] 64 Pulse Rate 63 Respiratory Rate 18 Blood Pressure [Left Arm] 112/59 Blood Pressure [Right Arm] 138/73 O2 Sat by Pulse Oximetry 96 Intake and Output: Intake & Output 04/08/19 04/09/19 04/10/19 04/11/19 11:59 11:59 11:59 11:59 Intake Total 2303 / 2303 2479 / 2479 Output Total 0 / 0 300 / 300 Balance 2303 / 2303 2179 / 2179 - Physical Exam Oriented: Not Oriented Eyes: Normal Ear: Normal Nose: Normal Throat: Normal Respiratory: Normal Cardiovascular: Tachycardia. negative: S3, S4, Murmur : Normal Auscultation: Bowel Sounds: Normal Palpation: Normal Tenderness: Normal Skin: Decreased Turgur Musculoskeletal: Normal Psychiatric: Normal Mood Description: Anxious Affect: Anxious Speech Pattern: Clear - Laboratory and Diagnostics Result Diagrams: 04/11/19 05:16 04/11/19 05:16 Labs: 04/09/19 18:50 Urine,Clean Catch Urine Culture - Final Laboratory WBC 6.0 X10^3/uL (3.6-10.0) 04/11/19 05:16 RBC 3.21 X10^6/uL (3.5-5.4) L 04/11/19 05:16 Hgb 10.0 g/dL (12.0-16.0) L D 04/11/19 05:16 Hct 28.7 % (36.0-47.0) L 04/11/19 05:16 MCV 89.4 fL (80.0-100.0) 04/11/19 05:16 MCH 31.2 pg (27.0-34.0) 04/11/19 05:16 MCHC 34.8 g/dL (33.0-35.0) 04/11/19 05:16 RDW 14.2 % (11.6-16.5) 04/11/19 05:16 Plt Count 244 X10^3/uL (150.0-450.0) 04/11/19 05:16 MPV 6.1 fL (7.4-11.0) L 04/11/19 05:16 Neut % (Auto) 54.3 % (42.0-75.0) 04/11/19 05:16 Lymph % (Auto) 30.1 % (21.0-51.0) 04/11/19 05:16 [place] % (Auto) 8.5 % (0.0-13.0) 04/11/19 05:16 Eos % (Auto) 6.3 % (0.9-2.9) H 04/11/19 05:16 Baso % (Auto) 0.8 % (0.2-1.0) 04/11/19 05:16 Neut # (Auto) 3.3 x10^3/uL (2.2-4.8) 04/11/19 05:16 Lymph # (Auto) 1.8 X10^3/uL (1.3-2.9) 04/11/19 05:16 [place] # (Auto) 0.5 x10^3/uL (0.3-0.8) 04/11/19 05:16 Eos # (Auto) 0.4 x10^3/uL (0.0-0.2) H 04/11/19 05:16 Baso # (Auto) 0.0 X10^3/uL (0.0-0.1) 04/11/19 05:16 Absolute Nucleated RBC 0.7 /100WBC 04/11/19 05:16 Sodium 140 mmol/L (136-145) 04/11/19 05:16 Corrected Sodium TNP 04/11/19 05:16 Potassium 4.0 mmol/L (3.5-5.1) 04/11/19 05:16 Chloride 109 mmol/L (98-107) H 04/11/19 05:16 Carbon Dioxide 25.5 mmol/L (21-32) 04/11/19 05:16 BUN 10 mg/dL (7-18) 04/11/19 05:16 Creatinine 0.90 mg/dL (0.55-1.02) 04/11/19 05:16 Est GFR (MDRD) Af Amer > 60 (>60) 04/11/19 05:16 Est GFR (MDRD) Non-Af > 60 (>60) 04/11/19 05:16 Glucose 98 mg/dL (65-99) 04/11/19 05:16 Calcium 8.0 mg/dL (8.5-10.1) L 04/11/19 05:16 Corrected Calcium 8.8 mg/dL (8.5-10.1) 04/11/19 05:16 Magnesium 2.1 mg/dL (1.7-2.9) 04/10/19 04:39 Total Bilirubin 0.50 mg/dL (0.2-1.0) 04/11/19 05:16 AST 33 Units/L (15-37) 04/11/19 05:16 ALT 22 Units/L (12-78) 04/11/19 05:16 Alkaline Phosphatase 63 Units/L (46-116) 04/11/19 05:16 Total Protein 6.0 g/dL (6.4-8.2) L 04/11/19 05:16 Albumin 3.0 g/dL (3.4-5.0) L 04/11/19 05:16 Globulin 3.0 g/dL (2.5-4.5) 04/11/19 05:16 Albumin/Globulin Ratio 1.0 Ratio (1.1-2.1) L 04/11/19 05:16 Specimen Type Clean catch urine 04/09/19 18:50 Urine Color Yellow (YELLOW) 04/09/19 18:50 Urine Appearance Clear (CLEAR) 04/09/19 18:50 Urine pH 5.0 (5.0 - 8.0) 04/09/19 18:50 Ur Specific [place] 1.010 (1.000-1.030) 04/09/19 18:50 Urine Protein Negative (NEGATIVE) 04/09/19 18:50 Urine Glucose (UA) Negative (NEGATIVE) 04/09/19 18:50 Urine Ketones Negative (NEGATIVE) 04/09/19 18:50 Urine Occult Blood Negative (NEGATIVE) 04/09/19 18:50 Urine Nitrite Negative (NEGATIVE) 04/09/19 18:50 Urine Bilirubin Negative (NEGATIVE) 04/09/19 18:50 Urine Urobilinogen Normal (NORMAL) 04/09/19 18:50 Ur Leukocyte Esterase Negative (NEGATIVE) 04/09/19 18:50 - Plan (1) Syncope Status: Acute Qualifiers: Syncope type: unspecified Qualified Code(s): R55 - Syncope and collapse Plan: NORMAL SALINE, REPEAT BRAIN CT IN AM, CONTINUE TO MONITOR (2) Weakness Status: Acute (3) Altered mental status Status: Acute Qualifiers: Altered mental status type: transient alteration of awareness Qualified Code(s): R40.4 - Transient alteration of awareness Plan: REPEAT BRAIN CT IN AM (4) Vaginal yeast infection Status: Acute Plan: DIFLUCAN 100MG PO DAILY
[2019-04-11 12:31] VITALS: BP 116/67
--- NOTE | 2019-04-11 13:52 | CT ---
History: Syncope and altered mental status Study: CT head without contrast. Sagittal and coronal reformations were provided. Dose reduction techniques were utilized.Comparison: April 09, 2019Findings: The ventricles sulci remain mildly enlarged without mass effect. There is no intracranial hemorrhage or mass or edema or subdural collection of fluid. The calvarium is intact. Paranasal sinuses remain clear.Impression: No evidence for acute intracranial diseaseReported By:
[2019-04-11] MEDS ORDERED: ESZOPICLONE 3 MG PO SCH (21:00)
== END 2019-04-11 15:50 | disposition home or self-care (01) ==
LOC: MED/SURG
PROVIDERS: ADMIT Internal Medicine; ATTEND Internal Medicine
DX: J44.9 Chronic obstructive pulmonary disease, unspecified; I10 Essential (primary) hypertension; R26.89 Other abnormalities of gait and mobility; R40.4 Transient alteration of awareness; R06.02 Shortness of breath; E11.65 Type 2 diabetes mellitus with hyperglycemia; B37.3 Candidiasis of vulva and vagina; Z91.81 History of falling; K44.9 Diaphragmatic hernia without obstruction or gangrene; W06.XXXA Fall from bed, initial encounter; R55 Syncope and collapse; R53.1 Weakness; Y92.009 Unspecified place in unspecified non-institutional (private) residence as the place of occurrence of the external cause
CPT/HCPCS: 36415; 70450; 71010; 71045; 80053; 81003; 83735; 84132; 85025; 87086; 94760; 96360; 96361; 97162; 97166; A4216; A4222; S0109; G0378; J3490; J7030

== ENCOUNTER 2022-10-26 17:32 | Observation (INO) ==
[2022-10-26] MEDS ORDERED: APRESOLINE INJ 20 MG VIAL IVP ONE (17:42)
--- NOTE | 2022-10-26 17:42 | DR.CP ---
HPI Time Seen Time Seen by Provider: 10/26/22 17:37 Complaint Chief Complaint Doctor Comments: 76 y/o female brought in by EMS for evaluation. Has been having left sided chest pressure over the past week, worsened past 2 days. Fairly constant, does not radiate. Nothing makes it better, nothing makes it worse. BP elevated on EMS arrival. 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 Pt c/o headache, nausea. + cough, productive of white phlegm. No known fever, but has felt warm. No bowel or bladder complaints. Doesn't sleep well since of spouse, > 1 year ago. + h/o anxiety. trying to establish with new medical provider, Ms. Mahoney. Reviewed Nurses Notes Review: Yes Source History Provided: Patient and EMS Mode of Arrival Mode of Arrival: EMS PMH PMH Past Medical History: Anxiety, Arthritis, Asthma, COPD, Depression, Diabetes, GERD and Hypertension Past Surgical History: Yes Surgical History: Appendectomy, Cholecystectomy and Hysterectomy Family History Family Medical History: Diabetes Mellitus, Cancer and Hypertension Social History Does patient currently use any type of tobacco product: No Alcohol Use: None Do you use any recreational Drugs:: No ROS Review of Systems Constitutional: Weakness Eyes: No Symptoms Reported ENTM: No Symptoms Reported Respiratoy: Productive Cough Cardiovascular: Chest Pain Gastrointestinal/Abdominal: Nausea Genitourinary: No Symptoms Reported Neurological: Weakness Musculoskeletal: No Symptoms Reported Integumentary: No Symptoms Reported Psychiatric: Anxiety All Other Systems: Reviewed and Negative PE Vitals Vitals: Vital Signs Temperature 99.1 F Pulse Rate 96 Pulse Rate 101 Pulse Rate 98 Pulse Rate 102 Pulse Rate 97 Pulse Rate 100 Pulse Rate 97 Pulse Rate 104 Pulse Rate 104 Pulse Rate 100 Pulse Rate 79 Pulse Rate 87 Pulse Rate 89 Pulse Rate 92 Respiratory Rate 36 Respiratory Rate 33 Respiratory Rate 25 Respiratory Rate 28 Respiratory Rate 37 Respiratory Rate 25 Respiratory Rate 24 Respiratory Rate 35 Respiratory Rate 37 Respiratory Rate 46 Respiratory Rate 18 Respiratory Rate 24 Respiratory Rate 19 Respiratory Rate 22 Respiratory Rate 22 Blood Pressure 177/84 Blood Pressure 173/81 Blood Pressure 186/84 Blood Pressure 199/97 Blood Pressure 199/97 Blood Pressure 206/107 Blood Pressure 221/113 Blood Pressure 203/101 O2 Sat by Pulse Oximetry 96 O2 Sat by Pulse Oximetry 96 O2 Sat by Pulse Oximetry 97 O2 Sat by Pulse Oximetry 92 O2 Sat by Pulse Oximetry 97 O2 Sat by Pulse Oximetry 96 O2 Sat by Pulse Oximetry 96 O2 Sat by Pulse Oximetry 96 O2 Sat by Pulse Oximetry 95 O2 Sat by Pulse Oximetry 95 O2 Sat by Pulse Oximetry 97 O2 Sat by Pulse Oximetry 97 O2 Sat by Pulse Oximetry 97 O2 Sat by Pulse Oximetry 95 General General Appearance: Alert and In No Apparent Distress Eyes Eye exam: PERRL and EOMI ENT ENT Exam: Normal Oropharynx and Mucous Membranes Moist Respiratory Respiratory Exam: Normal Lung Sounds Bilat; negative Accessory Muscle Use or Respiratory Distress Cardiovascular Cardiovascular Exam: Regular Rate, Normal Rhythm and Normal Heart Sounds Abdominal Exam Abdominal Exam: Normal Bowel Sounds and Soft; negative Tenderness Extremities Extremities Exam: Normal Inspection and Full ROM Back Back Exam: Normal Inspection Skin Skin Exam: Warm and Dry COURSE Treatment Treatment: 76 y/o female presents with several days of L chest pain. Has markedly elevated BP, only takes lisinopril. Pt has been trying to establish with Ms. Mahoney. Sent in here on 1st visit with elevated BP. Treated and d/c'd then. Pt given ASA RAILWAY YARD ASSISTANT by EMS. Given IV hydralazine here. Given IV zofran/dilaudid for headache. 1912 - BP 186/84. Labs acceptable. CXR - without acute abnormalities. Troponin normal (chest pain x several days). No evidence for acute coronary disease. Recommend admission for hypertensive urgency. Dis cussed with Dr Diaz, accepts the admission. ROR Labs Reviewed Laboratory Results Reviewed?: Yes Result Diagrams: 10/26/22 17:50 10/26/22 17:50 Laboratory: WBC 5.7 X10^3/uL (3.6-10.0) 10/26/22 17:50 RBC 3.54 X10^6/uL (3.5-5.4) 10/26/22 17:50 Hgb 9.9 g/dL (12.0-16.0) L 10/26/22 17:50 Hct 29.1 % (36.0-47.0) L 10/26/22 17:50 MCV 82.0 fL (80.0-100.0) 10/26/22 17:50 MCH 28.0 pg (27.0-34.0) 10/26/22 17:50 MCHC 34.1 g/dL (33.0-35.0) 10/26/22 17:50 RDW 15.4 % (11.6-16.5) 10/26/22 17:50 Plt Count 303 X10^3/uL (150.0-450.0) 10/26/22 17:50 MPV 6.4 fL (7.4-11.0) L 10/26/22 17:50 Neut % (Auto) 61.0 % (42.0-75.0) 10/26/22 17:50 Lymph % (Auto) 21.8 % (21.0-51.0) 10/26/22 17:50 [place] % (Auto) 8.1 % (0.0-13.0) 10/26/22 17:50 Eos % (Auto) 8.5 % (0.9-2.9) H 10/26/22 17:50 Baso % (Auto) 0.6 % (0.2-1.0) 10/26/22 17:50 Neut # (Auto) 3.5 x10^3/uL (2.2-4.8) 10/26/22 17:50 Lymph # (Auto) 1.2 X10^3/uL (1.3-2.9) L 10/26/22 17:50 [place] # (Auto) 0.5 x10^3/uL (0.3-0.8) 10/26/22 17:50 Eos # (Auto) 0.5 x10^3/uL (0.0-0.2) H 10/26/22 17:50 Baso # (Auto) 0.0 X10^3/uL (0.0-0.1) 10/26/22 17:50 Absolute Nucleated RBC 0.0 /100WBC 10/26/22 17:50 Sodium 141 mmol/L (136-145) 10/26/22 17:50 Corrected Sodium 142 mmol/L (136-145) 10/26/22 17:50 Potassium 3.8 mmol/L (3.5-5.1) 10/26/22 17:50 Chloride 106 mmol/L (98-107) 10/26/22 17:50 Carbon Dioxide 25.7 mmol/L (21-32) 10/26/22 17:50 BUN 10 mg/dL (7-18) 10/26/22 17:50 Creatinine 0.88 mg/dL (0.55-1.02) 10/26/22 17:50 Est GFR (MDRD) Af Amer > 60 (>60) 10/26/22 17:50 Est GFR (MDRD) Non-Af > 60 (>60) 10/26/22 17:50 Glucose 123 mg/dL (65-99) H 10/26/22 17:50 Calcium 8.0 mg/dL (8.5-10.1) L 10/26/22 17:50 Corrected Calcium TNP 10/26/22 17:50 Total Bilirubin 0.40 mg/dL (0.2-1.0) 10/26/22 17:50 AST 21 Units/L (15-37) 10/26/22 17:50 ALT 28 Units/L (12-78) 10/26/22 17:50 Alkaline Phosphatase 85 Units/L (46-116) 10/26/22 17:50 Troponin I High Sens 13.1 ng/L (4.0-60.0) 10/26/22 17:50 Total Protein 6.9 g/dL (6.4-8.2) 10/26/22 17:50 Albumin 3.6 g/dL (3.4-5.0) 10/26/22 17:50 Globulin 3.3 g/dL (2.5-4.5) 10/26/22 17:50 Albumin/Globulin Ratio 1.1 Ratio (1.1-2.1) 10/26/22 17:50 Lipase 96 Units/L (73-393) 10/26/22 17:50 Specimen Type Random urine 10/26/22 18:43 Urine Color Pale yellow (YELLOW) 10/26/22 18:43 Urine Appearance Clear (CLEAR) 10/26/22 18:43 Urine pH 6.0 (5.0 - 8.0) 10/26/22 18:43 Ur Specific [place] 1.010 (1.000-1.030) 10/26/22 18:43 Urine Protein Negative (NEGATIVE) 10/26/22 18:43 Urine Glucose (UA) Negative (NEGATIVE) 10/26/22 18:43 Urine Ketones Negative (NEGATIVE) 10/26/22 18:43 Urine Blood Negative (NEGATIVE) 10/26/22 18:43 Urine Nitrite Negative (NEGATIVE) 10/26/22 18:43 Urine Bilirubin Negative (NEGATIVE) 10/26/22 18:43 Urine Urobilinogen Normal (NORMAL) 10/26/22 18:43 Ur Leukocyte Esterase Negative (NEGATIVE) 10/26/22 18:43 Labs acceptable, mild anemia. XRAY XRAY Interpreted by: Self X-ray Results: No acute abnormalities EKG Rate: 98 [place]: Normal Rhythm: NSR Block: None ST: Normal Opioid Opioid Risk Tool Age (Kaiden box if 16-45): No History of Preadolescent Sexual Abuse: No Total: 0 Total Score Risk Category: Low Risk Copyright: Fito BRANCH predicting aberrant behaviors Discharge Plan Diagnosis Discharge Problem: Hypertensive urgency Discharge Plan Patient Disposition: ADMITTED INPATIENT Condition: Stable Orders to Discharge Patient Discharge Orders: Transfer (Routine); Ordered 10/26/22 Ordered By: Tony Watts
[2022-10-26] MEDS ORDERED: APRESOLINE INJ 20 MG VIAL ONE (17:46)
[2022-10-26] MEDS ORDERED: DILAUDID INJ IVP ONE (17:49)
[2022-10-26] MEDS ORDERED: ZOFRAN INJ 4 MG VIAL IVP ONE (17:49)
[2022-10-26] MEDS ORDERED: DILAUDID INJ ONE (17:51)
[2022-10-26] MEDS ORDERED: ZOFRAN INJ 4 MG VIAL ONE (17:51)
[2022-10-26 17:58] LABS: BASOPHILS % (AUTO) 0.6 % (0.2-1.0); EOSINOPHILS # (AUTO) 0.5 x10^3/uL (0.0-0.2); EOSINOPHILS % (AUTO) 8.5 % (0.9-2.9); HEMATOCRIT 29.1 % (36.0-47.0); HEMOGLOBIN 9.9 g/dL (12.0-16.0); LYMPHOCYTES # (AUTO) 1.2 X10^3/uL (1.3-2.9); LYMPHOCYTES % (AUTO) 21.8 % (21.0-51.0); MEAN CORPUSCULAR HGB CONC 34.1 g/dL (33.0-35.0); MEAN PLATELET VOLUME 6.4 fL (7.4-11.0); MONOCYTES # (AUTO) 0.5 x10^3/uL (0.3-0.8); MONOCYTES % (AUTO) 8.1 % (0.0-13.0); NEUTROPHILS # (AUTO) 3.5 x10^3/uL (2.2-4.8); PLATELET COUNT 303 X10^3/uL (150.0-450.0); RED BLOOD COUNT 3.54 X10^6/uL (3.5-5.4); RED CELL DISTRIBUTION WIDTH 15.4 % (11.6-16.5); WHITE BLOOD COUNT 5.7 X10^3/uL (3.6-10.0)
--- NOTE | 2022-10-26 17:58 | EKG ---
Test Reason : chest pain Blood Pressure : */* mmHG Vent. Rate : 98 BPM Atrial Rate : 98 BPM P-R Int : 160 ms QRS Dur : 74 ms QT Int : 344 ms P-R-T Axes : 42 -9 34 degrees QTc Int : 439 ms Normal sinus rhythm Septal infarct , age undetermined Abnormal ECG No previous ECGs available Confirmed by Kevin Eric ([id number]) on 10/26/2022 6:31:43 PM Referred By: Confirmed By: Kevin Eric
[2022-10-26 18:13] LABS: ALANINE AMINOTRANSFERASE 28 Units/L (12-78); ALBUMIN 3.6 g/dL (3.4-5.0); ALKALINE PHOSPHATASE 85 Units/L (46-116); ASPARTATE AMINO TRANSFERASE 21 Units/L (15-37); BLOOD UREA NITROGEN 10 mg/dL (7-18); CARBON DIOXIDE 25.7 mmol/L (21-32); CHLORIDE 106 mmol/L (98-107); COR NA(FOR HYPERGLY) 142 mmol/L (136-145); CREATININE 0.88 mg/dL (0.55-1.02); GLUCOSE 123 mg/dL (65-99); LIPASE 96 Units/L (73-393); POTASSIUM 3.8 mmol/L (3.5-5.1); SODIUM 141 mmol/L (136-145); TOTAL PROTEIN 6.9 g/dL (6.4-8.2); eGFR NON BLACK RACES > 60 (>60)
[2022-10-26 18:49] LABS: BILIRUBIN,URINE NEGATIVE (NEGATIVE); BLOOD/HEMOGLOBIN,URINE NEGATIVE (NEGATIVE); GLUCOSE, URINE NEGATIVE (NEGATIVE); KETONES,URINE NEGATIVE (NEGATIVE); LEUKOCYTE ESTERASE ,URINE NEGATIVE (NEGATIVE); NITRITES,URINE NEGATIVE (NEGATIVE); PROTEIN,URINE NEGATIVE (NEGATIVE); UROBILINOGEN,URINE NORMAL (NORMAL)
[2022-10-26 18:50] LABS: APPEARANCE,URINE CLEAR (CLEAR); COLOR,URINE PALE YELLOW (YELLOW)
[2022-10-26] MEDS ORDERED: APRESOLINE INJ 20 MG VIAL IVP PRN (19:54)
[2022-10-26] MEDS ORDERED: PATIENT'S HOME MEDICATION (Alprazolam [Xanax] 0.5 mg Tablet) PO PRN (19:54)
[2022-10-26 20:24] VITALS: BMI 24.0
[2022-10-26] MEDS ORDERED: XOPENEX 1.25 MG/3 ML NEBULE NEB PRN (20:36)
[2022-10-26] MEDS ORDERED: CATAPRES TAB 0.2 MG PO SCH (21:00)
[2022-10-26] MEDS ORDERED: PHARMACY CONSULT - POTASSIUM & MAGNESIUM XX SCH (21:00)
[2022-10-26] MEDS: XANAX PO PRN (21:04)
[2022-10-26] MEDS ORDERED: K-DUR TAB 20 MEQ PO SCH (22:00)
[2022-10-26] MEDS ORDERED: MAGNESIUM SULFATE 1 GRAM/100 mL PREMIX 1 G/100 ML BAG IV SCH (22:00)
[2022-10-26] MEDS: TYLENOL 325 MG TAB PO PRN (22:05)
[2022-10-27 05:15] LABS: BASOPHILS # (AUTO) 0.1 X10^3/uL (0.0-0.1); BASOPHILS % (AUTO) 2.2 % (0.2-1.0); EOSINOPHILS # (AUTO) 0.6 x10^3/uL (0.0-0.2); EOSINOPHILS % (AUTO) 11.3 % (0.9-2.9); HEMATOCRIT 26.6 % (36.0-47.0); HEMOGLOBIN 9.2 g/dL (12.0-16.0); LYMPHOCYTES # (AUTO) 1.3 X10^3/uL (1.3-2.9); LYMPHOCYTES % (AUTO) 25.5 % (21.0-51.0); MEAN CORPUSCULAR HEMOGLOBIN 28.2 pg (27.0-34.0); MEAN CORPUSCULAR HGB CONC 34.6 g/dL (33.0-35.0); MEAN CORPUSCULAR VOLUME 81.4 fL (80.0-100.0); MEAN PLATELET VOLUME 6.8 fL (7.4-11.0); MONOCYTES # (AUTO) 0.5 x10^3/uL (0.3-0.8); MONOCYTES % (AUTO) 9.3 % (0.0-13.0); NEUTROPHILS # (AUTO) 2.6 x10^3/uL (2.2-4.8); NEUTROPHILS % (AUTO) 51.7 % (42.0-75.0); PLATELET COUNT 277 X10^3/uL (150.0-450.0); RED BLOOD COUNT 3.27 X10^6/uL (3.5-5.4); RED CELL DISTRIBUTION WIDTH 15.4 % (11.6-16.5)
[2022-10-27 05:27] LABS: ALANINE AMINOTRANSFERASE 23 Units/L (12-78); ALBUMIN 3.2 g/dL (3.4-5.0); ALKALINE PHOSPHATASE 76 Units/L (46-116); ASPARTATE AMINO TRANSFERASE 18 Units/L (15-37); BLOOD UREA NITROGEN 9 mg/dL (7-18); CALCIUM 7.9 mg/dL (8.5-10.1); CHLORIDE 105 mmol/L (98-107); COR CA(FOR HYPOALB) 8.5 mg/dL (8.5-10.1); CREATININE 0.88 mg/dL (0.55-1.02); GLUCOSE 106 mg/dL (65-99); SODIUM 141 mmol/L (136-145); TOTAL PROTEIN 6.2 g/dL (6.4-8.2); eGFR NON BLACK RACES > 60 (>60)
--- NOTE | 2022-10-27 06:03 | RAD ---
HISTORYChest painSTUDYChest AP [id number] t is enlarged. No congestive heart failure is noted. Kalli are normal. Lung kennedy are clear. There is a large hiatal hernia present. There is a pacemaker present on the left. Bony thorax is unremarkable.IMPRESSIONCardiomegaly without congestive heart failureNo definite infiltratesLarge hiatal herniaElectronically signed by: ISABELL LOERA (Oct 27, 2022 06:02:04)
[2022-10-27] MEDS ORDERED: TORADOL 60 MG VIAL IM ONE (08:29)
[2022-10-27 08:51] LABS: HEMOGLOBIN A1C 5.7 %
[2022-10-27 08:58] LABS: TSH (3RD GENERATION) 3.922 uIU/mL (0.358-3.74)
[2022-10-27] MEDS ORDERED: ZESTRIL TAB 20 MG PO SCH (09:00)
[2022-10-27] MEDS: LOVENOX INJ 40 MG SYR SC SCH (09:45)
--- NOTE | 2022-10-27 09:49 | EKG ---
Test Reason : Arrythmia Blood Pressure : */* mmHG Vent. Rate : 82 BPM Atrial Rate : 82 BPM P-R Int : 168 ms QRS Dur : 78 ms QT Int : 374 ms P-R-T Axes : 70 45 61 degrees QTc Int : 436 ms Sinus rhythm with frequent ventricular-paced complexes in a pattern of bigeminy Abnormal ECG When compared with ECG of 26-OCT-2022 17:56, Oversensing present Confirmed by Kevin Eric ([id number]) on 10/28/2022 6:04:13 PM Referred By: Confirmed By: Kevin Eric
[2022-10-27] MEDS: CATAPRES TAB 0.1 MG PO SCH ×2 (16:03→21:05)
[2022-10-27] MEDS: TYLENOL 325 MG TAB PO PRN (16:07)
[2022-10-27] MEDS ORDERED: TORADOL TAB PO PRN (16:43)
[2022-10-27] MEDS ORDERED: TORADOL 30 MG VIAL IVP ONE (16:43)
[2022-10-27] MEDS: XANAX PO PRN (21:06)
[2022-10-27] MEDS ORDERED: ZOFRAN INJ 4 MG VIAL IVP PRN (22:00)
[2022-10-27] MEDS ORDERED: ZOFRAN INJ 4 MG VIAL ONE (22:02)
[2022-10-28 05:12] LABS: BASOPHILS % (AUTO) 0.6 % (0.2-1.0); EOSINOPHILS # (AUTO) 0.4 x10^3/uL (0.0-0.2); EOSINOPHILS % (AUTO) 6.7 % (0.9-2.9); HEMATOCRIT 26.2 % (36.0-47.0); LYMPHOCYTES # (AUTO) 1.1 X10^3/uL (1.3-2.9); LYMPHOCYTES % (AUTO) 16.8 % (21.0-51.0); MEAN CORPUSCULAR HGB CONC 34.4 g/dL (33.0-35.0); MEAN CORPUSCULAR VOLUME 81.4 fL (80.0-100.0); MEAN PLATELET VOLUME 7.1 fL (7.4-11.0); MONOCYTES # (AUTO) 0.4 x10^3/uL (0.3-0.8); MONOCYTES % (AUTO) 6.5 % (0.0-13.0); NEUTROPHILS # (AUTO) 4.5 x10^3/uL (2.2-4.8); NEUTROPHILS % (AUTO) 69.4 % (42.0-75.0); PLATELET COUNT 237 X10^3/uL (150.0-450.0); RED BLOOD COUNT 3.22 X10^6/uL (3.5-5.4); RED CELL DISTRIBUTION WIDTH 15.2 % (11.6-16.5); WHITE BLOOD COUNT 6.5 X10^3/uL (3.6-10.0)
[2022-10-28 05:35] LABS: ALANINE AMINOTRANSFERASE 21 Units/L (12-78); ALBUMIN 2.9 g/dL (3.4-5.0); ALKALINE PHOSPHATASE 70 Units/L (46-116); ASPARTATE AMINO TRANSFERASE 15 Units/L (15-37); BLOOD UREA NITROGEN 14 mg/dL (7-18); CALCIUM 7.9 mg/dL (8.5-10.1); CARBON DIOXIDE 26.8 mmol/L (21-32); CHLORIDE 104 mmol/L (98-107); CHOL/HDL RATIO 3.2 (0.0-5.0); CHOLESTEROL 106 mg/dL (0-200); COR CA(FOR HYPOALB) 8.8 mg/dL (8.5-10.1); CREATININE 1.03 mg/dL (0.55-1.02); GLUCOSE 110 mg/dL (65-99); HDL CHOLESTEROL 33 mg/dL (40-60); SODIUM 138 mmol/L (136-145); TOTAL PROTEIN 5.7 g/dL (6.4-8.2); TRIGLYCERIDES 95 mg/dL (0-150); eGFR NON BLACK RACES 55 (>60)
[2022-10-28] MEDS: CATAPRES TAB 0.1 MG PO SCH (08:36)
[2022-10-28] MEDS: LOVENOX INJ 40 MG SYR SC SCH (08:36)
[2022-10-28 09:53] VITALS: BP 131/77; PULSE 75; RESP 23; TEMP 98; O2SAT 98
--- NOTE | 2022-10-28 11:17 | DR.H&P ---
H&P History & Physical for Day of: H&P Date: 10/27/22 Chief Complaint Chief Complaint: Chest discomfort Headache Allergies Allergies Allergy/AdvReac Type Severity Reaction Status Date / Time Penicillins Allergy Verified 07/26/22 21:23 prochlorperazine Allergy Verified 07/26/22 21:23 [From Compazine] History of Present Illness History of Present Illness: Pt is a 76 y/o female past medical history of Pacemaker, Hypertension, presenting with chest discomfort for the past 2 days. She stated intermittent, without radiation. Reports headache. EMS noted that blood pressure was significantly elevated and in the ER was noted to be >200 systolic. Labs/imaging: Wbc 5.0, Hgb 9.2, Plt 277, Na 141, K 4.0, Creatinine 0.88, Glucose 106, A1c 5.7, Troponin negative, TSH 3.92. Pt admitted for hypertensive urgency. Has IV hydralazine prn. Will monitor blood pressure and on telemetry. Will start on clonidine. Continue to closely monitor and follow up labs in the morning. Past Medical History Past Medical History: Anxiety, Arthritis, Asthma, COPD, Depression, Diabetes, GERD and Hypertension Past Surgical History Surgical History: Appendectomy, Cholecystectomy and Hysterectomy Family History Family Medical History: Diabetes Mellitus, [place], Coronary Artery Disease and Hypertension Social History Does patient currently use any type of tobacco product: No Have you used tobacco products in the last 12 months: No Type of Tobacco Use: None Does any household member use tobacco: No Alcohol Use: None Drug Use: None Medications Home Medications: Home Medications Medication Instructions Recorded Confirmed Type alprazolam 0.5 mg tablet (Xanax) 0.5 mg PO QHS PRN 10/26/22 10/26/22 History lisinopril 10 mg tablet 10 mg PO BID 10/26/22 10/26/22 History Labs Result Diagrams: 10/28/22 04:30 10/28/22 04:30 Labs: Laboratory WBC 6.5 X10^3/uL (3.6-10.0) 10/28/22 04:30 RBC 3.22 X10^6/uL (3.5-5.4) L 10/28/22 04:30 Hgb 9.0 g/dL (12.0-16.0) L 10/28/22 04:30 Hct 26.2 % (36.0-47.0) L 10/28/22 04:30 MCV 81.4 fL (80.0-100.0) 10/28/22 04:30 MCH 28.0 pg (27.0-34.0) 10/28/22 04:30 MCHC 34.4 g/dL (33.0-35.0) 10/28/22 04:30 RDW 15.2 % (11.6-16.5) 10/28/22 04:30 Plt Count 237 X10^3/uL (150.0-450.0) 10/28/22 04:30 MPV 7.1 fL (7.4-11.0) L 10/28/22 04:30 Neut % (Auto) 69.4 % (42.0-75.0) 10/28/22 04:30 Lymph % (Auto) 16.8 % (21.0-51.0) L 10/28/22 04:30 [place] % (Auto) 6.5 % (0.0-13.0) 10/28/22 04:30 Eos % (Auto) 6.7 % (0.9-2.9) H 10/28/22 04:30 Baso % (Auto) 0.6 % (0.2-1.0) 10/28/22 04:30 Neut # (Auto) 4.5 x10^3/uL (2.2-4.8) 10/28/22 04:30 Lymph # (Auto) 1.1 X10^3/uL (1.3-2.9) L 10/28/22 04:30 [place] # (Auto) 0.4 x10^3/uL (0.3-0.8) 10/28/22 04:30 Eos # (Auto) 0.4 x10^3/uL (0.0-0.2) H 10/28/22 04:30 Baso # (Auto) 0.0 X10^3/uL (0.0-0.1) 10/28/22 04:30 Absolute Nucleated RBC 0.0 /100WBC 10/28/22 04:30 Sodium 138 mmol/L (136-145) 10/28/22 04:30 Corrected Sodium TNP 10/28/22 04:30 Potassium 4.0 mmol/L (3.5-5.1) 10/28/22 04:30 Chloride 104 mmol/L (98-107) 10/28/22 04:30 Carbon Dioxide 26.8 mmol/L (21-32) 10/28/22 04:30 BUN 14 mg/dL (7-18) 10/28/22 04:30 Creatinine 1.03 mg/dL (0.55-1.02) H 10/28/22 04:30 Est GFR (MDRD) Af Amer > 60 (>60) 10/28/22 04:30 Est GFR (MDRD) Non-Af 55 (>60) L 10/28/22 04:30 Glucose 110 mg/dL (65-99) H 10/28/22 04:30 Hemoglobin A1c 5.7 % 10/27/22 04:45 Calcium 7.9 mg/dL (8.5-10.1) L 10/28/22 04:30 Corrected Calcium 8.8 mg/dL (8.5-10.1) 10/28/22 04:30 Magnesium 2.4 mg/dL (2.0-2.9) 10/27/22 04:45 Total Bilirubin 0.50 mg/dL (0.2-1.0) 10/28/22 04:30 AST 15 Units/L (15-37) 10/28/22 04:30 ALT 21 Units/L (12-78) 10/28/22 04:30 Alkaline Phosphatase 70 Units/L (46-116) 10/28/22 04:30 Troponin I High Sens 13.1 ng/L (4.0-60.0) 10/26/22 17:50 Total Protein 5.7 g/dL (6.4-8.2) L 10/28/22 04:30 Albumin 2.9 g/dL (3.4-5.0) L 10/28/22 04:30 Globulin 2.8 g/dL (2.5-4.5) 10/28/22 04:30 Albumin/Globulin Ratio 1.0 Ratio (1.1-2.1) L 10/28/22 04:30 Triglycerides 95 mg/dL (0-150) 10/28/22 04:30 Cholesterol 106 mg/dL (0-200) 10/28/22 04:30 LDL Cholesterol, Calc 54 mg/dL (0-100) 10/28/22 04:30 HDL Cholesterol 33 mg/dL (40-60) L 10/28/22 04:30 Cholesterol/HDL Ratio 3.2 (0.0-5.0) 10/28/22 04:30 Lipase 96 Units/L (73-393) 10/26/22 17:50 TSH 3rd Generation 3.922 uIU/mL (0.358-3.74) H 10/27/22 04:45 Specimen Type Random urine 10/26/22 18:43 Urine Color Pale yellow (YELLOW) 10/26/22 18:43 Urine Appearance Clear (CLEAR) 10/26/22 18:43 Urine pH 6.0 (5.0 - 8.0) 10/26/22 18:43 Ur Specific [place] 1.010 (1.000-1.030) 10/26/22 18:43 Urine Protein Negative (NEGATIVE) 10/26/22 18:43 Urine Glucose (UA) Negative (NEGATIVE) 10/26/22 18:43 Urine Ketones Negative (NEGATIVE) 10/26/22 18:43 Urine Blood Negative (NEGATIVE) 10/26/22 18:43 Urine Nitrite Negative (NEGATIVE) 10/26/22 18:43 Urine Bilirubin Negative (NEGATIVE) 10/26/22 18:43 Urine Urobilinogen Normal (NORMAL) 10/26/22 18:43 Ur Leukocyte Esterase Negative (NEGATIVE) 10/26/22 18:43 Review of Systems Constitutional: No Symptoms Reported Eyes: No Symptoms Reported ENT: No Symptoms Reported Respiratory: No Symptoms Reported Cardiovascular: Chest Pain Gastrointestinal: No Symptoms Reported Genitourinary: No Symptoms Reported Musculoskeletal: No Symptoms Reported Skin: No Symptoms Reported Neurological: No Symptoms Reported Physical Exam Vital Signs: Vital Signs Temperature 97.5 F Pulse Rate 64 Respiratory Rate 30 Blood Pressure 103/57 O2 Sat by Pulse Oximetry 99 Oriented: Normal Eyes: Normal Ear: Normal Nose: Normal Throat: Normal Respiratory: Clear Throughout Cardiovascular: Normal : Normal Auscultation: Bowel Sounds: Normal Palpation: Normal Tenderness: Normal Skin: Normal Musculoskeletal: Normal Psychiatric: Normal Mood Description: Calm and Appropriate Affect: Normal Speech Pattern: Clear and Appropriate Assessment/Plan (1) Hypertensive urgency: Status: Acute Plan: Monitor blood pressure on telemetry. IV hydralazine prn, start on clonidine BID. (2) Essential hypertension: Status: Acute (3) NORMAN (generalized anxiety disorder): Status: Acute Plan: Continue xanax at night. Review H&P Reviewed: Yes Patient was examined?: Yes
--- NOTE | 2022-10-28 11:24 | W.DIS.FURT ---
Summary of Discharge Discharge Summary of Date Date of Exam: 10/28/22 Admission Date Date of Admission: 10/26/22 Admission Diagnosis Patient Problems (Updated 10/28/22 @ 10:39 by Flaco Diaz) Hypertensive urgency (Acute) I16.0 Hospital Course: Pt is a 76 y/o female past medical history of Pacemaker, Hypertension, admitted for hypertensive urgency. She was started on clonidine and had IV hydralazine prn. Labs/imaging: Wbc 6.5, Hgb 9, Plt 237, Na 138, K 4.0, Creatinine 1.03, Glucose 110. Pt responded well to treatment and blood pressure responded appropriately. Pt discharged in stable condition. Rx clonidine, can continue home lisinopril. Instructed to follow up with pcp in 1 week. Vital Signs: Vital Signs (72 hours) 10/26/22 17:38 10/26/22 17:55 10/26/22 17:39 Temperature 99.1 F Pulse Rate 92 H 89 Respiratory Rate 22 18 22 Blood Pressure 203/101 O2 Sat by Pulse Oximetry 95 97 Oxygen Delivery Method Nasal Cannula Oxygen Flow Rate FIO2% 10/26/22 17:45 10/26/22 17:49 10/26/22 17:49 Temperature Pulse Rate 87 79 Respiratory Rate 19 24 Blood Pressure 221/113 O2 Sat by Pulse Oximetry 97 97 Oxygen Delivery Method Oxygen Flow Rate FIO2% 10/26/22 18:00 10/26/22 18:00 10/26/22 18:12 Temperature Pulse Rate 100 H Respiratory Rate 46 H Blood Pressure 206/107 199/97 O2 Sat by Pulse Oximetry 95 Oxygen Delivery Method Oxygen Flow Rate FIO2% 10/26/22 18:11 10/26/22 18:11 10/26/22 18:15 Temperature Pulse Rate 104 H 104 H Respiratory Rate 37 H 35 H Blood Pressure 199/97 O2 Sat by Pulse Oximetry 95 96 Oxygen Delivery Method Oxygen Flow Rate FIO2% 10/26/22 18:30 10/26/22 18:31 10/26/22 18:31 Temperature Pulse Rate 97 H 100 H Respiratory Rate 24 25 H Blood Pressure 186/84 O2 Sat by Pulse Oximetry 96 96 Oxygen Delivery Method Oxygen Flow Rate FIO2% 10/26/22 18:45 10/26/22 19:00 10/26/22 19:01 Temperature Pulse Rate 97 H 102 H 98 H Respiratory Rate 37 H 28 H 25 H Blood Pressure O2 Sat by Pulse Oximetry 97 92 L 97 Oxygen Delivery Method Oxygen Flow Rate FIO2% 10/26/22 19:01 10/26/22 19:03 10/26/22 19:03 Temperature Pulse Rate 101 H Respiratory Rate 33 H Blood Pressure 173/81 177/84 O2 Sat by Pulse Oximetry 96 Oxygen Delivery Method Oxygen Flow Rate FIO2% 10/26/22 19:15 10/26/22 19:30 10/26/22 19:30 Temperature Pulse Rate 96 H 91 H Respiratory Rate 36 H 24 Blood Pressure 161/77 O2 Sat by Pulse Oximetry 96 97 Oxygen Delivery Method Oxygen Flow Rate FIO2% 10/26/22 20:23 10/26/22 19:57 10/26/22 19:57 Temperature 98.5 F Pulse Rate 87 Respiratory Rate 18 Blood Pressure 163/79 O2 Sat by Pulse Oximetry 99 Oxygen Delivery Method Nasal Cannula Oxygen Flow Rate 2 FIO2% 10/26/22 20:26 10/26/22 20:26 10/26/22 19:45 Temperature Pulse Rate 99 H Respiratory Rate 23 Blood Pressure 159/77 O2 Sat by Pulse Oximetry 98 Oxygen Delivery Method Nasal Cannula Oxygen Flow Rate 2 FIO2% 10/26/22 22:05 10/26/22 21:00 10/26/22 21:30 Temperature Pulse Rate 99 H 96 H Respiratory Rate 20 24 22 Blood Pressure 151/86 155/77 O2 Sat by Pulse Oximetry 98 99 Oxygen Delivery Method Oxygen Flow Rate FIO2% 10/26/22 22:00 10/26/22 23:05 10/26/22 23:00 Temperature Pulse Rate 83 66 Respiratory Rate 23 20 34 H Blood Pressure 105/55 98/55 O2 Sat by Pulse Oximetry 99 98 Oxygen Delivery Method Oxygen Flow Rate FIO2% 10/27/22 00:00 10/26/22 23:30 10/26/22 22:30 Temperature 98.3 F Pulse Rate 59 L 63 78 Respiratory Rate 27 H 21 27 H Blood Pressure 98/57 102/56 100/54 O2 Sat by Pulse Oximetry 99 99 98 Oxygen Delivery Method Oxygen Flow Rate FIO2% 10/27/22 00:30 10/27/22 01:00 10/27/22 01:30 Temperature Pulse Rate 55 L 57 L 59 L Respiratory Rate 17 18 19 Blood Pressure 86/52 90/52 92/55 O2 Sat by Pulse Oximetry 98 100 100 Oxygen Delivery Method Oxygen Flow Rate FIO2% 10/27/22 02:00 10/27/22 02:30 10/27/22 03:06 Temperature Pulse Rate 61 59 L 60 Respiratory Rate 19 21 25 H Blood Pressure 88/52 87/50 94/68 O2 Sat by Pulse Oximetry 100 100 99 Oxygen Delivery Method Oxygen Flow Rate FIO2% 10/27/22 04:00 10/27/22 05:00 10/27/22 06:00 Temperature 98.1 F Pulse Rate 60 65 62 Respiratory Rate 20 28 H 27 H Blood Pressure 93/50 100/60 106/58 O2 Sat by Pulse Oximetry 99 100 100 Oxygen Delivery Method Oxygen Flow Rate FIO2% 10/26/22 21:02 10/26/22 21:02 10/26/22 21:30 Temperature Pulse Rate 99 H Respiratory Rate 18 Blood Pressure 151/86 155/77 O2 Sat by Pulse Oximetry 98 Oxygen Delivery Method Oxygen Flow Rate FIO2% 10/26/22 21:30 10/26/22 22:00 10/26/22 22:01 Temperature Pulse Rate 86 78 Respiratory Rate 22 21 Blood Pressure 105/55 O2 Sat by Pulse Oximetry 99 98 Oxygen Delivery Method Oxygen Flow Rate FIO2% 10/26/22 22:01 10/26/22 22:30 10/26/22 22:30 Temperature Pulse Rate 83 78 Respiratory Rate 23 27 H Blood Pressure 100/54 O2 Sat by Pulse Oximetry 99 98 Oxygen Delivery Method Oxygen Flow Rate FIO2% 10/26/22 23:00 10/26/22 23:00 10/26/22 23:30 Temperature Pulse Rate 66 63 Respiratory Rate 34 H 21 Blood Pressure 98/55 O2 Sat by Pulse Oximetry 98 99 Oxygen Delivery Method Oxygen Flow Rate FIO2% 10/26/22 23:30 10/27/22 00:00 10/27/22 00:00 Temperature Pulse Rate 59 L Respiratory Rate 27 H Blood Pressure 102/56 98/57 O2 Sat by Pulse Oximetry 99 Oxygen Delivery Method Oxygen Flow Rate FIO2% 10/27/22 00:30 10/27/22 00:30 10/27/22 00:31 Temperature Pulse Rate 55 L Respiratory Rate 17 Blood Pressure 73/48 75/50 O2 Sat by Pulse Oximetry 98 Oxygen Delivery Method Oxygen Flow Rate FIO2% 10/27/22 00:31 10/27/22 00:33 10/27/22 00:33 Temperature Pulse Rate 55 L 61 Respiratory Rate 17 22 Blood Pressure 86/52 O2 Sat by Pulse Oximetry 98 99 Oxygen Delivery Method Oxygen Flow Rate FIO2% 10/27/22 01:00 10/27/22 01:00 10/27/22 01:30 Temperature Pulse Rate 57 L Respiratory Rate 18 Blood Pressure 90/52 92/55 O2 Sat by Pulse Oximetry 100 Oxygen Delivery Method Oxygen Flow Rate FIO2% 10/27/22 01:30 10/27/22 02:00 10/27/22 02:00 Temperature Pulse Rate 59 L 61 Respiratory Rate 19 19 Blood Pressure 88/52 O2 Sat by Pulse Oximetry 100 100 Oxygen Delivery Method Oxygen Flow Rate FIO2% 10/27/22 02:30 10/27/22 02:30 10/27/22 03:00 Temperature Pulse Rate 59 L 62 Respiratory Rate 21 23 Blood Pressure 87/50 O2 Sat by Pulse Oximetry 100 99 Oxygen Delivery Method Oxygen Flow Rate FIO2% 10/27/22 03:01 10/27/22 03:01 10/27/22 03:30 Temperature Pulse Rate 62 Respiratory Rate 23 Blood Pressure 94/68 95/55 O2 Sat by Pulse Oximetry 100 Oxygen Delivery Method Oxygen Flow Rate FIO2% 10/27/22 03:30 10/27/22 04:00 10/27/22 04:00 Temperature Pulse Rate 58 L 60 Respiratory Rate 22 20 Blood Pressure 93/50 O2 Sat by Pulse Oximetry 99 99 Oxygen Delivery Method Oxygen Flow Rate FIO2% 10/27/22 04:30 10/27/22 04:30 10/27/22 05:00 Temperature Pulse Rate 61 Respiratory Rate 22 Blood Pressure 105/55 100/60 O2 Sat by Pulse Oximetry 100 Oxygen Delivery Method Oxygen Flow Rate FIO2% 10/27/22 05:00 10/27/22 05:30 10/27/22 05:30 Temperature Pulse Rate 65 58 L Respiratory Rate 28 H 25 H Blood Pressure 105/59 O2 Sat by Pulse Oximetry 100 100 Oxygen Delivery Method Oxygen Flow Rate FIO2% 10/27/22 06:00 10/27/22 06:00 10/27/22 06:30 Temperature Pulse Rate 64 60 Respiratory Rate 26 H 23 Blood Pressure 106/58 O2 Sat by Pulse Oximetry 100 100 Oxygen Delivery Method Oxygen Flow Rate FIO2% 10/27/22 06:30 10/27/22 07:00 10/27/22 07:00 Temperature Pulse Rate 62 Respiratory Rate 26 H Blood Pressure 106/56 108/54 O2 Sat by Pulse Oximetry 100 Oxygen Delivery Method Oxygen Flow Rate FIO2% 10/27/22 07:34 10/27/22 07:34 10/27/22 08:00 Temperature Pulse Rate 79 74 Respiratory Rate 34 H 24 Blood Pressure 158/78 O2 Sat by Pulse Oximetry 99 100 Oxygen Delivery Method Oxygen Flow Rate FIO2% 10/27/22 08:01 10/27/22 08:01 10/27/22 09:10 Temperature Pulse Rate 72 Respiratory Rate 21 18 Blood Pressure 130/106 O2 Sat by Pulse Oximetry 100 Oxygen Delivery Method Oxygen Flow Rate FIO2% 10/27/22 08:31 10/27/22 08:31 10/27/22 09:00 Temperature Pulse Rate 80 Respiratory Rate 20 Blood Pressure 131/61 106/58 O2 Sat by Pulse Oximetry 100 Oxygen Delivery Method Oxygen Flow Rate FIO2% 10/27/22 09:00 10/27/22 07:00 10/26/22 18:25 Temperature Pulse Rate 71 Respiratory Rate 20 18 Blood Pressure O2 Sat by Pulse Oximetry 98 Oxygen Delivery Method Nasal Cannula Oxygen Flow Rate 2 FIO2% 10/27/22 09:40 10/27/22 09:30 10/27/22 09:30 Temperature Pulse Rate 71 Respiratory Rate 20 21 Blood Pressure 106/56 O2 Sat by Pulse Oximetry 99 Oxygen Delivery Method Oxygen Flow Rate FIO2% 10/27/22 10:00 10/27/22 10:00 10/27/22 10:30 Temperature Pulse Rate 67 Respiratory Rate 23 Blood Pressure 97/56 110/58 O2 Sat by Pulse Oximetry 98 Oxygen Delivery Method Oxygen Flow Rate FIO2% 10/27/22 10:30 10/27/22 11:00 10/27/22 11:00 Temperature Pulse Rate 67 70 Respiratory Rate 22 21 Blood Pressure 110/55 O2 Sat by Pulse Oximetry 98 98 Oxygen Delivery Method Oxygen Flow Rate FIO2% 10/27/22 11:30 10/27/22 11:30 10/27/22 12:01 Temperature Pulse Rate 66 76 Respiratory Rate 21 Blood Pressure 126/60 O2 Sat by Pulse Oximetry 98 94 L Oxygen Delivery Method Oxygen Flow Rate FIO2% 10/27/22 12:03 10/27/22 12:04 10/27/22 12:04 Temperature Pulse Rate 75 72 Respiratory Rate 18 22 Blood Pressure 139/62 O2 Sat by Pulse Oximetry 95 95 Oxygen Delivery Method Oxygen Flow Rate FIO2% 10/27/22 12:30 10/27/22 12:30 10/27/22 13:00 Temperature Pulse Rate 82 70 Respiratory Rate 20 20 Blood Pressure 157/83 O2 Sat by Pulse Oximetry 96 100 Oxygen Delivery Method Oxygen Flow Rate FIO2% 10/27/22 13:01 10/27/22 13:01 10/27/22 13:30 Temperature Pulse Rate 67 Respiratory Rate 18 Blood Pressure 139/74 118/67 O2 Sat by Pulse Oximetry 100 Oxygen Delivery Method Oxygen Flow Rate FIO2% 10/27/22 13:30 10/27/22 14:00 10/27/22 14:00 Temperature Pulse Rate 69 69 Respiratory Rate 27 H 20 Blood Pressure 134/69 O2 Sat by Pulse Oximetry 99 98 Oxygen Delivery Method Oxygen Flow Rate FIO2% 10/27/22 16:07 10/27/22 16:36 10/27/22 17:14 Temperature Pulse Rate Respiratory Rate 18 18 Blood Pressure O2 Sat by Pulse Oximetry Oxygen Delivery Method Nasal Cannula Oxygen Flow Rate 2 FIO2% 28 10/27/22 17:07 10/27/22 14:30 10/27/22 14:30 Temperature Pulse Rate 69 Respiratory Rate 18 22 Blood Pressure 116/59 O2 Sat by Pulse Oximetry 99 Oxygen Delivery Method Oxygen Flow Rate FIO2% 10/27/22 15:00 10/27/22 15:00 10/27/22 15:30 Temperature Pulse Rate 66 Respiratory Rate 19 Blood Pressure 152/73 152/72 O2 Sat by Pulse Oximetry 98 Oxygen Delivery Method Oxygen Flow Rate FIO2% 10/27/22 15:30 10/27/22 16:00 10/27/22 16:01 Temperature 97.8 F Pulse Rate 66 66 64 Respiratory Rate 34 H 14 24 Blood Pressure O2 Sat by Pulse Oximetry 98 98 99 Oxygen Delivery Method Oxygen Flow Rate FIO2% 10/27/22 16:01 10/27/22 16:06 10/27/22 16:06 Temperature Pulse Rate 70 Respiratory Rate 29 H Blood Pressure 156/67 150/71 O2 Sat by Pulse Oximetry 99 Oxygen Delivery Method Oxygen Flow Rate FIO2% 10/27/22 16:30 10/27/22 16:30 10/27/22 16:46 Temperature Pulse Rate 67 70 Respiratory Rate 23 21 Blood Pressure 153/82 O2 Sat by Pulse Oximetry 98 98 Oxygen Delivery Method Oxygen Flow Rate FIO2% 10/27/22 16:46 10/27/22 17:00 10/27/22 17:00 Temperature Pulse Rate 70 Respiratory Rate 20 Blood Pressure 168/79 122/65 O2 Sat by Pulse Oximetry 100 Oxygen Delivery Method Oxygen Flow Rate FIO2% 10/27/22 17:30 10/27/22 17:30 10/27/22 18:16 Temperature Pulse Rate 62 70 Respiratory Rate 24 24 Blood Pressure 135/63 O2 Sat by Pulse Oximetry 99 Oxygen Delivery Method Oxygen Flow Rate FIO2% 10/27/22 18:20 10/27/22 18:20 10/27/22 18:30 Temperature Pulse Rate 67 66 Respiratory Rate 22 20 Blood Pressure 145/77 O2 Sat by Pulse Oximetry 100 99 Oxygen Delivery Method Oxygen Flow Rate FIO2% 10/27/22 18:30 10/27/22 17:44 10/27/22 19:00 Temperature Pulse Rate Respiratory Rate 17 Blood Pressure 154/73 O2 Sat by Pulse Oximetry Oxygen Delivery Method Nasal Cannula Oxygen Flow Rate 2 FIO2% 10/27/22 21:06 10/27/22 20:00 10/28/22 00:00 Temperature 98.2 F 97.4 F L Pulse Rate 66 64 Respiratory Rate 18 23 22 Blood Pressure 121/56 116/58 O2 Sat by Pulse Oximetry 98 97 Oxygen Delivery Method Nasal Cannula Oxygen Flow Rate 2 FIO2% 10/27/22 22:06 10/28/22 04:00 10/27/22 21:12 Temperature 97.5 F L Pulse Rate 64 Respiratory Rate 22 30 H Blood Pressure 103/57 O2 Sat by Pulse Oximetry 99 Oxygen Delivery Method Nasal Cannula Nasal Cannula Oxygen Flow Rate 2 2 FIO2% 28 10/28/22 09:05 10/28/22 07:00 10/27/22 19:00 Temperature Pulse Rate Respiratory Rate Blood Pressure 131/61 O2 Sat by Pulse Oximetry Oxygen Delivery Method Nasal Cannula Nasal Cannula Oxygen Flow Rate 2 2 FIO2% 28 10/27/22 19:00 10/27/22 20:00 10/27/22 20:01 Temperature Pulse Rate 63 64 Respiratory Rate 19 20 Blood Pressure 121/56 O2 Sat by Pulse Oximetry 100 98 Oxygen Delivery Method Oxygen Flow Rate FIO2% 10/27/22 20:01 10/27/22 21:00 10/27/22 21:00 Temperature Pulse Rate 66 56 L Respiratory Rate 23 18 Blood Pressure 112/62 O2 Sat by Pulse Oximetry 98 100 Oxygen Delivery Method Oxygen Flow Rate FIO2% 10/27/22 22:00 10/27/22 22:08 10/27/22 22:08 Temperature Pulse Rate 72 60 Respiratory Rate 20 22 Blood Pressure 112/55 O2 Sat by Pulse Oximetry 97 98 Oxygen Delivery Method Oxygen Flow Rate FIO2% 10/27/22 23:00 10/28/22 00:00 10/28/22 00:38 Temperature Pulse Rate 68 58 L Respiratory Rate 20 23 Blood Pressure 116/58 O2 Sat by Pulse Oximetry 98 93 L Oxygen Delivery Method Oxygen Flow Rate FIO2% 10/28/22 00:38 10/28/22 01:00 10/28/22 02:00 Temperature Pulse Rate 64 63 61 Respiratory Rate 20 23 23 Blood Pressure O2 Sat by Pulse Oximetry 98 98 99 Oxygen Delivery Method Oxygen Flow Rate FIO2% 10/28/22 02:01 10/28/22 02:01 10/28/22 03:00 Temperature Pulse Rate 66 57 L Respiratory Rate 18 21 Blood Pressure 105/58 O2 Sat by Pulse Oximetry 98 97 Oxygen Delivery Method Oxygen Flow Rate FIO2% 10/28/22 04:00 10/28/22 04:00 10/28/22 05:00 Temperature Pulse Rate 63 63 Respiratory Rate 21 22 Blood Pressure 103/57 O2 Sat by Pulse Oximetry 99 96 Oxygen Delivery Method Oxygen Flow Rate FIO2% 10/28/22 06:00 10/28/22 06:01 10/28/22 06:01 Temperature Pulse Rate 58 L 54 L Respiratory Rate 20 21 Blood Pressure 115/58 O2 Sat by Pulse Oximetry 98 99 Oxygen Delivery Method Oxygen Flow Rate FIO2% 10/28/22 07:00 10/28/22 08:02 10/28/22 08:24 Temperature 98.0 F Pulse Rate 53 L 68 60 Respiratory Rate 20 20 20 Blood Pressure O2 Sat by Pulse Oximetry 98 87 L 99 Oxygen Delivery Method Oxygen Flow Rate FIO2% 10/28/22 08:24 10/28/22 09:00 Temperature Pulse Rate 75 Respiratory Rate 23 Blood Pressure 131/77 O2 Sat by Pulse Oximetry 98 Oxygen Delivery Method Oxygen Flow Rate FIO2% Labs: Laboratory Last Values WBC 6.5 X10^3/uL (3.6-10.0) 10/28/22 04:30 RBC 3.22 X10^6/uL (3.5-5.4) L 10/28/22 04:30 Hgb 9.0 g/dL (12.0-16.0) L 10/28/22 04:30 Hct 26.2 % (36.0-47.0) L 10/28/22 04:30 MCV 81.4 fL (80.0-100.0) 10/28/22 04:30 MCH 28.0 pg (27.0-34.0) 10/28/22 04:30 MCHC 34.4 g/dL (33.0-35.0) 10/28/22 04:30 RDW 15.2 % (11.6-16.5) 10/28/22 04:30 Plt Count 237 X10^3/uL (150.0-450.0) 10/28/22 04:30 MPV 7.1 fL (7.4-11.0) L 10/28/22 04:30 Neut % (Auto) 69.4 % (42.0-75.0) 10/28/22 04:30 Lymph % (Auto) 16.8 % (21.0-51.0) L 10/28/22 04:30 Gregory % (Auto) 6.5 % (0.0-13.0) 10/28/22 04:30 Eos % (Auto) 6.7 % (0.9-2.9) H 10/28/22 04:30 Baso % (Auto) 0.6 % (0.2-1.0) 10/28/22 04:30 Neut # (Auto) 4.5 x10^3/uL (2.2-4.8) 10/28/22 04:30 Lymph # (Auto) 1.1 X10^3/uL (1.3-2.9) L 10/28/22 04:30 Gregory # (Auto) 0.4 x10^3/uL (0.3-0.8) 10/28/22 04:30 Eos # (Auto) 0.4 x10^3/uL (0.0-0.2) H 10/28/22 04:30 Baso # (Auto) 0.0 X10^3/uL (0.0-0.1) 10/28/22 04:30 Absolute Nucleated RBC 0.0 /100WBC 10/28/22 04:30 Sodium 138 mmol/L (136-145) 10/28/22 04:30 Corrected Sodium TNP 10/28/22 04:30 Potassium 4.0 mmol/L (3.5-5.1) 10/28/22 04:30 Chloride 104 mmol/L (98-107) 10/28/22 04:30 Carbon Dioxide 26.8 mmol/L (21-32) 10/28/22 04:30 BUN 14 mg/dL (7-18) 10/28/22 04:30 Creatinine 1.03 mg/dL (0.55-1.02) H 10/28/22 04:30 Est GFR (MDRD) Af Amer > 60 (>60) 10/28/22 04:30 Est GFR (MDRD) Non-Af 55 (>60) L 10/28/22 04:30 Glucose 110 mg/dL (65-99) H 10/28/22 04:30 Hemoglobin A1c 5.7 % 10/27/22 04:45 Calcium 7.9 mg/dL (8.5-10.1) L 10/28/22 04:30 Corrected Calcium 8.8 mg/dL (8.5-10.1) 10/28/22 04:30 Magnesium 2.4 mg/dL (2.0-2.9) 10/27/22 04:45 Total Bilirubin 0.50 mg/dL (0.2-1.0) 10/28/22 04:30 AST 15 Units/L (15-37) 10/28/22 04:30 ALT 21 Units/L (12-78) 10/28/22 04:30 Alkaline Phosphatase 70 Units/L (46-116) 10/28/22 04:30 Troponin I High Sens 13.1 ng/L (4.0-60.0) 10/26/22 17:50 Total Protein 5.7 g/dL (6.4-8.2) L 10/28/22 04:30 Albumin 2.9 g/dL (3.4-5.0) L 10/28/22 04:30 Globulin 2.8 g/dL (2.5-4.5) 10/28/22 04:30 Albumin/Globulin Ratio 1.0 Ratio (1.1-2.1) L 10/28/22 04:30 Triglycerides 95 mg/dL (0-150) 10/28/22 04:30 Cholesterol 106 mg/dL (0-200) 10/28/22 04:30 LDL Cholesterol, Calc 54 mg/dL (0-100) 10/28/22 04:30 HDL Cholesterol 33 mg/dL (40-60) L 10/28/22 04:30 Cholesterol/HDL Ratio 3.2 (0.0-5.0) 10/28/22 04:30 Lipase 96 Units/L (73-393) 10/26/22 17:50 TSH 3rd Generation 3.922 uIU/mL (0.358-3.74) H 10/27/22 04:45 Specimen Type Random urine 10/26/22 18:43 Urine Color Pale yellow (YELLOW) 10/26/22 18:43 Urine Appearance Clear (CLEAR) 10/26/22 18:43 Urine pH 6.0 (5.0 - 8.0) 10/26/22 18:43 Ur Specific Harrison 1.010 (1.000-1.030) 10/26/22 18:43 Urine Protein Negative (NEGATIVE) 10/26/22 18:43 Urine Glucose (UA) Negative (NEGATIVE) 10/26/22 18:43 Urine Ketones Negative (NEGATIVE) 10/26/22 18:43 Urine Blood Negative (NEGATIVE) 10/26/22 18:43 Urine Nitrite Negative (NEGATIVE) 10/26/22 18:43 Urine Bilirubin Negative (NEGATIVE) 10/26/22 18:43 Urine Urobilinogen Normal (NORMAL) 10/26/22 18:43 Ur Leukocyte Esterase Negative (NEGATIVE) 10/26/22 18:43 Reason For Visit: HYPERTENSIVE URGENCY Discharge Date Discharge Date: 10/28/22 Discharge Diagnosis All Active Problems (Updated 10/28/22 @ 10:39 by Flaco Diaz) NORMAN (generalized anxiety disorder) (Acute) Altered mental status (Acute) Hypertension (Acute) Arthritis (Acute) Contusion of scalp (Acute) Fall (Acute) Abnormal cardiac enzyme level (Acute) Acute head trauma (Acute) Shoulder sprain (Acute) Contusion of right chest wall (Acute) Contusion of rib on right side (Acute) Syncope (Acute) Weakness (Acute) Vaginal yeast infection (Acute) Ankle pain (Acute) Rheumatoid arthritis flare (Acute) Acute right-sided back pain (Acute) Rib pain on right side (Acute) Hypertension (Acute) Headache (Acute) Hypertensive urgency (Acute) Hypokalemia (Acute) Seizure disorder, secondary (Acute) Essential hypertension (Acute) Hiatal hernia (Acute) Chest pain (Acute) Seizure disorder (Acute) Chronic kidney disease (Chronic) Plan of Treatment: Continue with present treatment and follow up plan. Pt is to keep follow up appointment as instructed and take medications as ordered. Discharge Medications Discharge Medications: Penicillins Allergy (Verified 07/26/22 21:23) prochlorperazine [From Compazine] Allergy (Verified 07/26/22 21:23) CONTINUE taking the following medications alprazolam 0.5 mg tablet (Xanax) 0.5 mg PO QHS PRN 10/26/22 [History] lisinopril 10 mg tablet 10 mg PO BID 10/26/22 [History] New Prescriptions alprazolam 0.5 mg disintegrating tablet 0.5 mg PO QHS PRN 30 days #30 tabs 10/28/22 [Rx] clonidine HCl 0.1 mg tablet 0.1 mg PO BID 30 days #60 tabs 10/28/22 [Rx] Discharge Disposition Discharge Disposition: Home Discharge Condition: Stable Discharge Plan Discharge Plan Hospital Course: Pt is a 76 y/o female past medical history of Pacemaker, Hypertension, admitted for hypertensive urgency. She was started on clonidine and had IV hydralazine prn. Labs/imaging: Wbc 6.5, Hgb 9, Plt 237, Na 138, K 4.0, Creatinine 1.03, Glucose 110. Pt responded well to treatment and blood pressure responded appropriately. Pt discharged in stable condition. Rx clonidine, can continue home lisinopril. Instructed to follow up with pcp in 1 week. Patient Disposition: 01 HOME, SELF-CARE Condition: Stable Health Concerns: Post Hospitalization: new medications and changes needed to prevent readmission or further decline. Pt educated and given instructions on all concerns. Plan of Treatment: Continue with present treatment and follow up plan. Pt is to keep follow up appointment as instructed and take medications as ordered. Prescriptions: New clonidine HCl 0.1 mg Tablet 0.1 mg PO BID 30 Days Qty: 60 0RF alprazolam 0.5 mg Tablet,Disintegrating 0.5 mg PO QHS MDD 1 PRN30 Days Qty: 30 0RF Continued alprazolam [Xanax] 0.5 mg Tablet 0.5 mg PO QHS PRN lisinopril 10 mg Tablet 10 mg PO BID Orders to Discharge Patient Discharge Orders: Discharge (Routine); Ordered 10/28/22 Ordered By: Flaco Diaz Follow ups/Referrals Follow ups/Referrals: Flaco Diaz [STAFF PHYSICIAN] - 1 WEEK Instructions Stand Alone Forms: Excuse From Work or School, Post Hospital Follow Up Care
== END 2022-10-28 12:05 | disposition home or self-care (01) ==
LOC: ER 17:32 → ICU 17:32
PROVIDERS: ADMIT Family Medicine; ATTEND Family Medicine